=== PATIENT | female | born 1945 | race Caucasian/White ===

== ENCOUNTER 2017-06-02 13:48 | Inpatient (IN) ==
[2017-06-02] MEDS ORDERED: Ondansetron 4 MG/2 ML VIAL IVP PRN (17:23)
[2017-06-02] MEDS ORDERED: Acetaminophen 325 MG TABLET PO PRN (17:23)
[2017-06-02] MEDS ORDERED: Naloxone 0.4 MG/ML INJ IVP PRN (17:23)
[2017-06-02] MEDS ORDERED: *HR* Heparin 5,000 UNIT/ML VIAL IVP ONE (17:29)
[2017-06-02] MEDS ORDERED: *HR* Heparin 5,000 UNIT/ML VIAL IVP PRN (17:29)
--- NOTE | 2017-06-02 17:36 | Internal Med History&Physical ---
Date of Encounter: 06/02/17 Time of Encounter: 16:30 Assessment and Plan (1) Pulmonary embolism Current visit: Yes Status: Acute Patient presents with dyspnea, tachycardia and hypoxia. CT angiogram of chest done in the emergency room shows large right-sided PE involving all segmental branches on the right, left upper lobe arteries. Patient is noted to be on Xarelto for the last 1 month for atrial fibrillation. We will hold this for now and start IV heparin drip, monitor PTT. Oncology consulted, full consult in am. Check B/L Lower extremity Venous Doppler. Qualifiers: Pulmonary embolism type: other Chronicity: acute Acute cor pulmonale presence: without acute cor pulmonale Qualified Code(s): I26.99 - Other pulmonary embolism without acute cor pulmonale (2) Atrial fibrillation with rapid ventricular response Current visit: Yes Status: Acute Did not respond to a dose of IV Cardizem push in the ER; started on IV Cardizem drip, titrate to maintain HR<110. Anticoagulation as above. SHe can be switched over to PO Cardizem if tolerated. Second Troponin noted to be 0.07, likely due to tachycardia. Continue Telemetry monitoring and cycle Troponins. Check 2D EChocardiogram. High risk for complications. (3) Hypothyroidism Current visit: Yes Status: Chronic resume Levothyroxine. Qualifiers: Hypothyroidism type: unspecified Qualified Code(s): E03.9 - Hypothyroidism , unspecified (4) Vulvar cancer Current visit: Yes Status: Chronic Receiving chemoradiation; first session of RT supposed to be today but patient presented to ER; Oncology consulted for further recommendations. Internal Medicine - H&P: HPI Chief complaint: Chest pain Admitted From: Emergency Dept Plans for Post Hospital Care: Home History of present illness: Ms. Holt is a 72 year old female with history of HIV fibrillation, vulvar cancer currently on chemoradiation, presents with complaints of sudden onset of chest tightness. Patient reports being in her usual state of health until this morning and was on her way for her first session of radiation when she developed sudden onset of chest tightness associated with shortness of breath and difficulty in taking a deep breath and some dizziness. No similar previous episodes. She reports no palpitations, syncope, nausea or vomiting. No fever, chills, productive cough. She recently underwent surgery for pelvic lymph node dissection and subsequently developed leg swelling, that is currently not any worse. Past Med Surg Social Fam HX - Past Medical History Medical history: atrial fibrillation, cancer, hypertension, thyroid disease Psychiatric history: anxiety - Past Surgical History Surgical History: hysterectomy, knee replacement (Bilateral), orthopedic, other (Right heel surgery) - Social History Smoking Status: Never smoker Smokeless Tobacco Status: No Alcohol use: none Drug use: none Current living situation: Home - Independent Activity Level: Independent ambulation Recent Out of Country Travel Within the Last 8 Weeks: No - Family History Father Hx Family Cardiac Disorders: Yes ([place]) Hx Family Respiratory Disorders: No Hx Family Cancer: Yes (prostate) Hx Family GI Disorders: No Hx Family Genitourinary Disorders: No Hx Family Endocrine Disorder: Yes (DM) Hx Family Musculoskeletal Disorders: No Hx Family Neuromuscular Disorders: No Hx Family Neurologic Disorders: No Hx Family HEENT Disorders: No Hx Family Autoimmune Disorders: No Hx Family Reproductive Disorders: No Hx Family Psychosocial Disorders: No Hx Family Medical Disorders: No Internal Medicine - H&P: Meds Levothyroxine [Synthroid] 150 mcg PO QAM 04/25/17 [History] Topiramate [Topamax] 25 mg PO HS 04/25/17 [History] Ondansetron [Zofran] 4 mg PO Q8HR PRN #90 tablet 05/02/17 [Rx] Prochlorperazine Maleate [Compazine] 10 mg PO Q8HR PRN #90 tablet 05/02/17 [Rx] Oxycodone HCl [Oxaydo] 5 - 10 mg PO Q4-6H PRN #120 tablet.orl 05/14/17 [Rx] Rivaroxaban [Xarelto] 20 mg PO DAILY 05/14/17 [History] Dibucaine [Nupercainal] 56.7 gm RC Q3-4H PRN #1 oint...g. 05/21/17 [Rx] Allergies No Known Allergies Allergy (Verified 04/25/17 13:55) All Systems PM: A 10-system review of systems was performed and is negative for pertinent findings except as documented above in the HPI. - Constitutional Constitutional: no chills, no fever(s), no night sweats - EENT Eyes: no change in vision, no discharge, no pain, no photophobia Ears: no ear discharge, no ear pain, no tinnitus Nose, mouth and throat: no dysphagia, no nasal discharge, no neck pain, no sore throat - Cardiovascular Cardiovascular ROS IM: chest pain, dyspnea, dyspnea on exertion, edema - Respiratory Respiratory: dyspnea, dyspnea on exertion - Gastrointestinal Gastrointestinal: no abdominal pain, no diarrhea, no hematemesis, no hematochezia, no melena, no nausea, no vomiting - Genitourinary Genitourinary: no change in urinary stream, no dysuria, no flank pain, no hematuria - Musculoskeletal Musculoskeletal ROS IM: no numbness, no tingling - Integumentary Integumentary IM: no rash, no unusual bruising - Neurological Neurological ROS: no confusion, no convulsions, no focal weakness, no numbness, no tingling, no tremor(s) - Hematologic/Lymphatic Hematologic/Lymphatic: no easy bruising - Constitutional Vitals: Temp Pulse Resp BP Pulse Ox 98.0 F 132 18 121/89 96 06/02/17 15:57 06/02/17 15:57 06/02/17 15:57 06/02/17 15:57 06/02/17 16:04 General appearance: Present: A&O X 3, answers questions appropriately - Respiratory Respiratory exam: Present: CTAB. Absent: accessory muscle use, rales, rhonchi, wheezes - Cardiovascular Cardiovascular exam: Present: irregular rhythm, +S1, +S2, tachycardia. Absent: diastolic murmur, gallop, rubs, systolic murmur - GI/Abdominal GI/Abdominal exam: Present: normal bowel sounds, soft, no peritoneal signs. Absent: distended, tenderness - Extremities Exam Extremities exam: Present: full ROM, pedal edema (3+ pitting pedal edema bilaterally extending up to knees), warm, radial pulses palpable and symetrical. Absent: calf tenderness, cyanotic - Neurological Exam Neurological exam: Present: CN II-XII intact, oriented X3, no focal deficits. Absent: pronater drift, facial droop, speech deficit - Skin Skin exam: Present: dry, intact Internal Med - H&P Results - Labs CBC & Chem 7: 06/02/17 17:34 - EKG Data -: EKG Interpreted by Myself (Irregular narrow complex tachycardia at ventricular rate 1 68 bpm)
[2017-06-02 17:53] LABS: Mean Corpuscular Hemoglobin 27.6 pg (28.0-33.3); Mean Platelet Volume 10.2 fL (9.4-12.4)
[2017-06-02 17:55] LABS: Hematocrit 35.5 % (35.3-44.9); Immature Platelets 3.1 % (1.1-6.1); Mean Corpuscular Volume 89.2 fL (83.0-100.0); Red Blood Count 3.98 M/mcL (3.82-4.97); Red Cell Distribution Width 16.4 % (11.5-14.5)
[2017-06-02 18:10] LABS: INR 1.2
[2017-06-02 18:37] LABS: Activated Partial Thrombo Time > 360.0 Seconds (26.0-36.0)
[2017-06-02] MEDS: *HR* OxyCODONE Immed Rel 5 MG TABLET PO PRN (18:40)
[2017-06-02 18:45] LABS: Heparin anti-factor XA UFH 1.55 IU/mL (0.30-0.70)
[2017-06-02] MEDS: Heparin 25,000 UNIT/500 ML D5W 25,000 UNIT/500 ML MLS IVC SCH (18:59)
[2017-06-02] MEDS: Topiramate 25 MG TABLET PO SCH (20:41)
[2017-06-02] MEDS: *HR* Morphine 2 MG/ML SYRINGE IVP PRN (23:07)
[2017-06-03 01:31] LABS: Basophils % 0.3 %; Eosinophils % 0.5 %; Hematocrit 33.5 % (35.3-44.9); Hemoglobin 10.4 g/dL (11.5-15.4); Immature Granulocytes % 0.4 % (0-4); Lymphocytes # 0.9 K/mcL (0.6-4.6); Lymphocytes % 12.4 %; Mean Corpuscular Hemoglobin 27.5 pg (28.0-33.3); Mean Corpuscular Volume 88.6 fL (83.0-100.0); Mean Platelet Volume 10.1 fL (9.4-12.4); Monocytes # 0.8 K/mcL (0.0-1.3); Monocytes % 10.8 %; Neutrophils # 5.6 K/mcL (1.6-8.9); Red Blood Count 3.78 M/mcL (3.82-4.97); Red Cell Distribution Width 16.4 % (11.5-14.5); Segmented Neutrophils % 75.6 %
[2017-06-03 01:35] LABS: Platelet Count 81 K/mcL (140-400)
[2017-06-03 01:49] LABS: Calcium 8.3 mg/dL (8.6-10.8); Chol/HDL Ratio 3.5 (0-4.9); Magnesium 1.4 mg/dL (1.6-2.6); Phosphorous 2.8 mg/dL (2.3-4.7); Potassium 4.2 mEq/L (3.5-4.5)
[2017-06-03] MEDS: *HR* OxyCODONE Immed Rel 5 MG TABLET PO PRN ×2 (02:47→12:29)
[2017-06-03] MEDS: *HR* Morphine 2 MG/ML SYRINGE IVP PRN ×3 (04:55→19:29)
[2017-06-03] MEDS: *HR* Heparin 5,000 UNIT/ML VIAL IVP PRN ×2 (10:11→18:35)
[2017-06-03] MEDS: Heparin 25,000 UNIT/500 ML D5W 25,000 UNIT/500 ML MLS IVC SCH (15:10)
--- NOTE | 2017-06-03 16:43 | Oncology Inp Consult Note ---
Date of Encounter: 06/03/17 Time of Encounter: 03:25 - Data of Consult Requesting Physician: Jyotsna Boswell Primary Care Provider: Ashley Wright, - Consult Narrative History of present illness: Ms. Holt is a 72 year old female Past Med Surg Social Fam HX - Past Medical History Medical history: atrial fibrillation, cancer, hypertension, thyroid disease Psychiatric history: anxiety - Past Surgical History Surgical History: hysterectomy, knee replacement (Bilateral), orthopedic, other (Right heel surgery) - Social History Smoking Status: Never smoker Smokeless Tobacco Status: No Alcohol use: none Drug use: none - Family History Father Hx Family Cardiac Disorders: Yes ([place]) Hx Family Respiratory Disorders: No Hx Family Cancer: Yes (prostate) Hx Family GI Disorders: No Hx Family Genitourinary Disorders: No Hx Family Endocrine Disorder: Yes (DM) Hx Family Musculoskeletal Disorders: No Hx Family Neuromuscular Disorders: No Hx Family Neurologic Disorders: No Hx Family HEENT Disorders: No Hx Family Autoimmune Disorders: No Hx Family Reproductive Disorders: No Hx Family Psychosocial Disorders: No Hx Family Medical Disorders: No Medications and Allergies Levothyroxine [Synthroid] 150 mcg PO QAM 04/25/17 [History] Topiramate [Topamax] 25 mg PO HS 04/25/17 [History] Ondansetron [Zofran] 4 mg PO Q8HR PRN #90 tablet 05/02/17 [Rx] Prochlorperazine Maleate [Compazine] 10 mg PO Q8HR PRN #90 tablet 05/02/17 [Rx] Oxycodone HCl [Oxaydo] 5 - 10 mg PO Q4-6H PRN #120 tablet.orl 05/14/17 [Rx] Rivaroxaban [Xarelto] 20 mg PO DAILY 05/14/17 [History] Dibucaine [Nupercainal] 56.7 gm RC Q3-4H PRN #1 oint...g. 05/21/17 [Rx] Allergies No Known Allergies Allergy (Verified 04/25/17 13:55) Oncology - Exam - Constitutional Vitals: Temp Pulse Resp BP Pulse Ox 98.2 F 119 16 121/96 93 06/03/17 15:13 06/03/17 16:10 06/03/17 16:10 06/03/17 16:10 06/03/17 16:10 Oncology - Results - Labs Labs: Short CBC 06/02/17 06/03/17 Range/Units 17:34 01:22 WBC 7.0 7.4 (4.3-11.1) K/mcL Hgb 11.0 L 10.4 L (11.5-15.4) g/dL Hct 35.5 33.5 L (35.3-44.9) % Plt Count 84 L 81 L (140-400) K/mcL Neutrophils # 5.6 (1.6-8.9) K/mcL BMP 06/03/17 01:22 Sodium 138 Potassium 4.2 Chloride 111 H Carbon Dioxide 21 BUN 28 H Creatinine 1.19 H Glucose 124 H Calcium 8.3 L Cardiac Enzymes 06/02/17 06/03/17 06/03/17 Range/Units 17:34 01:22 04:59 Troponin I 0.07 H* 0.04 H* 0.03 (0-0.03) ng/mL Consult Discharge Plan - Plan Referrals: Ashley Wright CNP [Primary Care Provider] - 06/10/17 1:00 pm ()
--- NOTE | 2017-06-03 16:59 | Internal Med Progress Note ---
Date of Encounter: 06/03/17 Time of Encounter: 10:45 - Assessment and plan (1) Pulmonary embolism Current Visit: Yes Status: Acute Assessment and plan: Patient presented with dyspnea, tachycardia and hypoxia. CT and chest showed large right-sided pulmonary embolism involving all segmental branches on the right, left upper lobe arteries. She was on Xarelto for the last month for atrial fibrillation. She was started on heparin drip. Oncology consulted. Venous Doppler lower extremities pending. Echocardiogram revealed LVEF 50%, normal right ventricular size and function. Moderate tricuspid regurgitation. Qualifiers: Pulmonary embolism type: other Chronicity: acute Acute cor pulmonale presence: without acute cor pulmonale Qualified Code(s): I26.99 - Other pulmonary embolism without acute cor pulmonale (2) Acute respiratory failure with hypoxia Current Visit: Yes Status: Acute Assessment and plan: oxygen at home. secondary to pulmonary embolism and A. fib with RVR. As above. (3) Atrial fibrillation with rapid ventricular response Current Visit: Yes Status: Acute Assessment and plan: Continue Cardizem drip. Start beta gavi in the morning. (4) Hypothyroidism Current Visit: Yes Status: Chronic Assessment and plan: Check TSH, free T4. Hold levothyroxine. Qualifiers: Hypothyroidism type: unspecified Qualified Code(s): E03.9 - Hypothyroidism , unspecified (5) Vulvar cancer Current Visit: Yes Status: Chronic Assessment and plan: Continue pain medications from home. - Subjective Interval history: Patient complains of chronic pain in vulvar area. - Constitutional Vitals: Temp Pulse Resp BP Pulse Ox 98.2 F 119 16 121/96 93 06/03/17 15:13 06/03/17 16:10 06/03/17 16:10 06/03/17 16:10 06/03/17 16:10 General appearance: Present: cooperative, A&O X 3, pleasant, no acute distress, answers questions appropriately - Neck Neck exam general surgery: Present: supple, trachea midline. Absent: lymphadenopathy - Respiratory Respiratory exam: Present: CTAB - Cardiovascular Cardiovascular exam: Present: RRR - GI/Abdominal GI/Abdominal exam: Present: soft. Absent: distended, tenderness Additional comments: Left lower quadrant wound with clear liquid secretion. - Extremities Exam Extremities exam: Present: pedal edema (2+ lower extremity edema.) - Back Exam Back exam: Absent: CVA tenderness (L), CVA tenderness (R) - Neurological Exam Neurological exam: Present: alert, oriented X3, no focal deficits, strengths equal and symetr throughout. Absent: facial droop, speech deficit - Skin Skin exam: Absent: intact (There is an opening at the left lower quadrant with a urine-like fluid secretion coming through.) Internal Medicine: Result - Labs CBC & Chem 7: 06/03/17 01:22 06/03/17 01:22 Labs: Short CBC 06/02/17 06/03/17 Range/Units 17:34 01:22 WBC 7.0 7.4 (4.3-11.1) K/mcL Hgb 11.0 L 10.4 L (11.5-15.4) g/dL Hct 35.5 33.5 L (35.3-44.9) % Plt Count 84 L 81 L (140-400) K/mcL Neutrophils # 5.6 (1.6-8.9) K/mcL BMP 06/03/17 01:22 Sodium 138 Potassium 4.2 Chloride 111 H Carbon Dioxide 21 BUN 28 H Creatinine 1.19 H Glucose 124 H Calcium 8.3 L Cardiac Enzymes 06/02/17 06/03/17 06/03/17 Range/Units 17:34 01:22 04:59 Troponin I 0.07 H* 0.04 H* 0.03 (0-0.03) ng/mL - ABG Interpretation ABG results: PT/INR, D-dimer PT 13.0 Seconds (9.4-12.1) H 06/02/17 17:34 Consult Discharge Plan - Plan Referrals: Ashley Wright CNP [Primary Care Provider] - 06/10/17 1:00 pm ()
[2017-06-03] MEDS: Topiramate 25 MG TABLET PO SCH (19:29)
[2017-06-04] MEDS: *HR* Morphine 2 MG/ML SYRINGE IVP PRN ×3 (00:58→09:14)
[2017-06-04 05:08] LABS: Basophils % 0.5 %; Immature Granulocytes % 0.5 % (0-4); Mean Corpuscular Hemoglobin 27.6 pg (28.0-33.3)
[2017-06-04 05:11] LABS: Eosinophils # 0.1 K/mcL (0.0-0.6); Eosinophils % 0.8 %; Hematocrit 32.9 % (35.3-44.9); Hemoglobin 10.2 g/dL (11.5-15.4); Immature Platelets 3.7 % (1.1-6.1); Lymphocytes # 0.8 K/mcL (0.6-4.6); Lymphocytes % 13.7 %; Mean Corpuscular Volume 88.9 fL (83.0-100.0); Monocytes # 0.6 K/mcL (0.0-1.3); Monocytes % 10.6 %; Neutrophils # 4.4 K/mcL (1.6-8.9); Red Cell Distribution Width 16.4 % (11.5-14.5); Segmented Neutrophils % 73.9 %
[2017-06-04 05:19] LABS: Platelet Count 80 K/mcL (140-400)
[2017-06-04 05:27] LABS: BUN/Creatinine Ratio 22 (6-26); Blood Urea Nitrogen 22 mg/dL (7-20); Calcium 8.4 mg/dL (8.6-10.8); Carbon Dioxide 25 mEq/L (19-29); Chloride 110 mEq/L (98-109); Glucose 125 mg/dL (70-99); Magnesium 1.5 mg/dL (1.6-2.6); Osmolality,Calculated 293 (280-300); Potassium 4.1 mEq/L (3.5-4.5); Sodium 139 mEq/L (136-145); eGFR For African Americans > 60 (> 60); eGFR For Non-African Americans 54 (> 60)
[2017-06-04 05:52] LABS: Thyroid Stimulating Hormone 7.02 mcIU/mL (0.350-4.840)
[2017-06-04] MEDS: *HR* OxyCODONE Immed Rel 5 MG TABLET PO PRN ×3 (07:45→23:55)
[2017-06-04] MEDS ORDERED: Magnesium Sulfate 1 GM in D5% in Water 100 ML IVPB ONE (09:13)
[2017-06-04] MEDS: Heparin 25,000 UNIT/500 ML D5W 25,000 UNIT/500 ML MLS IVC SCH (10:40)
--- NOTE | 2017-06-04 11:44 | Oncology Inp Progress Note ---
Date of Encounter: 06/04/17 Time of Encounter: 11:42 (1) Atrial fibrillation with rapid ventricular response Current Visit: Yes Status: Acute Assessment and plan: Management as per primary team. She is being transitioned from IV cardizem to PO management. (2) Pulmonary embolism Current Visit: Yes Status: Acute Assessment and plan: remains hemodynamically stable. In view that renal function has normalized, there is not need to monitor with anti Xa levels; this could be a consideration as outpatient if she experiences acute kidney injury while on lovenox. - Consider starting lovenox 90 mg SQ BID, and continue for 4 weeks. - As outpatient, after a period of 3-4 weeks, she can be transition to po regimen ( either coumadin or apixaban) for long term care phlebotomist management. - Regardless whether this episode of VTE was provoked versus unprovoked, she will need long term care phlebotomist anticoaguation in view of concomitant Afib - Primary team made aware of recommendations of primary radiation oncologist. If her discharge gets delayed, may consider to resume radiation therapy as inpatient. - Follow up with medical oncologist as outpatient to consider resuming weekly [place] regimen. Qualifiers: Pulmonary embolism type: other Chronicity: acute Acute cor pulmonale presence: without acute cor pulmonale Qualified Code(s): I26.99 - Other pulmonary embolism without acute cor pulmonale (3) Vulvar cancer Current Visit: Yes Status: Chronic Assessment and plan: Please arrange follow up with medical oncology and radiation oncology to resume chemoradiation. Oncology: Subj Interval history: Patient reports feeling ok, still with pain at the vulvar area. tolerating meals. Denies nausea, vomiting, diarrhea, fever, CP, SOB, hematochezia. - Constitutional Vitals: Vital Signs Temp Pulse Resp BP Pulse Ox 06/04/17 10:30 62 06/04/17 09:30 60 102/76 96 06/04/17 09:10 62 120/87 95 06/04/17 08:57 55 06/04/17 08:53 69 106/81 94 06/04/17 08:10 80 121/84 06/04/17 07:40 97.9 F 104 18 108/80 96 06/04/17 07:15 98.4 F 92 18 131/82 97 06/04/17 05:30 86 123/88 06/04/17 04:30 88 118/96 06/04/17 03:30 85 118/83 06/04/17 02:50 98.5 F 101 16 120/68 97 06/04/17 02:39 90 120/68 06/04/17 01:30 95 112/83 06/03/17 23:30 100 118/84 06/03/17 23:00 98.5 F 97 16 123/85 97 06/03/17 22:30 104 117/82 06/03/17 21:30 91 116/88 06/03/17 20:30 98 113/78 06/03/17 19:59 98.5 F 103 16 115/88 92 06/03/17 19:30 103 115/88 06/03/17 17:29 120 16 123/78 93 06/03/17 16:10 119 16 121/96 93 06/03/17 15:13 98.2 F 105 16 121/73 93 06/03/17 14:01 118 126/96 91 06/03/17 12:37 109 117/94 92 Intake and Output 06/03/17 06/04/17 06/04/17 23:59 07:59 15:59 Intake Total 142 / 142 358 / 358 527 / 527 Output Total 0 / 0 Balance 142 / 142 358 / 358 527 / 527 Intake: IV Fluids 92 / 92 208 / 208 407 / 407 Cardizem 125 MG In 125 / 125 111 / 111 Dextrose 5% 100 ML @ 5 MG /HR 5 mls/hr IVC .Q24H K[facility] Rx#:[id number] Heparin 25,000 UNIT/500 92 / 92 83 / 83 296 / 296 ML D5W 25,000 unit In 500 ml @ 14 UNIT/KG/HR 26.32 mls/hr IVC .Q19H [facility] Rx# :[id number] Oral 50 / 50 150 / 150 120 / 120 Output: Urine 0 / 0 Other: Meal Breakfast Percent of Meal Consumed 50% # Voids 0 1 # Urine Diapers 2 1 Weight 94.4 kg Patient Weight 06/04/17 23:59 Weight 94.4 kg - Head Head exam: Present: normal inspection - ENT ENT exam: Present: normal oropharynx - Respiratory Respiratory exam: Present: CTAB - Cardiovascular Cardiovascular exam: Present: +S1 - GI/Abdominal GI/Abdominal exam: Present: normal bowel sounds - Neurological Exam Neurological exam: Present: oriented X3 Oncology: Obj Data - Labs CBC & Chem 7: 06/04/17 04:04 06/04/17 04:04 Labs: Laboratory Results - last 24 hr 06/03/17 06/03/17 06/04/17 16:00 17:34 04:04 WBC RBC Hgb Hct MCV MCH MCHC RDW Plt Count MPV Immature Gran % Seg Neutrophils % Lymphocytes % Monocytes % Eosinophils % Basophils % Neutrophils # Lymphocytes # Monocytes # Eosinophils # Basophils # Immature Plt Fraction APTT 54.6 H Sodium Potassium Chloride Carbon Dioxide BUN Creatinine Est GFR ( Amer) Est GFR (Non-Af Amer) BUN/Creatinine Ratio Glucose Calculated Osmolality Calcium Magnesium TSH 7.020 H Free T4 1.09 Urine Creatinine < 5 06/04/17 06/04/17 06/04/17 04:04 04:04 04:04 WBC 5.9 RBC 3.70 L Hgb 10.2 L Hct 32.9 L MCV 88.9 MCH 27.6 L MCHC 31.0 L RDW 16.4 H Plt Count 80 L MPV 10.0 Immature Gran % 0.5 Seg Neutrophils % 73.9 Lymphocytes % 13.7 Monocytes % 10.6 Eosinophils % 0.8 Basophils % 0.5 Neutrophils # 4.4 Lymphocytes # 0.8 Monocytes # 0.6 Eosinophils # 0.1 Basophils # 0.0 Immature Plt Fraction 3.7 APTT 36.6 H Sodium 139 Potassium 4.1 Chloride 110 H Carbon Dioxide 25 BUN 22 H Creatinine 1.01 Est GFR ( Amer) > 60 Est GFR (Non-Af Amer) 54 L BUN/Creatinine Ratio 22 Glucose 125 H Calculated Osmolality 293 Calcium 8.4 L Magnesium 1.5 L TSH Free T4 Urine Creatinine - ABG Interpretation ABG results: PT/INR, D-dimer PT 13.0 Seconds (9.4-12.1) H 06/02/17 17:34 Consult Discharge Plan - Plan Referrals: Ashley Wright CNP [Primary Care Provider] - 06/10/17 1:00 pm ()
[2017-06-04] MEDS: *HR* Enoxaparin 100 MG/ML SYRINGE SQ SCH ×2 (12:38→23:48)
[2017-06-04] MEDS ORDERED: Furosemide 40 MG/4 ML VIAL IVP ONE (14:37)
[2017-06-04] MEDS: *HR* HYDROmorphone (PF) 1 MG/ML SYRINGE IVP PRN ×3 (17:20→23:55)
--- NOTE | 2017-06-04 18:14 | Internal Med Progress Note ---
Date of Encounter: 06/04/17 Time of Encounter: 10:45 - Assessment and plan (1) Pulmonary embolism Current Visit: Yes Status: Acute Assessment and plan: Patient presented with dyspnea, tachycardia and hypoxia. CT and chest showed large right-sided pulmonary embolism involving all segmental branches on the right, left upper lobe arteries. She was on Xarelto for the last month for atrial fibrillation. She was started on heparin drip in ED. Echocardiogram revealed LVEF 50%, normal right ventricular size and function. Moderate tricuspid regurgitation. Appreciate oncology input. stop heparin drip. start lovenox. will need lovenox for at least 4 weeks. Qualifiers: Pulmonary embolism type: other Chronicity: acute Acute cor pulmonale presence: without acute cor pulmonale Qualified Code(s): I26.99 - Other pulmonary embolism without acute cor pulmonale (2) Acute respiratory failure with hypoxia Current Visit: Yes Status: Acute Assessment and plan: not on oxygen at home. secondary to pulmonary embolism and A. fib with RVR. continue oxygen supplementation. wean off oxygen to keep SaO2>92%. (3) Atrial fibrillation with rapid ventricular response Current Visit: Yes Status: Acute Assessment and plan: start oral metoprolol. stop Cardizem drip. Secondary to PE. close monitor. will add cardizem if HR>90 (4) Hypothyroidism Current Visit: Yes Status: Chronic Assessment and plan: high TSH with normal free T4. resume levothyroxine Qualifiers: Hypothyroidism type: unspecified Qualified Code(s): E03.9 - Hypothyroidism , unspecified (5) Vulvar cancer Current Visit: Yes Status: Chronic Assessment and plan: Continue pain medications from home. - Subjective Interval history: Patient reports no change in pain with pain meds. - Constitutional Vitals: Temp Pulse Resp BP Pulse Ox 98 F 125 18 140/103 95 06/04/17 15:39 06/04/17 17:34 06/04/17 15:39 06/04/17 17:34 06/04/17 17:34 General appearance: Present: cooperative, A&O X 3, pleasant, no acute distress, answers questions appropriately - Neck Neck exam general surgery: Present: supple, trachea midline. Absent: lymphadenopathy - Respiratory Respiratory exam: Present: CTAB - Cardiovascular Cardiovascular exam: Present: irregular rhythm - GI/Abdominal GI/Abdominal exam: Present: normal bowel sounds, soft. Absent: distended, tenderness Additional comments: left quadrant old wound with small opening and clear drainage. - Extremities Exam Extremities exam: Present: pedal edema (2+ Le edema) - Back Exam Back exam: Absent: CVA tenderness (L), CVA tenderness (R) - Neurological Exam Neurological exam: Present: alert, oriented X3, no focal deficits, strengths equal and symetr throughout. Absent: facial droop, speech deficit - Skin Skin exam: Absent: rash Internal Medicine: Result - Labs CBC & Chem 7: 06/04/17 04:04 06/04/17 04:04 Labs: Short CBC 06/04/17 Range/Units 04:04 WBC 5.9 (4.3-11.1) K/mcL Hgb 10.2 L (11.5-15.4) g/dL Hct 32.9 L (35.3-44.9) % Plt Count 80 L (140-400) K/mcL Neutrophils # 4.4 (1.6-8.9) K/mcL BMP 06/04/17 04:04 Sodium 139 Potassium 4.1 Chloride 110 H Carbon Dioxide 25 BUN 22 H Creatinine 1.01 Glucose 125 H Calcium 8.4 L - ABG Interpretation ABG results: PT/INR, D-dimer PT 13.0 Seconds (9.4-12.1) H 06/02/17 17:34 Consult Discharge Plan - Plan Referrals: Ashley Wright CNP [Primary Care Provider] - 06/10/17 1:00 pm ()
[2017-06-04] MEDS: Topiramate 25 MG TABLET PO SCH (19:58)
[2017-06-05 04:32] LABS: Basophils % 0.4 %; Eosinophils % 0.2 %; Immature Granulocytes % 0.6 % (0-4); Lymphocytes # 0.7 K/mcL (0.6-4.6); Lymphocytes % 14.9 %; Mean Corpuscular HGB Conc 30.6 g/dL (31.6-35.5); Mean Corpuscular Hemoglobin 27.3 pg (28.0-33.3); Mean Corpuscular Volume 89.3 fL (83.0-100.0); Mean Platelet Volume 10.7 fL (9.4-12.4); Monocytes # 0.6 K/mcL (0.0-1.3); Monocytes % 11.9 %; Neutrophils # 3.5 K/mcL (1.6-8.9); Platelet Count 104 K/mcL (140-400); Red Blood Count 4.03 M/mcL (3.82-4.97); Red Cell Distribution Width 16.4 % (11.5-14.5)
[2017-06-05 04:43] LABS: Calcium 8.9 mg/dL (8.6-10.8); Magnesium 2.1 mg/dL (1.6-2.6); Potassium 4.6 mEq/L (3.5-4.5)
[2017-06-05 09:29] LABS: Calcium 8.9 mg/dL (8.6-10.8); Potassium 4.3 mEq/L (3.5-4.5)
--- NOTE | 2017-06-05 09:47 | Oncology Inp Progress Note ---
Date of Encounter: 06/05/17 Time of Encounter: 09:45 (1) Atrial fibrillation with rapid ventricular response Current Visit: Yes Status: Acute Assessment and plan: Now transitioned to PO regimen (2) Pulmonary embolism Current Visit: Yes Status: Acute Assessment and plan: Patient started on lovenox yesterday, second dose today. Unfortunately she has developed JOSE, with serum creatinine of 1.5 mg/dl ( x 2), what may be secondary to recent IV contrast for her CTA, although another etiologies are possible. In view of her JOSE, lovenox is not the more appropriate option, therefore I would recommend to discontinue lovenox, and start heparin drip 12 hours after the administration of the last dose of Lovenox. - I would also recommend to start coumadin today evening ( suggested dose 5 mg daily). 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 - Consider to resume radiation as inpatient as part of the management of her early stage vulvar cancer. I wont administrate cisplatin in view of her ongoing JOSE. - Upon discharge arrange for follow up with medical oncologist and radiation oncologist. - May consider certified nurse operating room consult if JOSE fails to improve. Qualifiers: Pulmonary embolism type: other Chronicity: acute Acute cor pulmonale presence: without acute cor pulmonale Qualified Code(s): I26.99 - Other pulmonary embolism without acute cor pulmonale (3) Vulvar cancer Current Visit: Yes Status: Chronic Assessment and plan: Please arrange follow up with medical oncology and radiation oncology to resume chemoradiation. Oncology: Subj Interval history: Patient currently working with Physical therapy. - Constitutional Vitals: Vital Signs Temp Pulse Resp BP Pulse Ox 06/05/17 07:00 97.5 F L 90 12 111/79 98 06/05/17 03:16 97.7 F 84 13 126/97 96 06/04/17 23:37 97.5 F L 89 15 130/96 98 06/04/17 19:55 97.5 F L 112 17 135/106 96 06/04/17 17:34 125 140/103 95 06/04/17 15:39 98 F 102 18 110/92 96 06/04/17 11:55 97.8 F 66 18 104/76 97 06/04/17 10:30 62 Intake and Output 06/04/17 06/05/17 06/05/17 23:59 07:59 15:59 Intake Total 0 / 0 200 / 200 120 / 120 Balance 0 / 0 200 / 200 120 / 120 Intake: Oral 0 / 0 200 / 200 120 / 120 Other: Meal Breakfast Percent of Meal Consumed 25% # Urine Diapers 1 1 Weight 93.3 kg Patient Weight 06/05/17 23:59 Weight 93.3 kg - Head Head exam: Present: normal inspection - Respiratory Respiratory exam: Present: CTAB - Cardiovascular Cardiovascular exam: Present: +S1 - GI/Abdominal GI/Abdominal exam: Present: normal bowel sounds - Extremities Exam Extremities exam: Present: normal inspection Oncology: Obj Data - Labs CBC & Chem 7: 06/05/17 03:59 06/05/17 09:02 Labs: Laboratory Results - last 24 hr 06/05/17 06/05/17 06/05/17 03:59 03:59 09:02 WBC 4.9 RBC 4.03 Hgb 11.0 L Hct 36.0 MCV 89.3 MCH 27.3 L MCHC 30.6 L RDW 16.4 H Plt Count 104 L MPV 10.7 Immature Gran % 0.6 Seg Neutrophils % 72.0 Lymphocytes % 14.9 Monocytes % 11.9 Eosinophils % 0.2 Basophils % 0.4 Neutrophils # 3.5 Lymphocytes # 0.7 Monocytes # 0.6 Eosinophils # 0.0 Basophils # 0.0 Sodium 140 139 Potassium 4.6 H 4.3 Chloride 109 108 Carbon Dioxide 25 25 BUN 29 H 31 H Creatinine 1.51 H 1.52 H Est GFR ( Amer) 41 L 41 L Est GFR (Non-Af Amer) 34 L 33 L BUN/Creatinine Ratio 19 20 Glucose 128 H 152 H Calculated Osmolality 297 298 Calcium 8.9 8.9 Magnesium 2.1 - ABG Interpretation ABG results: PT/INR, D-dimer PT 13.0 Seconds (9.4-12.1) H 06/02/17 17:34 Consult Discharge Plan - Plan Referrals: Ashley Wright CNP [Primary Care Provider] - 06/10/17 1:00 pm () Prescriptions: Enoxaparin [Lovenox] 90 mg SQ Q12HR #54 syr
[2017-06-05] MEDS: *HR* OxyCODONE Immed Rel 5 MG TABLET PO PRN ×2 (10:53→19:39)
[2017-06-05 14:49] LABS: Calcium 9.1 mg/dL (8.6-10.8); Potassium 3.9 mEq/L (3.5-4.5)
[2017-06-05] MEDS: *HR* HYDROmorphone (PF) 1 MG/ML SYRINGE IVP PRN ×2 (14:50→19:40)
[2017-06-05] MEDS: *HR* Heparin 5,000 UNIT/ML VIAL IVP PRN (14:53)
[2017-06-05] MEDS: Heparin 25,000 UNIT/500 ML D5W 25,000 UNIT/500 ML MLS IVC SCH (14:55)
--- NOTE | 2017-06-05 15:00 | Electrocardiograph Report ---
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
--- NOTE | 2017-06-05 19:03 | Internal Med Progress Note ---
Date of Encounter: 06/05/17 Time of Encounter: 09:45 - Assessment and plan (1) JOSE (acute kidney injury) Current Visit: Yes Status: Acute Assessment and plan: start iv fluid gentle hydration. check LFT. close monitor. avoid nephrotoxic agents as possible. (2) Pulmonary embolism Current Visit: Yes Status: Acute Assessment and plan: Patient presented with dyspnea, tachycardia and hypoxia. CT and chest showed large right-sided pulmonary embolism involving all segmental branches on the right, left upper lobe arteries. She was on Xarelto for the last month for atrial fibrillation. She was started on heparin drip in ED. Echocardiogram revealed LVEF 50%, normal right ventricular size and function. Moderate tricuspid regurgitation. Appreciate oncology input. stop lovenox due to JOSE. resume heparin drip. Qualifiers: Pulmonary embolism type: other Chronicity: acute Acute cor pulmonale presence: without acute cor pulmonale Qualified Code(s): I26.99 - Other pulmonary embolism without acute cor pulmonale (3) Acute respiratory failure with hypoxia Current Visit: Yes Status: Acute Assessment and plan: not on oxygen at home. secondary to pulmonary embolism and A. fib with RVR. continue oxygen supplementation. wean off oxygen to keep SaO2>92%. (4) Atrial fibrillation with rapid ventricular response Current Visit: Yes Status: Acute Assessment and plan: hr is better. continue oral metoprolol and oral cardizem. Secondary to PE. close monitor. (5) Hypothyroidism Current Visit: Yes Status: Chronic Assessment and plan: high TSH with normal free T4. continue levothyroxine Qualifiers: Hypothyroidism type: unspecified Qualified Code(s): E03.9 - Hypothyroidism , unspecified (6) Vulvar cancer Current Visit: Yes Status: Chronic Assessment and plan: Continue pain medications from home. - Subjective Interval history: Patient reports her pain is better controlled. - Constitutional Vitals: Temp Pulse Resp BP Pulse Ox 97.6 F 98 14 110/78 98 06/05/17 15:38 06/05/17 17:39 06/05/17 15:38 06/05/17 15:38 06/05/17 15:38 General appearance: Present: cooperative, A&O X 3, pleasant, no acute distress, answers questions appropriately - Neck Neck exam general surgery: Present: supple, trachea midline. Absent: lymphadenopathy - Respiratory Respiratory exam: Present: CTAB - Cardiovascular Cardiovascular exam: Present: RRR - GI/Abdominal GI/Abdominal exam: Present: normal bowel sounds, soft. Absent: distended, tenderness - Extremities Exam Extremities exam: Present: pedal edema (1+ LE edema) - Back Exam Back exam: Absent: CVA tenderness (L), CVA tenderness (R) - Neurological Exam Neurological exam: Present: alert, oriented X3. Absent: facial droop, speech deficit Internal Medicine: Result - Labs CBC & Chem 7: 06/05/17 03:59 06/05/17 14:30 Labs: Short CBC 06/05/17 Range/Units 03:59 WBC 4.9 (4.3-11.1) K/mcL Hgb 11.0 L (11.5-15.4) g/dL Hct 36.0 (35.3-44.9) % Plt Count 104 L (140-400) K/mcL Neutrophils # 3.5 (1.6-8.9) K/mcL BMP 06/05/17 06/05/17 06/05/17 03:59 09:02 14:30 Sodium 140 139 141 Potassium 4.6 H 4.3 3.9 Chloride 109 108 108 Carbon Dioxide 25 25 23 BUN 29 H 31 H 32 H Creatinine 1.51 H 1.52 H 1.67 H Glucose 128 H 152 H 120 H Calcium 8.9 8.9 9.1 - ABG Interpretation ABG results: PT/INR, D-dimer PT 13.0 Seconds (9.4-12.1) H 06/02/17 17:34 Consult Discharge Plan - Plan Referrals: Ashley Wright CNP [Primary Care Provider] - 06/10/17 1:00 pm () Prescriptions: Enoxaparin [Lovenox] 90 mg SQ Q12HR #54 syr
[2017-06-05] MEDS: Topiramate 25 MG TABLET PO SCH (20:52)
[2017-06-06] MEDS: *HR* HYDROmorphone (PF) 1 MG/ML SYRINGE IVP PRN ×5 (02:47→17:32)
[2017-06-06 04:30] LABS: Basophils % 0.4 %
[2017-06-06 04:32] LABS: Eosinophils # 0.1 K/mcL (0.0-0.6); Eosinophils % 1.1 %; Hematocrit 34.1 % (35.3-44.9); Hemoglobin 10.5 g/dL (11.5-15.4); Immature Granulocytes % 0.6 % (0-4); Immature Platelets 3.9 % (1.1-6.1); Lymphocytes # 0.9 K/mcL (0.6-4.6); Lymphocytes % 18.5 %; Mean Corpuscular HGB Conc 30.8 g/dL (31.6-35.5); Mean Corpuscular Hemoglobin 27.8 pg (28.0-33.3); Mean Corpuscular Volume 90.2 fL (83.0-100.0); Mean Platelet Volume 10.6 fL (9.4-12.4); Monocytes # 0.6 K/mcL (0.0-1.3); Monocytes % 12.3 %; Nucleated Red Blood Cells 0.4 /100 WBC (0); Red Blood Count 3.78 M/mcL (3.82-4.97); Red Cell Distribution Width 16.4 % (11.5-14.5); Segmented Neutrophils % 67.1 %
[2017-06-06 04:38] LABS: Neutrophils # 3.2 K/mcL (1.6-8.9); Platelet Count 93 K/mcL (140-400)
[2017-06-06 04:44] LABS: Albumin 2.4 g/dL (3.5-5.0); Albumin/Globulin Ratio 0.7 (1.1-2.2); Bilirubin,Direct 0.3 mg/dL (0.0-0.5); Bilirubin,Indirect 0.4 mg/dL (0.0-1.2); Bilirubin,Total 0.7 mg/dL (0.2-1.2); Calcium 8.8 mg/dL (8.6-10.8); Globulin 3.6 g/dL (2.4-3.5); Magnesium 1.6 mg/dL (1.6-2.6)
[2017-06-06 05:34] LABS: Platelet Estimate Decreased (Normal)
[2017-06-06] MEDS: *HR* Heparin 5,000 UNIT/ML VIAL IVP PRN (06:17)
[2017-06-06] MEDS: *HR* OxyCODONE Immed Rel 5 MG TABLET PO PRN ×2 (06:22→15:07)
[2017-06-06] MEDS ORDERED: Albumin 25% 25gram/100mL 25 GM/100 ML IV.SOLN IVPB ONE (08:04)
--- NOTE | 2017-06-06 09:01 | Oncology Inp Progress Note ---
Date of Encounter: 06/06/17 Time of Encounter: 08:53 (1) Atrial fibrillation with rapid ventricular response Current Visit: Yes Status: Acute Assessment and plan: HR at goal. Management as per primary team (2) Pulmonary embolism Current Visit: Yes Status: Acute Assessment and plan: - JOSE with slight improvement. Continue heparin drip, start coumadin today, suggested dose 5 mg daily, adjust based on INR. INR goal 2-3. - Please get in touch with radiation oncologist Dr. Quintanilla to assess whether daily radiation ( while inpatient) is feasible. - In view of her ongoing JOSE, at this time I would not consider weekly cisplatin. - Upon discharge arrange for follow up with medical oncologist and radiation oncologist. Qualifiers: Pulmonary embolism type: other Chronicity: acute Acute cor pulmonale presence: without acute cor pulmonale Qualified Code(s): I26.99 - Other pulmonary embolism without acute cor pulmonale (3) Vulvar cancer Current Visit: Yes Status: Chronic Assessment and plan: Please arrange follow up with medical oncology and radiation oncology to resume chemoradiation. Oncology: Subj Interval history: Denies significant overnight events. No bleeding events. tolerating meals. - Constitutional Vitals: Vital Signs Temp Pulse Resp BP Pulse Ox 06/06/17 08:05 136 103/76 95 06/06/17 07:43 97.9 F 16 104/90 96 06/06/17 03:22 97.9 F 98 14 111/95 96 06/05/17 23:39 97.5 F L 103 17 114/81 96 06/05/17 19:12 98.0 F 92 15 99/58 97 06/05/17 17:39 98 06/05/17 15:38 97.6 F 92 14 110/78 98 06/05/17 11:05 93 06/05/17 10:59 97.5 F L 84 16 96/82 96 06/05/17 10:14 107 06/05/17 09:10 107 98 Intake and Output 06/05/17 06/06/17 06/06/17 23:59 07:59 15:59 Intake Total 100 / 100 415.7 / 415.7 529 / 529 Output Total 0 / 0 Balance 80 / 80 415.7 / 415.7 529 / 529 Intake: IV Fluids 415.7 / 415.7 479 / 479 0.45% Sodium Chloride 479 / 479 1000 Ml 1000 Ml 1,000 ML @ 60 mls/hr IVC .[id number] KAM Rx#:[id number] Heparin 25,000 UNIT/500 415.7 / 415.7 ML D5W 25,000 unit In 500 ml @ 14 UNIT/KG/HR 26. 124 mls/hr IVC .[id number] KAM Rx#:[id number] Oral 100 / 100 50 / 50 Output: Urine 0 / 0 Other: # Urine Diapers 1 Weight 94.3 kg Patient Weight 06/06/17 23:59 Weight 94.3 kg - Head Head exam: Present: normal inspection - Respiratory Respiratory exam: Present: CTAB - Cardiovascular Cardiovascular exam: Present: +S1, +S2 - GI/Abdominal GI/Abdominal exam: Present: normal bowel sounds - Extremities Exam Extremities exam: Present: normal inspection Oncology: Obj Data - Labs CBC & Chem 7: 06/06/17 03:51 06/06/17 03:51 Labs: Laboratory Results - last 24 hr 06/05/17 06/05/17 06/05/17 09:02 12:59 14:30 WBC RBC Hgb Hct MCV MCH MCHC RDW Plt Count MPV Immature Gran % Seg Neutrophils % Lymphocytes % Monocytes % Eosinophils % Basophils % Neutrophils # Lymphocytes # Monocytes # Eosinophils # Basophils # Nucleated RBCs/100 WBC Platelet Estimate Immature Plt Fraction APTT 30.3 Sodium 139 141 Potassium 4.3 3.9 Chloride 108 108 Carbon Dioxide 25 23 BUN 31 H 32 H Creatinine 1.52 H 1.67 H Est GFR ( Amer) 41 L 36 L Est GFR (Non-Af Amer) 33 L 30 L BUN/Creatinine Ratio 20 19 Glucose 152 H 120 H Calculated Osmolality 298 300 Calcium 8.9 9.1 Magnesium Total Bilirubin Direct Bilirubin Indirect Bilirubin AST ALT Alkaline Phosphatase Serum Total Protein Albumin Globulin Albumin/Globulin Ratio 06/05/17 06/06/17 06/06/17 21:29 03:51 03:51 WBC 4.7 RBC 3.78 L Hgb 10.5 L Hct 34.1 L MCV 90.2 MCH 27.8 L MCHC 30.8 L RDW 16.4 H Plt Count 93 L MPV 10.6 Immature Gran % 0.6 Seg Neutrophils % 67.1 Lymphocytes % 18.5 Monocytes % 12.3 Eosinophils % 1.1 Basophils % 0.4 Neutrophils # 3.2 Lymphocytes # 0.9 Monocytes # 0.6 Eosinophils # 0.1 Basophils # 0.0 Nucleated RBCs/100 WBC 0.4 H Platelet Estimate Decreased L Immature Plt Fraction 3.9 APTT 70.0 H D Sodium 139 Potassium 4.0 Chloride 107 Carbon Dioxide 27 BUN 30 H Creatinine 1.53 H Est GFR ( Amer) 40 L Est GFR (Non-Af Amer) 33 L BUN/Creatinine Ratio 20 Glucose 119 H Calculated Osmolality 295 Calcium 8.8 Magnesium 1.6 Total Bilirubin 0.7 Direct Bilirubin 0.3 Indirect Bilirubin 0.4 AST 9 ALT 11 Alkaline Phosphatase 103 Serum Total Protein 6.0 Albumin 2.4 L Globulin 3.6 H Albumin/Globulin Ratio 0.7 L 06/06/17 03:51 WBC RBC Hgb Hct MCV MCH MCHC RDW Plt Count MPV Immature Gran % Seg Neutrophils % Lymphocytes % Monocytes % Eosinophils % Basophils % Neutrophils # Lymphocytes # Monocytes # Eosinophils # Basophils # Nucleated RBCs/100 WBC Platelet Estimate Immature Plt Fraction APTT 57.1 H Sodium Potassium Chloride Carbon Dioxide BUN Creatinine Est GFR ( Amer) Est GFR (Non-Af Amer) BUN/Creatinine Ratio Glucose Calculated Osmolality Calcium Magnesium Total Bilirubin Direct Bilirubin Indirect Bilirubin AST ALT Alkaline Phosphatase Serum Total Protein Albumin Globulin Albumin/Globulin Ratio - Impressions Impressions Retroperitoneum Ultrasound 06/05/17 19:05 IMPRESSION: 1. Mild right hydronephrosis. Moderate left hydronephrosis. D/ / 06/06/2017 05:50:48 Leonidas Castañeda MD / [email or web address] Interpreting Provider: Leonidas Castañeda MD - ABG Interpretation ABG results: PT/INR, D-dimer PT 13.0 Seconds (9.4-12.1) H 06/02/17 17:34 Consult Discharge Plan - Plan Referrals: Ashley Wright CNP [Primary Care Provider] - 06/10/17 1:00 pm () Prescriptions: Enoxaparin [Lovenox] 90 mg SQ Q12HR #54 syr
[2017-06-06] MEDS: Heparin 25,000 UNIT/500 ML D5W 25,000 UNIT/500 ML MLS IVC SCH (09:19)
[2017-06-06 15:36] LABS: Calcium 8.9 mg/dL (8.6-10.8)
[2017-06-06] MEDS ORDERED: Lidocaine Jelly 6 ml Syringe MM ONE (16:45)
[2017-06-06] MEDS ORDERED: Amiodarone Premix 360 MG/200 ML BAG IVC ONE (16:48)
--- NOTE | 2017-06-06 17:22 | Urology - Consult Note ---
Date of Encounter: 06/06/17 Time of Encounter: 17:20 - Assessment and Plan (1) Urinary retention Current Visit: Yes Status: Acute Assessment and plan: I have asked the nursing staff to place a catheter for urinary retention. Patient states that she will allow an attempt of catheter placement even though she has significant irritation in the vaginal region secondary to prior radiation. 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 Urology CN:HPI Consult date: 06/06/17 Reason for consult Urology: Hydronephrosis Requesting physician: Jyotsna Boswell History of present illness: Mirtha is a 72-year-old female who is known to the urology service for chronic bilateral stable UPJ obstruction. Patient was admitted for A. fib with RVR. Patient was found to have a slowly rising creatinine and poor urine output. CT scan was done which revealed bilateral stable hydronephrosis with a markedly distended bladder. Patient does admit to some lower abdominal pressure/ discomfort. Past Med Surg Social Fam HX - Past Medical History Medical history: atrial fibrillation, cancer, hypertension, thyroid disease Psychiatric history: anxiety - Past Surgical History Surgical History: hysterectomy, knee replacement (Bilateral), orthopedic, other (Right heel surgery) - Social History Smoking Status: Never smoker Smokeless Tobacco Status: No Alcohol use: none Drug use: none - Family History Father Hx Family Cardiac Disorders: Yes (AL) Hx Family Respiratory Disorders: No Hx Family Cancer: Yes (prostate) Hx Family GI Disorders: No Hx Family Genitourinary Disorders: No Hx Family Endocrine Disorder: Yes (DM) Hx Family Musculoskeletal Disorders: No Hx Family Neuromuscular Disorders: No Hx Family Neurologic Disorders: No Hx Family HEENT Disorders: No Hx Family Autoimmune Disorders: No Hx Family Reproductive Disorders: No Hx Family Psychosocial Disorders: No Hx Family Medical Disorders: No Medications and Allergies Levothyroxine [Synthroid] 150 mcg PO QAM 04/25/17 [History] Topiramate [Topamax] 25 mg PO HS 04/25/17 [History] Ondansetron [Zofran] 4 mg PO Q8HR PRN #90 tablet 05/02/17 [Rx] Prochlorperazine Maleate [Compazine] 10 mg PO Q8HR PRN #90 tablet 05/02/17 [Rx] Oxycodone HCl [Oxaydo] 5 - 10 mg PO Q4-6H PRN #120 tablet.orl 05/14/17 [Rx] Rivaroxaban [Xarelto] 20 mg PO DAILY 05/14/17 [History] Dibucaine [Nupercainal] 56.7 gm RC Q3-4H PRN #1 oint...g. 05/21/17 [Rx] Enoxaparin [Lovenox] 90 mg SQ Q12HR #54 syr 06/04/17 [Rx] Allergies No Known Allergies Allergy (Verified 04/25/17 13:55) Review of Systems - Constitutional no chills (Patient does appear mildly confused) - EENT Nose, mouth and throat: no dizziness - Cardiovascular no chest pain - Gastrointestinal abdominal pain Exam Initial Vital Signs Temp Pulse Resp BP Pulse Ox 98.0 F 132 18 121/89 97 06/02/17 15:57 06/02/17 15:57 06/02/17 15:57 06/02/17 15:57 06/02/17 15:57 - General physical appearance Present: well developed - Respiratory Present: normal respiratory effort - Cardiovascular Cardiovascular exam IM: tachycardia - Abdomen Abdomen: Present: soft Urology Results - Labs 06/06/17 03:51 06/06/17 14:59 Abnormal lab results RBC 3.78 M/mcL (3.82-4.97) L 06/06/17 03:51 Hgb 10.5 g/dL (11.5-15.4) L 06/06/17 03:51 Hct 34.1 % (35.3-44.9) L 06/06/17 03:51 MCH 27.8 pg (28.0-33.3) L 06/06/17 03:51 MCHC 30.8 g/dL (31.6-35.5) L 06/06/17 03:51 RDW 16.4 % (11.5-14.5) H 06/06/17 03:51 Plt Count 93 K/mcL (140-400) L 06/06/17 03:51 Nucleated RBCs/100 WBC 0.4 /100 WBC (0) H 06/06/17 03:51 Platelet Estimate Decreased (Normal) L 06/06/17 03:51 PT 13.0 Seconds (9.4-12.1) H 06/02/17 17:34 APTT 83.6 Seconds (26.0-36.0) H 06/06/17 12:13 Heparin Anti-Xa, Unfract 1.55 IU/mL (0.30-0.70) H* 06/02/17 17:34 BUN 32 mg/dL (7-20) H 06/06/17 14:59 Creatinine 1.33 mg/dL (0.57-1.11) H 06/06/17 14:59 Est GFR ( Amer) 47 (> 60) L 06/06/17 14:59 Est GFR (Non-Af Amer) 39 (> 60) L 06/06/17 14:59 Glucose 131 mg/dL (70-99) H 06/06/17 14:59 Albumin 2.4 g/dL (3.5-5.0) L 06/06/17 03:51 Globulin 3.6 g/dL (2.4-3.5) H 06/06/17 03:51 Albumin/Globulin Ratio 0.7 (1.1-2.2) L 06/06/17 03:51 TSH 7.020 mcIU/mL (0.350-4.840) H 06/04/17 04:04 Diabetes panel 06/06/17 06/06/17 Range/Units 03:51 14:59 Sodium 139 138 (136-145) mEq/L Potassium 4.0 4.0 (3.5-4.5) mEq/L Chloride 107 106 (98-109) mEq/L Carbon Dioxide 27 26 (19-29) mEq/L BUN 30 H 32 H (7-20) mg/dL Creatinine 1.53 H 1.33 H (0.57-1.11) mg/dL Glucose 119 H 131 H (70-99) mg/dL Calcium 8.8 8.9 (8.6-10.8) mg/dL AST 9 (5-34) Units/L ALT 11 (0-55) Units/L Alkaline Phosphatase 103 (38-126) Units/L Albumin 2.4 L (3.5-5.0) g/dL Calcium panel 06/06/17 06/06/17 Range/Units 03:51 14:59 Calcium 8.8 8.9 (8.6-10.8) mg/dL Albumin 2.4 L (3.5-5.0) g/dL Pituitary panel 06/06/17 06/06/17 Range/Units 03:51 14:59 Sodium 139 138 (136-145) mEq/L Potassium 4.0 4.0 (3.5-4.5) mEq/L Chloride 107 106 (98-109) mEq/L Carbon Dioxide 27 26 (19-29) mEq/L BUN 30 H 32 H (7-20) mg/dL Creatinine 1.53 H 1.33 H (0.57-1.11) mg/dL Glucose 119 H 131 H (70-99) mg/dL Calcium 8.8 8.9 (8.6-10.8) mg/dL Adrenal panel 06/06/17 06/06/17 Range/Units 03:51 14:59 Sodium 139 138 (136-145) mEq/L Potassium 4.0 4.0 (3.5-4.5) mEq/L Chloride 107 106 (98-109) mEq/L Carbon Dioxide 27 26 (19-29) mEq/L BUN 30 H 32 H (7-20) mg/dL Creatinine 1.53 H 1.33 H (0.57-1.11) mg/dL Glucose 119 H 131 H (70-99) mg/dL Calcium 8.8 8.9 (8.6-10.8) mg/dL Total Bilirubin 0.7 (0.2-1.2) mg/dL AST 9 (5-34) Units/L ALT 11 (0-55) Units/L Alkaline Phosphatase 103 (38-126) Units/L Albumin 2.4 L (3.5-5.0) g/dL All other labs normal. - Imaging CT scan - abdomen: image reviewed CT scan - pelvis: image reviewed Consult Discharge Plan - Plan Referrals: Ashley Wright CNP [Primary Care Provider] - 06/10/17 1:00 pm () Prescriptions: Enoxaparin [Lovenox] 90 mg SQ Q12HR #54 syr
--- NOTE | 2017-06-06 19:06 | Internal Med Progress Note ---
Date of Encounter: 06/06/17 Time of Encounter: 09:45 - Assessment and plan (1) JOSE (acute kidney injury) Current Visit: Yes Status: Acute Assessment and plan: received iv fluid gentle hydration. albumin is 2.4. add iv albumin 25 gm. repeat bmp this afternoon. renal Us shows moderate left hydronephrosis and small right hydronephrosis. appreciate Urology input: singleton catheter. close monitor. avoid nephrotoxic agents as possible. (2) Pulmonary embolism Current Visit: Yes Status: Acute Assessment and plan: Patient presented with dyspnea, tachycardia and hypoxia. CT and chest showed large right-sided pulmonary embolism involving all segmental branches on the right, left upper lobe arteries. She was on Xarelto for the last month for atrial fibrillation. She was started on heparin drip in ED. Echocardiogram revealed LVEF 50%, normal right ventricular size and function. Moderate tricuspid regurgitation. Appreciate oncology input. continue heparin drip. start warfarin tonight. Qualifiers: Pulmonary embolism type: other Chronicity: acute Acute cor pulmonale presence: without acute cor pulmonale Qualified Code(s): I26.99 - Other pulmonary embolism without acute cor pulmonale (3) Atrial fibrillation with rapid ventricular response Current Visit: Yes Status: Acute Assessment and plan: hr is adequate in the 80s. continue oral metoprolol and oral cardizem. Secondary to PE. close monitor. (4) Acute respiratory failure with hypoxia Current Visit: Yes Status: Acute Assessment and plan: not on oxygen at home. secondary to pulmonary embolism and A. fib with RVR. continue oxygen supplementation. wean off oxygen to keep SaO2>92%. (5) Hypothyroidism Current Visit: Yes Status: Chronic Assessment and plan: high TSH with normal free T4. continue levothyroxine Qualifiers: Hypothyroidism type: unspecified Qualified Code(s): E03.9 - Hypothyroidism , unspecified (6) Vulvar cancer Current Visit: Yes Status: Chronic Assessment and plan: Continue pain medications from home. continue radiation therapy as scheduled: patient received radiation yesterday and is scheduled for today. - Subjective Interval history: her vulvar pain is well controlled with meds. - Constitutional Vitals: Temp Pulse Resp BP Pulse Ox 99.1 F 125 16 117/70 92 06/06/17 16:39 06/06/17 16:39 06/06/17 16:39 06/06/17 16:39 06/06/17 16:39 General appearance: Present: cooperative, A&O X 3, pleasant, no acute distress, answers questions appropriately - Neck Neck exam general surgery: Present: supple, trachea midline. Absent: lymphadenopathy - Respiratory Respiratory exam: Present: rhonchi - Cardiovascular Cardiovascular exam: Present: irregular rhythm - GI/Abdominal GI/Abdominal exam: Present: normal bowel sounds, soft. Absent: distended, tenderness - Extremities Exam Extremities exam: Present: pedal edema (1+ Le edema) - Back Exam Back exam: Absent: CVA tenderness (L), CVA tenderness (R) - Neurological Exam Neurological exam: Present: alert, oriented X3. Absent: facial droop, speech deficit Internal Medicine: Result - Labs CBC & Chem 7: 06/06/17 03:51 06/06/17 14:59 Labs: Short CBC 06/06/17 Range/Units 03:51 WBC 4.7 (4.3-11.1) K/mcL Hgb 10.5 L (11.5-15.4) g/dL Hct 34.1 L (35.3-44.9) % Plt Count 93 L (140-400) K/mcL Neutrophils # 3.2 (1.6-8.9) K/mcL BMP 06/06/17 06/06/17 03:51 14:59 Sodium 139 138 Potassium 4.0 4.0 Chloride 107 106 Carbon Dioxide 27 26 BUN 30 H 32 H Creatinine 1.53 H 1.33 H Glucose 119 H 131 H Calcium 8.8 8.9 Liver Function 06/06/17 Range/Units 03:51 Total Bilirubin 0.7 (0.2-1.2) mg/dL Direct Bilirubin 0.3 (0.0-0.5) mg/dL AST 9 (5-34) Units/L ALT 11 (0-55) Units/L Alkaline Phosphatase 103 (38-126) Units/L Albumin 2.4 L (3.5-5.0) g/dL - ABG Interpretation ABG results: PT/INR, D-dimer PT 13.0 Seconds (9.4-12.1) H 06/02/17 17:34 - Impressions Impressions Retroperitoneum Ultrasound 06/05/17 19:05 IMPRESSION: 1. Mild right hydronephrosis. Moderate left hydronephrosis. D/ / 06/06/2017 05:50:48 Leonidas Castañeda MD / [facility] Interpreting Provider: Leonidas Castañeda MD Abdomen/Pelvis CT 06/06/17 14:00 IMPRESSION: 1. No hydronephrosis bilaterally. There are bilateral renal parapelvic cysts which likely account for the appearance of hydronephrosis on recently performed ultrasound 2. Nonobstructing left nephrolithiasis 3. Cholelithiasis 4. Colonic diverticulosis 5. Bilateral groin fluid collections presumably postsurgical seromas or hematomas 6. Trace left pleural effusion D/ / Nelson Shannon MD / Nelson Shannon MD Interpreting Provider: Nelson Shannon MD Consult Discharge Plan - Plan Referrals: Ashley Wright CNP [Primary Care Provider] - 06/10/17 1:00 pm () Prescriptions: Enoxaparin [Lovenox] 90 mg SQ Q12HR #54 syr
[2017-06-06] MEDS ORDERED: Warfarin perPT PO PRN (19:08)
--- NOTE | 2017-06-06 19:14 | Event Note ---
Date of Encounter: 06/06/17 Time of Encounter: 16:30 critical care note- first hour. time spent 30 min. 72-year-old female with history of both the cancer on radiation therapy who presents with progressive shortness of breath. She is admitted for acute pulmonary embolism and is being treated with IV heparin drip. Could playbecause of heart rate in the 140s. Stat EKG showed atrial fibrillation with rapid ventricular response, heart rate 125. BP 170/57. SaO2 95% on 2 L. Patient is alert and oriented 3. She denies any chest pain or shortness of breath. She did receive her oral Cardizem and oral metoprolol this morning. She denies any pain. a/p 1) atrial fibrillation with rapid ventricular response. Stat IV Cardizem 10 mg iv. Start amiodarone drip, no bolus. Check chest x-ray. Close monitor.
[2017-06-06] MEDS: *HR* Warfarin 5 MG TABLET PO SCH (20:55)
[2017-06-06] MEDS: Topiramate 25 MG TABLET PO SCH (20:55)
[2017-06-06] MEDS: Amiodarone Premix 360 MG/200 ML BAG IVC SCH (23:24)
[2017-06-07] MEDS: Heparin 25,000 UNIT/500 ML D5W 25,000 UNIT/500 ML MLS IVC SCH ×2 (01:00→17:20)
[2017-06-07 02:34] LABS: Basophils % 0.3 %; Immature Granulocytes % 0.5 % (0-4)
[2017-06-07 02:36] LABS: Eosinophils % 0.5 %; Hematocrit 33.9 % (35.3-44.9); Hemoglobin 10.3 g/dL (11.5-15.4); Immature Platelets 3.5 % (1.1-6.1); Lymphocytes # 0.7 K/mcL (0.6-4.6); Lymphocytes % 19.8 %; Mean Corpuscular HGB Conc 30.4 g/dL (31.6-35.5); Mean Corpuscular Hemoglobin 27.5 pg (28.0-33.3); Mean Corpuscular Volume 90.4 fL (83.0-100.0); Mean Platelet Volume 10.3 fL (9.4-12.4); Monocytes # 0.5 K/mcL (0.0-1.3); Monocytes % 13.3 %; Neutrophils # 2.4 K/mcL (1.6-8.9); Nucleated Red Blood Cells 0.5 /100 WBC (0); Red Blood Count 3.75 M/mcL (3.82-4.97); Red Cell Distribution Width 16.7 % (11.5-14.5); Segmented Neutrophils % 65.6 %
[2017-06-07 02:38] LABS: INR 1.1; Prothrombin Time 12.3 Seconds (9.4-12.1)
[2017-06-07 02:51] LABS: Platelet Count 81 K/mcL (140-400)
[2017-06-07 02:52] LABS: Calcium 8.8 mg/dL (8.6-10.8); Potassium 3.9 mEq/L (3.5-4.5)
[2017-06-07] MEDS: *HR* Heparin 5,000 UNIT/ML VIAL IVP PRN ×2 (06:45→21:32)
[2017-06-07] MEDS: *HR* OxyCODONE Immed Rel 5 MG TABLET PO PRN ×3 (07:41→20:26)
--- NOTE | 2017-06-07 09:13 | Urology Progress Note ---
Date of Encounter: 06/07/17 Time of Encounter: 09:12 - Assessment and Plan (1) Urinary retention Current Visit: Yes Status: Acute Assessment and plan: continue with cath. serum creatinine stable at this time. will add vaginal lidocaine cream. 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 feeling a little better. 900ml returned with cath placement yesterday. sig burning in vaginal area. Objective Initial Vital Signs Temp Pulse Resp BP Pulse Ox 98.0 F 132 18 121/89 97 06/02/17 15:57 06/02/17 15:57 06/02/17 15:57 06/02/17 15:57 06/02/17 15:57 - General physical appearance Present: well developed - Abdomen Present: soft - Labs 06/07/17 02:21 06/07/17 02:21 Diabetes panel 06/06/17 06/07/17 Range/Units 14:59 02:21 Sodium 138 138 (136-145) mEq/L Potassium 4.0 3.9 (3.5-4.5) mEq/L Chloride 106 107 (98-109) mEq/L Carbon Dioxide 26 22 (19-29) mEq/L BUN 32 H 32 H (7-20) mg/dL Creatinine 1.33 H 1.34 H (0.57-1.11) mg/dL Glucose 131 H 134 H (70-99) mg/dL Calcium 8.9 8.8 (8.6-10.8) mg/dL Calcium panel 06/06/17 06/07/17 Range/Units 14:59 02:21 Calcium 8.9 8.8 (8.6-10.8) mg/dL Pituitary panel 06/06/17 06/07/17 Range/Units 14:59 02:21 Sodium 138 138 (136-145) mEq/L Potassium 4.0 3.9 (3.5-4.5) mEq/L Chloride 106 107 (98-109) mEq/L Carbon Dioxide 26 22 (19-29) mEq/L BUN 32 H 32 H (7-20) mg/dL Creatinine 1.33 H 1.34 H (0.57-1.11) mg/dL Glucose 131 H 134 H (70-99) mg/dL Calcium 8.9 8.8 (8.6-10.8) mg/dL Adrenal panel 06/06/17 06/07/17 Range/Units 14:59 02:21 Sodium 138 138 (136-145) mEq/L Potassium 4.0 3.9 (3.5-4.5) mEq/L Chloride 106 107 (98-109) mEq/L Carbon Dioxide 26 22 (19-29) mEq/L BUN 32 H 32 H (7-20) mg/dL Creatinine 1.33 H 1.34 H (0.57-1.11) mg/dL Glucose 131 H 134 H (70-99) mg/dL Calcium 8.9 8.8 (8.6-10.8) mg/dL Consult Discharge Plan - Plan Referrals: Ashley Wright CNP [Primary Care Provider] - 06/10/17 1:00 pm () Prescriptions: Enoxaparin [Lovenox] 90 mg SQ Q12HR #[id number]
[2017-06-07] MEDS: ALPRAZolam 0.25 MG TABLET PO SCH ×2 (09:37→21:02)
[2017-06-07] MEDS: Metoprolol 100 MG TABLET PO SCH ×2 (09:37→21:02)
[2017-06-07] MEDS: Lidocaine OINT 35.44 GM TUBE TP PRN (09:38)
--- NOTE | 2017-06-07 10:41 | Oncology Inp Progress Note ---
Date of Encounter: 06/07/17 Time of Encounter: 10:39 (1) Atrial fibrillation with rapid ventricular response Current Visit: Yes Status: Acute Assessment and plan: I appreciate management of primary team. Currently on amiodarone drip, asymptomatic with HR in the 70s (2) Pulmonary embolism Current Visit: Yes Status: Acute Assessment and plan: - Continue heparin. Discontinue heparin once she has been on heparin at least for 5 days AND INR has been therapeutic x 2. - No bleeding events. - Coumadin to adjust per INR. INR goal 2-3 - Upon discharge arrange for follow up with medical oncologist and radiation oncologist. Qualifiers: Pulmonary embolism type: other Chronicity: acute Acute cor pulmonale presence: without acute cor pulmonale Qualified Code(s): I26.99 - Other pulmonary embolism without acute cor pulmonale (3) Vulvar cancer Current Visit: Yes Status: Chronic Assessment and plan: Currently undergoing radiation as inpatient. will hold off on weekly cisplatin due to JOSE. Oncology: Subj Interval history: Reports not complaints at the time of the visit. Currently on amiodarone drip for episode of Afib with RVR. Currently HR in the 70s. denies nausea, vomiting, diarrhea, constipation. denies bleeding events. - Constitutional Vitals: Vital Signs Temp Pulse Resp BP Pulse Ox 06/07/17 09:00 104 114/84 06/07/17 07:29 98.2 F 114 16 120/73 100 06/07/17 07:00 114 06/07/17 06:00 97 105/85 100 06/07/17 05:38 99.0 F 95 14 119/58 100 06/07/17 05:00 97 119/85 100 06/07/17 04:00 89 120/88 100 06/07/17 03:00 97 128/93 100 06/07/17 02:00 106 111/89 99 06/07/17 01:00 87 115/83 06/07/17 00:15 98.9 F 86 18 105/75 100 06/07/17 00:00 95 105/75 06/06/17 23:00 93 135/87 06/06/17 22:00 98 109/86 06/06/17 21:00 98.5 F 109 16 104/91 100 06/06/17 20:00 106 130/114 06/06/17 19:00 92 100/77 95 06/06/17 16:39 99.1 F 125 16 117/70 92 06/06/17 15:10 133 16 107/86 93 06/06/17 12:20 106 105/83 95 06/06/17 11:29 98.9 F 108 16 90/74 92 Intake and Output 06/06/17 06/07/17 06/07/17 23:59 07:59 15:59 Intake Total 489 / 489 300 / 300 240 / 240 Output Total 900 / 900 300 / 300 Balance -411 / -411 0 / 0 240 / 240 Intake: IV Fluids 489 / 489 300 / 300 Amiodarone Drip Premix 200 / 200 360mg/200mL 360 mg In 200 ml @ 1 MG/MIN 33.333 mls /hr IVC ONCE ONE Rx#: [id number] Heparin 25,000 UNIT/500 289 / 289 300 / 300 ML D5W 25,000 unit In 500 ml @ 14 UNIT/KG/HR 26. 124 mls/hr IVC .Q19H9M [facility] Rx#:[id number] Oral 240 / 240 Output: Urine 900 / 900 Urethral (Bernal) 900 / 900 Catheter 300 / 300 Other: Meal Breakfast Percent of Meal Consumed 20% Weight 94.3 kg Patient Weight 06/07/17 23:59 Weight 94.3 kg - Head Head exam: Present: normal inspection - Respiratory Respiratory exam: Present: CTAB - Cardiovascular Cardiovascular exam: Present: irregular rhythm - GI/Abdominal GI/Abdominal exam: Present: normal bowel sounds - Extremities Exam Extremities exam: Present: pedal edema - Neurological Exam Neurological exam: Present: oriented X3 Oncology: Obj Data - Labs CBC & Chem 7: 06/07/17 02:21 06/07/17 02:21 Labs: Laboratory Results - last 24 hr 06/06/17 06/06/17 06/06/17 12:13 14:59 18:02 WBC RBC Hgb Hct MCV MCH MCHC RDW Plt Count MPV Immature Gran % Seg Neutrophils % Lymphocytes % Monocytes % Eosinophils % Basophils % Neutrophils # Lymphocytes # Monocytes # Eosinophils # Basophils # Nucleated RBCs/100 WBC Immature Plt Fraction PT INR APTT 83.6 H 64.1 H Sodium 138 Potassium 4.0 Chloride 106 Carbon Dioxide 26 BUN 32 H Creatinine 1.33 H Est GFR ( Amer) 47 L Est GFR (Non-Af Amer) 39 L BUN/Creatinine Ratio 24 Glucose 131 H Calculated Osmolality 295 Calcium 8.9 Magnesium Free T4 06/07/17 06/07/17 06/07/17 02:21 02:21 02:21 WBC 3.7 L RBC 3.75 L Hgb 10.3 L Hct 33.9 L MCV 90.4 MCH 27.5 L MCHC 30.4 L RDW 16.7 H Plt Count 81 L MPV 10.3 Immature Gran % 0.5 Seg Neutrophils % 65.6 Lymphocytes % 19.8 Monocytes % 13.3 Eosinophils % 0.5 Basophils % 0.3 Neutrophils # 2.4 Lymphocytes # 0.7 Monocytes # 0.5 Eosinophils # 0.0 Basophils # 0.0 Nucleated RBCs/100 WBC 0.5 H Immature Plt Fraction 3.5 PT INR APTT Sodium 138 Potassium 3.9 Chloride 107 Carbon Dioxide 22 BUN 32 H Creatinine 1.34 H Est GFR ( Amer) 47 L Est GFR (Non-Af Amer) 39 L BUN/Creatinine Ratio 24 Glucose 134 H Calculated Osmolality 295 Calcium 8.8 Magnesium 1.7 Free T4 06/07/17 06/07/17 06/07/17 02:21 02:21 02:21 WBC RBC Hgb Hct MCV MCH MCHC RDW Plt Count MPV Immature Gran % Seg Neutrophils % Lymphocytes % Monocytes % Eosinophils % Basophils % Neutrophils # Lymphocytes # Monocytes # Eosinophils # Basophils # Nucleated RBCs/100 WBC Immature Plt Fraction PT 12.3 H INR 1.1 APTT 41.1 H Sodium Potassium Chloride Carbon Dioxide BUN Creatinine Est GFR ( Amer) Est GFR (Non-Af Amer) BUN/Creatinine Ratio Glucose Calculated Osmolality Calcium Magnesium Free T4 1.23 - Impressions Impressions Abdomen/Pelvis CT 06/06/17 14:00 IMPRESSION: 1. No hydronephrosis bilaterally. There are bilateral renal parapelvic cysts which likely account for the appearance of hydronephrosis on recently performed ultrasound 2. Nonobstructing left nephrolithiasis 3. Cholelithiasis 4. Colonic diverticulosis 5. Bilateral groin fluid collections presumably postsurgical seromas or hematomas 6. Trace left pleural effusion D/ / Nelson Shannon MD / Nelson Shannon MD Interpreting Provider: Nelson Shannon MD Chest X-Ray 06/06/17 19:05 IMPRESSION: 1. No focal airspace disease. 2. Cardiomegaly. D/ / Leonidas Castañeda MD / Leonidas Castañeda MD Interpreting Provider: Leonidas Castañeda MD - ABG Interpretation ABG results: PT/INR, D-dimer PT 12.3 Seconds (9.4-12.1) H 06/07/17 02:21 Consult Discharge Plan - Plan Referrals: Ashley Wright CNP [Primary Care Provider] - 06/10/17 1:00 pm ()
[2017-06-07] MEDS: Amiodarone Premix 360 MG/200 ML BAG IVC SCH (11:27)
--- NOTE | 2017-06-07 13:23 | Internal Med Progress Note ---
Date of Encounter: 06/07/17 Time of Encounter: 09:30 - Assessment and plan (1) Atrial fibrillation with rapid ventricular response Current Visit: Yes Status: Acute Assessment and plan: patient had an episode of afib rvr yesterday evening and was started on amiodarone drip. Hr 116 this morning, started on oral metoprolol 100 mg bid and xanax. Now hr is 77. continue to monitor. (2) JOSE (acute kidney injury) Current Visit: Yes Status: Acute Assessment and plan: improved. pre-renal due to overdiuresis and post-obstructive due to chronic bilateral stable UPJ obstruction. renal Us shows moderate left hydronephrosis and small right hydronephrosis. appreciate Urology input. continue singleton catheter. kidney function is stable. close monitor. avoid nephrotoxic agents as possible. (3) Pulmonary embolism Current Visit: Yes Status: Acute Assessment and plan: Patient presented with dyspnea, tachycardia and hypoxia. CT and chest showed large right-sided pulmonary embolism involving all segmental branches on the right, left upper lobe arteries. She was on Xarelto for the last month for atrial fibrillation. She was started on heparin drip in ED. Echocardiogram revealed LVEF 50%, normal right ventricular size and function. Moderate tricuspid regurgitation. Appreciate oncology input. continue heparin drip and warfarin for 4 days total and until inr is therapeutic. inr is 1. Qualifiers: Pulmonary embolism type: other Chronicity: acute Acute cor pulmonale presence: without acute cor pulmonale Qualified Code(s): I26.99 - Other pulmonary embolism without acute cor pulmonale (4) Acute respiratory failure with hypoxia Current Visit: Yes Status: Acute Assessment and plan: not on oxygen at home. secondary to pulmonary embolism and A. fib with RVR. requiring only 2L NC. continue oxygen supplementation. wean off oxygen to keep SaO2>92%. (5) Hypothyroidism Current Visit: Yes Status: Chronic Assessment and plan: high TSH with normal free T4. continue levothyroxine Qualifiers: Hypothyroidism type: unspecified Qualified Code(s): E03.9 - Hypothyroidism , unspecified (6) Vulvar cancer Current Visit: Yes Status: Chronic Assessment and plan: Continue pain medications and xanax added. continue radiation therapy as scheduled: patient received radiation 06/05 and 06/06. - Subjective Interval history: patient feels better this morning. - Constitutional Vitals: Temp Pulse Resp BP Pulse Ox 97.6 F 79 16 112/98 100 06/07/17 11:57 06/07/17 11:57 06/07/17 11:57 06/07/17 11:57 06/07/17 11:57 General appearance: Present: cooperative, A&O X 3, pleasant, no acute distress, answers questions appropriately - Eye Eye exam: Present: PERRL, sclera anicteric - Neck Neck exam general surgery: Present: supple, trachea midline. Absent: lymphadenopathy - Respiratory Respiratory exam: Present: CTAB - Cardiovascular Cardiovascular exam: Present: irregular rhythm, tachycardia - GI/Abdominal GI/Abdominal exam: Present: normal bowel sounds, soft. Absent: distended, tenderness - Extremities Exam Extremities exam: Present: pedal edema (1+ LE edema) - Back Exam Back exam: Absent: CVA tenderness (L), CVA tenderness (R) - Neurological Exam Neurological exam: Present: alert, oriented X3, no focal deficits, strengths equal and symetr throughout. Absent: facial droop, speech deficit - Skin Skin exam: Absent: rash Internal Medicine: Result - Labs CBC & Chem 7: 06/07/17 02:21 06/07/17 02:21 Labs: Short CBC 06/07/17 Range/Units 02:21 WBC 3.7 L (4.3-11.1) K/mcL Hgb 10.3 L (11.5-15.4) g/dL Hct 33.9 L (35.3-44.9) % Plt Count 81 L (140-400) K/mcL Neutrophils # 2.4 (1.6-8.9) K/mcL BMP 06/06/17 06/07/17 14:59 02:21 Sodium 138 138 Potassium 4.0 3.9 Chloride 106 107 Carbon Dioxide 26 22 BUN 32 H 32 H Creatinine 1.33 H 1.34 H Glucose 131 H 134 H Calcium 8.9 8.8 - ABG Interpretation ABG results: PT/INR, D-dimer PT 12.3 Seconds (9.4-12.1) H 06/07/17 02:21 - Impressions Impressions Abdomen/Pelvis CT 06/06/17 14:00 IMPRESSION: 1. No hydronephrosis bilaterally. There are bilateral renal parapelvic cysts which likely account for the appearance of hydronephrosis on recently performed ultrasound 2. Nonobstructing left nephrolithiasis 3. Cholelithiasis 4. Colonic diverticulosis 5. Bilateral groin fluid collections presumably postsurgical seromas or hematomas 6. Trace left pleural effusion D/ / Nelson Shannon MD / Nelson Shannon MD Interpreting Provider: Nelson Shannon MD Chest X-Ray 06/06/17 19:05 IMPRESSION: 1. No focal airspace disease. 2. Cardiomegaly. D/ / Leonidas Castañeda MD / Leonidas Castañeda MD Interpreting Provider: Leonidas Castañeda MD Consult Discharge Plan - Plan Referrals: Ashley Wright [employer] [Primary Care Provider] - 06/10/17 1:00 pm ()
[2017-06-07 13:30] LABS: Activated Partial Thrombo Time 156.1 Seconds (26.0-36.0)
[2017-06-07 13:36] LABS: Heparin anti-factor XA UFH 0.84 IU/mL (0.30-0.70)
[2017-06-07] MEDS: *HR* Warfarin 5 MG TABLET PO SCH (17:03)
[2017-06-07] MEDS: Topiramate 25 MG TABLET PO SCH (21:02)
[2017-06-08 03:43] LABS: INR 1.4; Prothrombin Time 14.8 Seconds (9.4-12.1)
[2017-06-08 03:44] LABS: Red Cell Distribution Width 16.8 % (11.5-14.5)
[2017-06-08 03:46] LABS: Basophils % 0.3 %; Eosinophils % 0.8 %; Hematocrit 30.8 % (35.3-44.9); Hemoglobin 9.6 g/dL (11.5-15.4); Immature Granulocytes % 0.8 % (0-4); Immature Platelets 3.3 % (1.1-6.1); Lymphocytes # 0.6 K/mcL (0.6-4.6); Lymphocytes % 16.1 %; Mean Corpuscular HGB Conc 31.2 g/dL (31.6-35.5); Mean Corpuscular Hemoglobin 27.7 pg (28.0-33.3); Mean Corpuscular Volume 88.8 fL (83.0-100.0); Mean Platelet Volume 10.3 fL (9.4-12.4); Monocytes # 0.4 K/mcL (0.0-1.3); Monocytes % 10.8 %; Red Blood Count 3.47 M/mcL (3.82-4.97); Segmented Neutrophils % 71.2 %
[2017-06-08 03:53] LABS: Calcium 8.2 mg/dL (8.6-10.8); Magnesium 1.4 mg/dL (1.6-2.6); Potassium 3.3 mEq/L (3.5-4.5)
[2017-06-08] MEDS: *HR* HYDROmorphone (PF) 1 MG/ML SYRINGE IVP PRN ×2 (03:53→23:45)
[2017-06-08 04:03] LABS: Neutrophils # 2.9 K/mcL (1.6-8.9); Platelet Count 66 K/mcL (140-400)
[2017-06-08 04:04] LABS: Activated Partial Thrombo Time 192.8 Seconds (26.0-36.0)
[2017-06-08 04:05] LABS: Heparin anti-factor XA UFH 0.87 IU/mL (0.30-0.70)
[2017-06-08] MEDS ORDERED: Magnesium Sulfate 1 GM in D5% in Water 100 ML IVPB ONE (07:35)
[2017-06-08] MEDS: ALPRAZolam 0.25 MG TABLET PO SCH ×2 (07:44→20:38)
[2017-06-08] MEDS: Metoprolol 100 MG TABLET PO SCH ×2 (07:44→20:38)
--- NOTE | 2017-06-08 08:45 | Urology Progress Note ---
Date of Encounter: 06/08/17 Time of Encounter: 08:43 - Assessment and Plan (1) Urinary retention Current Visit: Yes Status: Acute Assessment and plan: keep singleton. will discuss with Dr. Quintanilla regarding xrt and inflammation. may need to keep cath in place until completion of xrt. 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 doing ok. states that lidocaine cream only helped a small amount. good uop from singleton. serum creatinine improved. Objective Initial Vital Signs Temp Pulse Resp BP Pulse Ox 98.0 F 132 18 121/89 97 06/02/17 15:57 06/02/17 15:57 06/02/17 15:57 06/02/17 15:57 06/02/17 15:57 - General physical appearance Present: well developed - Abdomen Present: soft - Genitourinary Present: other (clear urine in tubing. ) - Labs 06/08/17 03:25 06/08/17 03:25 Diabetes panel 06/08/17 Range/Units 03:25 Sodium 138 (136-145) mEq/L Potassium 3.3 L (3.5-4.5) mEq/L Chloride 106 (98-109) mEq/L Carbon Dioxide 27 (19-29) mEq/L BUN 22 H D (7-20) mg/dL Creatinine 1.13 H (0.57-1.11) mg/dL Glucose 117 H (70-99) mg/dL Calcium 8.2 L (8.6-10.8) mg/dL Calcium panel 06/08/17 Range/Units 03:25 Calcium 8.2 L (8.6-10.8) mg/dL Pituitary panel 06/08/17 Range/Units 03:25 Sodium 138 (136-145) mEq/L Potassium 3.3 L (3.5-4.5) mEq/L Chloride 106 (98-109) mEq/L Carbon Dioxide 27 (19-29) mEq/L BUN 22 H D (7-20) mg/dL Creatinine 1.13 H (0.57-1.11) mg/dL Glucose 117 H (70-99) mg/dL Calcium 8.2 L (8.6-10.8) mg/dL Adrenal panel 06/08/17 Range/Units 03:25 Sodium 138 (136-145) mEq/L Potassium 3.3 L (3.5-4.5) mEq/L Chloride 106 (98-109) mEq/L Carbon Dioxide 27 (19-29) mEq/L BUN 22 H D (7-20) mg/dL Creatinine 1.13 H (0.57-1.11) mg/dL Glucose 117 H (70-99) mg/dL Calcium 8.2 L (8.6-10.8) mg/dL Consult Discharge Plan - Plan Referrals: Ashley Wright CNP [Primary Care Provider] - 06/10/17 1:00 pm ()
[2017-06-08] MEDS: Heparin 25,000 UNIT/500 ML D5W 25,000 UNIT/500 ML MLS IVC SCH (09:51)
--- NOTE | 2017-06-08 10:27 | Oncology Inp Progress Note ---
Date of Encounter: 06/08/17 Time of Encounter: 10:25 (1) Vulvar cancer Current Visit: Yes Status: Chronic Assessment and plan: Reports vaginal burning sensation, that could be due to irritation secondary to radiation. Consider local moisturizer. - If not improvement in 24 h, consider discussing with radiation about using local estrogens to prevent vaginal dryness. - If worsening vulvar pain, please request [employer] consult to perform vaginal/ pelvic exam ( radiation could cause vaginal stenosis). - Continue holding off on weekly cisplatin due to JOSE. (2) Pulmonary embolism Current Visit: Yes Status: Acute Assessment and plan: - INR still subtherapeutic. Continue heparin drip. Discontinue heparin once she has been on heparin at least for 5 days AND INR has been therapeutic x 2. - Denies bleeding events. - Coumadin to adjust per INR. INR goal 2-3 Qualifiers: Pulmonary embolism type: other Chronicity: acute Acute cor pulmonale presence: without acute cor pulmonale Qualified Code(s): I26.99 - Other pulmonary embolism without acute cor pulmonale (3) Atrial fibrillation with rapid ventricular response Current Visit: Yes Status: Acute Assessment and plan: Hert rate remains at goal. Management as per primary team. Oncology: Subj Interval history: Denies significant overnight events. Complaints of vaginal burning sensation. Bernal in place as recommended by Urology. Tolerating meals. Denies bleeding events, nausea, vomiting. - Constitutional Vitals: Vital Signs Temp Pulse Resp BP Pulse Ox 06/08/17 07:37 98.0 F 93 18 115/76 99 06/08/17 07:00 83 06/08/17 03:32 99.1 F 80 18 113/77 98 06/07/17 23:24 98.0 F 96 16 138/79 98 06/07/17 20:27 99 F 105 18 138/81 100 06/07/17 16:36 98.6 F 87 16 123/90 100 06/07/17 15:00 93 06/07/17 13:00 90 104/91 06/07/17 11:57 97.6 F 79 16 112/98 100 06/07/17 11:00 77 112/98 Intake and Output 06/07/17 06/08/17 06/08/17 23:59 07:59 15:59 Intake Total 814 / 814 314.8 / 314.8 282.2 / 282.2 Output Total 600 / 600 250 / 250 Balance 214 / 214 64.8 / 64.8 282.2 / 282.2 Intake: IV Fluids 494 / 494 264.8 / 264.8 222.2 / 222.2 Amiodarone Drip Premix 85 / 85 360mg/200mL 360 mg In 200 ml @ 0.5 MG/MIN 16.667 mls/hr IVC CONT [facility] Rx#: [id number] Heparin 25,000 UNIT/500 409 / 409 264.8 / 264.8 127.2 / 127.2 ML D5W 25,000 unit In 500 ml @ 14 UNIT/KG/HR 24. 864 mls/hr IVC .Q20H7M [facility] Rx#:[id number] Magnesium Sulfate 1 GM In 95 / 95 Dextrose 5% 100 ML @ 100 mls/hr IVPB ONCE ONE Rx# :[id number] Oral 320 / 320 50 / 50 60 / 60 Output: Catheter 600 / 600 250 / 250 Other: Meal Dinner Breakfast Percent of Meal Consumed 50% 10% Weight 88.8 kg Patient Weight 06/08/17 23:59 Weight 88.8 kg - Head Head exam: Present: normal inspection - Respiratory Respiratory exam: Present: CTAB - Cardiovascular Cardiovascular exam: Present: irregular rhythm, RRR - GI/Abdominal GI/Abdominal exam: Present: normal bowel sounds - Extremities Exam Extremities exam: Present: pedal edema - Psychiatric Psychiatric exam: Present: normal mood Oncology: Obj Data - Labs CBC & Chem 7: 06/08/17 03:25 06/08/17 03:25 Labs: Laboratory Results - last 24 hr 06/07/17 06/07/17 06/08/17 13:00 21:06 03:25 WBC 4.0 L RBC 3.47 L Hgb 9.6 L Hct 30.8 L MCV 88.8 MCH 27.7 L MCHC 31.2 L RDW 16.8 H Plt Count 66 L MPV 10.3 Immature Gran % 0.8 Seg Neutrophils % 71.2 Lymphocytes % 16.1 Monocytes % 10.8 Eosinophils % 0.8 Basophils % 0.3 Neutrophils # 2.9 Lymphocytes # 0.6 Monocytes # 0.4 Eosinophils # 0.0 Basophils # 0.0 Immature Plt Fraction 3.3 PT INR APTT 156.1 H* D 39.1 H D Heparin Anti-Xa, Unfract 0.84 H Sodium Potassium Chloride Carbon Dioxide BUN Creatinine Est GFR ( Amer) Est GFR (Non-Af Amer) BUN/Creatinine Ratio Glucose Calculated Osmolality Calcium Magnesium 06/08/17 06/08/17 03:25 03:25 WBC RBC Hgb Hct MCV MCH MCHC RDW Plt Count MPV Immature Gran % Seg Neutrophils % Lymphocytes % Monocytes % Eosinophils % Basophils % Neutrophils # Lymphocytes # Monocytes # Eosinophils # Basophils # Immature Plt Fraction PT 14.8 H INR 1.4 APTT 192.8 H* D Heparin Anti-Xa, Unfract 0.87 H Sodium 138 Potassium 3.3 L Chloride 106 Carbon Dioxide 27 BUN 22 H D Creatinine 1.13 H Est GFR ( Amer) 57 L Est GFR (Non-Af Amer) 47 L BUN/Creatinine Ratio 19 Glucose 117 H Calculated Osmolality 290 Calcium 8.2 L Magnesium 1.4 L - ABG Interpretation ABG results: PT/INR, D-dimer PT 14.8 Seconds (9.4-12.1) H 06/08/17 03:25 Consult Discharge Plan - Plan Referrals: Ashley Wright CNP [Primary Care Provider] - 06/10/17 1:00 pm ()
[2017-06-08] MEDS: *HR* Heparin 5,000 UNIT/ML VIAL IVP PRN ×2 (12:08→20:36)
--- NOTE | 2017-06-08 17:16 | Internal Med Progress Note ---
Date of Encounter: 06/08/17 Time of Encounter: 10:00 - Assessment and plan (1) Pulmonary embolism Current Visit: Yes Status: Acute Assessment and plan: Patient presented with dyspnea, tachycardia and hypoxia. CT and chest showed large right-sided pulmonary embolism involving all segmental branches on the right, left upper lobe arteries. She was on Xarelto for the last month for atrial fibrillation. She was started on heparin drip in ED. Echocardiogram revealed LVEF 50%, normal right ventricular size and function. Moderate tricuspid regurgitation. Appreciate oncology input. continue heparin drip and warfarin for 4 days total and until inr is therapeutic. inr is 1.4 Qualifiers: Pulmonary embolism type: other Chronicity: acute Acute cor pulmonale presence: without acute cor pulmonale Qualified Code(s): I26.99 - Other pulmonary embolism without acute cor pulmonale (2) Atrial fibrillation with rapid ventricular response Current Visit: Yes Status: Acute Assessment and plan: 06/06: patient had an episode of afib rvr and required amiodarone drip. Echocardiogram revealed LVEF 50%, normal right ventricular size and function. Moderate tricuspid regurgitation. 06/08: HR is adequate on oral metoprolol 100 mg bid and xanax. telemetry (3) JOSE (acute kidney injury) Current Visit: Yes Status: Acute Assessment and plan: improved. pre-renal due to overdiuresis and post-obstructive due to urinary retention (chronic bilateral stable UPJ obstruction). renal Us shows moderate left hydronephrosis and small right hydronephrosis. appreciate Urology input. Good UOP with singleton. continue singleton catheter. kidney function is improving. close monitor. avoid nephrotoxic agents as possible. (4) Acute respiratory failure with hypoxia Current Visit: Yes Status: Acute Assessment and plan: not on oxygen at home. secondary to pulmonary embolism and A. fib with RVR. requiring only 2L NC. continue oxygen supplementation. wean off oxygen to keep SaO2>92%. (5) Hypothyroidism Current Visit: Yes Status: Chronic Assessment and plan: high TSH with normal free T4. continue levothyroxine Qualifiers: Hypothyroidism type: unspecified Qualified Code(s): E03.9 - Hypothyroidism , unspecified (6) Vulvar cancer Current Visit: Yes Status: Chronic Assessment and plan: Continue pain medications and xanax. continue radiation therapy as scheduled: patient received radiation 06/05 and 06/06. - Subjective Interval history: patient still has moderate pain in vulvar area, pain is relieved by pain meds. - Constitutional Vitals: Temp Pulse Resp BP Pulse Ox 98.6 F 86 16 120/88 98 06/08/17 15:18 06/08/17 15:18 06/08/17 15:18 06/08/17 15:18 06/08/17 15:18 General appearance: Present: cooperative, A&O X 3, pleasant, no acute distress, answers questions appropriately - Neck Neck exam general surgery: Present: supple, trachea midline. Absent: lymphadenopathy - Respiratory Respiratory exam: Present: CTAB - Cardiovascular Cardiovascular exam: Present: irregular rhythm, systolic murmur - GI/Abdominal GI/Abdominal exam: Present: normal bowel sounds, soft. Absent: distended, tenderness - Extremities Exam Extremities exam: Present: pedal edema (1+ Le edema) - Back Exam Back exam: Absent: CVA tenderness (L), CVA tenderness (R) - Neurological Exam Neurological exam: Present: alert, oriented X3. Absent: facial droop, speech deficit Internal Medicine: Result - Labs CBC & Chem 7: 06/08/17 03:25 06/08/17 03:25 Labs: Short CBC 06/08/17 Range/Units 03:25 WBC 4.0 L (4.3-11.1) K/mcL Hgb 9.6 L (11.5-15.4) g/dL Hct 30.8 L (35.3-44.9) % Plt Count 66 L (140-400) K/mcL Neutrophils # 2.9 (1.6-8.9) K/mcL BMP 06/08/17 03:25 Sodium 138 Potassium 3.3 L Chloride 106 Carbon Dioxide 27 BUN 22 H D Creatinine 1.13 H Glucose 117 H Calcium 8.2 L - ABG Interpretation ABG results: PT/INR, D-dimer PT 14.8 Seconds (9.4-12.1) H 06/08/17 03:25 Consult Discharge Plan - Plan Referrals: Ashley Wright CNP [Primary Care Provider] - 06/10/17 1:00 pm ()
[2017-06-08] MEDS: *HR* Warfarin 5 MG TABLET PO SCH (17:37)
[2017-06-08] MEDS: *HR* OxyCODONE Immed Rel 5 MG TABLET PO PRN (19:46)
[2017-06-08] MEDS: Topiramate 25 MG TABLET PO SCH (20:38)
[2017-06-09 03:25] LABS: Basophils % 0.3 %; Eosinophils # 0.1 K/mcL (0.0-0.6); Eosinophils % 1.3 %; Hematocrit 33.5 % (35.3-44.9); Hemoglobin 10.4 g/dL (11.5-15.4); Immature Granulocytes % 0.8 % (0-4); Immature Platelets 3.8 % (1.1-6.1); Lymphocytes # 0.6 K/mcL (0.6-4.6); Lymphocytes % 15.8 %; Mean Corpuscular Hemoglobin 27.4 pg (28.0-33.3); Mean Corpuscular Volume 88.4 fL (83.0-100.0); Mean Platelet Volume 10.2 fL (9.4-12.4); Monocytes # 0.4 K/mcL (0.0-1.3); Monocytes % 9.9 %; Neutrophils # 2.8 K/mcL (1.6-8.9); Red Blood Count 3.79 M/mcL (3.82-4.97); Red Cell Distribution Width 17.1 % (11.5-14.5); Segmented Neutrophils % 71.9 %
[2017-06-09 03:26] LABS: Platelet Count 74 K/mcL (140-400)
[2017-06-09 03:47] LABS: BUN/Creatinine Ratio 20 (6-26); Blood Urea Nitrogen 20 mg/dL (7-20); Calcium 8.5 mg/dL (8.6-10.8); Carbon Dioxide 23 mEq/L (19-29); Chloride 106 mEq/L (98-109); Glucose 120 mg/dL (70-99); Magnesium 1.7 mg/dL (1.6-2.6); Osmolality,Calculated 288 (280-300); Potassium 3.6 mEq/L (3.5-4.5); Sodium 137 mEq/L (136-145); eGFR For African Americans > 60 (> 60); eGFR For Non-African Americans 54 (> 60)
[2017-06-09 03:49] LABS: INR 1.4; Prothrombin Time 15.4 Seconds (9.4-12.1)
[2017-06-09 03:53] LABS: Platelet Estimate Marked Decrease (Normal)
[2017-06-09] MEDS: Heparin 25,000 UNIT/500 ML D5W 25,000 UNIT/500 ML MLS IVC SCH ×3 (04:00→20:05)
[2017-06-09] MEDS: *HR* OxyCODONE Immed Rel 5 MG TABLET PO PRN ×2 (05:57→20:04)
[2017-06-09] MEDS: *HR* HYDROmorphone (PF) 1 MG/ML SYRINGE IVP PRN (07:50)
[2017-06-09] MEDS: Metoprolol 100 MG TABLET PO SCH ×2 (08:41→20:03)
[2017-06-09] MEDS: ALPRAZolam 0.25 MG TABLET PO SCH ×2 (08:41→20:04)
--- NOTE | 2017-06-09 12:54 | Electrocardiograph Report ---
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
--- NOTE | 2017-06-09 13:59 | Internal Med Progress Note ---
Date of Encounter: 06/09/17 Time of Encounter: 09:30 - Assessment and plan (1) Pulmonary embolism Current Visit: Yes Status: Acute Assessment and plan: Patient presented with dyspnea, tachycardia and hypoxia. CT and chest showed large right-sided pulmonary embolism involving all segmental branches on the right, left upper lobe arteries. She was on Xarelto for the last month for atrial fibrillation. She was started on heparin drip in ED. Echocardiogram revealed LVEF 50%, normal right ventricular size and function. Moderate tricuspid regurgitation. Appreciate oncology input. continue heparin drip and warfarin until inr is therapeutic. inr is 1.4 Qualifiers: Pulmonary embolism type: other Chronicity: acute Acute cor pulmonale presence: without acute cor pulmonale Qualified Code(s): I26.99 - Other pulmonary embolism without acute cor pulmonale (2) Atrial fibrillation with rapid ventricular response Current Visit: Yes Status: Acute Assessment and plan: 06/06: patient had an episode of afib rvr and required amiodarone drip. Echocardiogram revealed LVEF 50%, normal right ventricular size and function. Moderate tricuspid regurgitation. 06/09: HR is adequate on oral metoprolol 100 mg bid and xanax. telemetry (3) JOSE (acute kidney injury) Current Visit: Yes Status: Acute Assessment and plan: resolved. pre-renal due to overdiuresis and post-obstructive due to urinary retention (chronic bilateral stable UPJ obstruction). renal Us shows moderate left hydronephrosis and small right hydronephrosis. appreciate Urology input. Good UOP with singleton. continue singleton catheter. close monitor. avoid nephrotoxic agents as possible. (4) Acute respiratory failure with hypoxia Current Visit: Yes Status: Acute Assessment and plan: not on oxygen at home. secondary to pulmonary embolism and A. fib with RVR. tolerating RA well. continue oxygen supplementation. wean off oxygen to keep SaO2>92%. (5) Hypothyroidism Current Visit: Yes Status: Chronic Assessment and plan: high TSH with normal free T4. continue levothyroxine Qualifiers: Hypothyroidism type: unspecified Qualified Code(s): E03.9 - Hypothyroidism , unspecified (6) Vulvar cancer Current Visit: Yes Status: Chronic Assessment and plan: Continue pain medications and xanax. patient received radiation 06/05 and 06/06. - Subjective Interval history: patient wishes not to continue radiation therapy any longer due to severe burning sensation in vulvar area. - Constitutional Vitals: Temp Pulse Resp BP Pulse Ox 98.4 F 80 16 116/84 99 06/09/17 11:40 06/09/17 11:40 06/09/17 11:40 06/09/17 11:40 06/09/17 11:40 General appearance: Present: cooperative, A&O X 3, pleasant, no acute distress, answers questions appropriately - Neck Neck exam general surgery: Present: supple, trachea midline. Absent: lymphadenopathy - Respiratory Respiratory exam: Present: CTAB - Cardiovascular Cardiovascular exam: Present: RRR - GI/Abdominal GI/Abdominal exam: Present: normal bowel sounds, soft. Absent: distended, tenderness - Extremities Exam Extremities exam: Present: pedal edema (+ Le edema) - Neurological Exam Neurological exam: Present: alert, oriented X3. Absent: facial droop, speech deficit - Skin Skin exam: Absent: rash Internal Medicine: Result - Labs CBC & Chem 7: 06/09/17 02:55 06/09/17 02:55 Labs: Short CBC 06/09/17 Range/Units 02:55 WBC 3.9 L (4.3-11.1) K/mcL Hgb 10.4 L (11.5-15.4) g/dL Hct 33.5 L (35.3-44.9) % Plt Count 74 L (140-400) K/mcL Neutrophils # 2.8 (1.6-8.9) K/mcL BMP 06/09/17 02:55 Sodium 137 Potassium 3.6 Chloride 106 Carbon Dioxide 23 BUN 20 Creatinine 1.01 Glucose 120 H Calcium 8.5 L - ABG Interpretation ABG results: PT/INR, D-dimer PT 15.4 Seconds (9.4-12.1) H 06/09/17 02:55 Consult Discharge Plan - Plan Referrals: Ashley Wright CNP [Primary Care Provider] - 06/17/17 1:00 pm ()
[2017-06-09] MEDS: Estrogens, Conjugated CREAM 30 GM TUBE VG SCH (17:59)
[2017-06-09] MEDS ORDERED: *HR* Warfarin 7.5 MG TABLET PO ONE (18:00)
[2017-06-09] MEDS: Topiramate 25 MG TABLET PO SCH (20:04)
[2017-06-10] MEDS: *HR* HYDROmorphone (PF) 1 MG/ML SYRINGE IVP PRN (00:20)
[2017-06-10] MEDS: *HR* OxyCODONE Immed Rel 5 MG TABLET PO PRN ×2 (06:00→18:56)
[2017-06-10 06:09] LABS: Red Blood Count 3.65 M/mcL (3.82-4.97)
[2017-06-10 06:11] LABS: Eosinophils # 0.1 K/mcL (0.0-0.6); Hematocrit 32.5 % (35.3-44.9); Hemoglobin 9.9 g/dL (11.5-15.4); Immature Platelets 4.3 % (1.1-6.1); Lymphocytes # 0.6 K/mcL (0.6-4.6); Mean Corpuscular HGB Conc 30.5 g/dL (31.6-35.5); Mean Corpuscular Hemoglobin 27.1 pg (28.0-33.3); Mean Platelet Volume 10.7 fL (9.4-12.4); Red Cell Distribution Width 16.9 % (11.5-14.5)
[2017-06-10 06:13] LABS: INR 1.7; Prothrombin Time 18.1 Seconds (9.4-12.1)
[2017-06-10 06:15] LABS: Platelet Count 72 K/mcL (140-400)
[2017-06-10 06:16] LABS: Activated Partial Thrombo Time 87.4 Seconds (26.0-36.0)
[2017-06-10 06:23] LABS: BUN/Creatinine Ratio 17 (6-26); Blood Urea Nitrogen 17 mg/dL (7-20); Calcium 8.4 mg/dL (8.6-10.8); Carbon Dioxide 28 mEq/L (19-29); Chloride 104 mEq/L (98-109); Glucose 118 mg/dL (70-99); Magnesium 1.6 mg/dL (1.6-2.6); Osmolality,Calculated 287 (280-300); Potassium 3.5 mEq/L (3.5-4.5); Sodium 137 mEq/L (136-145); eGFR For African Americans > 60 (> 60); eGFR For Non-African Americans 55 (> 60)
[2017-06-10 06:32] LABS: Monocytes # 0.4 K/mcL (0.0-1.3); Neutrophils # 2.1 K/mcL (1.6-8.9); Platelet Estimate Decreased (Normal)
[2017-06-10] MEDS: Estrogens, Conjugated CREAM 30 GM TUBE VG SCH (08:53)
[2017-06-10] MEDS: Metoprolol 100 MG TABLET PO SCH ×2 (08:53→21:28)
[2017-06-10] MEDS: Lidocaine OINT 35.44 GM TUBE TP PRN (08:53)
[2017-06-10] MEDS: ALPRAZolam 0.25 MG TABLET PO SCH ×2 (08:53→21:27)
--- NOTE | 2017-06-10 09:55 | Event Note ---
Date of Encounter: 06/10/17 Time of Encounter: 09:50 In review of pt record, it appears that she has a potentially curable cancer, and she is refusing further treatment based on the discomfort of her symptoms. In reviewing radiation oncology notes, they have made other recommendations, should the severity of her symptoms continue. Do not feel at this time that palliative consult is appropriate, - d/w Dr. Wheeler who agrees and will discuss with pt. Chemotherapy on hold at this time r/t JOSE, but I think that radiation oncology may need to have another discussion with her re: what they have to offer for the discomfort of radiation. Will hold off on consult at this time, - please call if needed.
[2017-06-10] MEDS: MetroNIDAZOLE Vaginal Gel VG SCH ×2 (10:56→21:27)
[2017-06-10] MEDS: Heparin 25,000 UNIT/500 ML D5W 25,000 UNIT/500 ML MLS IVC SCH (11:25)
[2017-06-10] MEDS: 0.9 % Sodium Chloride 1,000 ML IVC SCH (13:00)
--- NOTE | 2017-06-10 15:19 | Internal Med Progress Note ---
<Justina Valdez - Last Filed: 06/10/17 15:05> Date of Encounter: 06/10/17 Time of Encounter: 11:00 - Assessment and plan (1) Pulmonary embolism Current Visit: Yes Status: Acute Assessment and plan: -Patient presented with dyspnea, tachycardia and hypoxia. -CT and chest showed large right-sided pulmonary embolism involving all segmental branches on the right, left upper lobe arteries. -Echocardiogram revealed LVEF 50%, normal right ventricular size and function. Moderate tricuspid regurgitation. -Patient was on Xarelto for the last month for atrial fibrillation. -Appreciate oncology input. -Patient is stable, on room air. Denies dyspnea Plan: -continue heparin drip and warfarin until INR is therapeutic (2-3). INR is 1.7 Qualifiers: Pulmonary embolism type: other Chronicity: acute Acute cor pulmonale presence: without acute cor pulmonale Qualified Code(s): I26.99 - Other pulmonary embolism without acute cor pulmonale (2) Atrial fibrillation with rapid ventricular response Current Visit: Yes Status: Acute Assessment and plan: Controlled with metoprolol and xanax stable 88 Plan: continue to monitor with telemetry continue with metoprolol (3) JOSE (acute kidney injury) Current Visit: Yes Status: Acute Assessment and plan: Resolved Cr 0.98 Pre-renal due to over diuresis and post-obstructive due to urinary retention ( chronic bilateral stable UPJ obstruction). Renal U/S- shows moderate left hydronephrosis and mild right hydronephrosis. Urology input appreciated Plan -continue to monitor -avoid nephrotoxic agents -continue singleton catheter (4) Vulvar cancer Current Visit: Yes Status: Chronic Assessment and plan: Diagnosed in February 2017 Patient complains of dysuria that may be secondary to anaerobic overgrowth from radiation patient received radiation 06/05 and 06/06. receiving chemo and radiation for 5 weeks now. Plan will apply lidocaine gel and Flagyl to vulvar area- to see if this will help the dysuria Continue pain medications and xanax Radiation every day chemo is (5) Hypothyroidism Current Visit: Yes Status: Chronic Assessment and plan: Chronic hypothyroidism high TSH with normal free T4 Plan continue levothyroxine Qualifiers: Hypothyroidism type: unspecified Qualified Code(s): E03.9 - Hypothyroidism , unspecified - Subjective Interval history: Patient is laying in bed comfortably eating breakfast Her only complaint is that she has dysuria. According to her nurse she told her that she would no longer continue with radiation and chemo. She told Dr. Wheeler she would continue chemo and radiation that she wants treatment for her dysuria. She said she is going to discuss her wishes with her family today. - Constitutional Vitals: Temp Pulse Resp BP Pulse Ox 98 F 96 16 136/84 98 06/10/17 12:30 06/10/17 12:30 06/10/17 12:30 06/10/17 12:30 06/10/17 12:30 General appearance: Present: cooperative, A&O X 3, pleasant, no acute distress, answers questions appropriately Exam: Gen.: Vitals noted. No acute distress. AAOx3 HEENT: PERRL oropharynx clear, Normocephalic, atraumatic Neck: Supple. No adenopathy. Cardiac: RRR, no murmur, +S1/S2 Pulmonary: CTA bilaterally, no wheezes, rales or rhonchi, equal chest expansion Abdomen: soft, nontender, Bowel sounds noted, no guarding MSK: ROM intact, no joint swelling noted Extremities: no BLE edema, no cyanosis or clubbing Neuro: A&Ox3, moves all extremities, no focal deficits Psych: Appropriate mood and behavior Internal Medicine: Result - Labs CBC & Chem 7: 06/10/17 05:27 06/10/17 05:27 Labs: Short CBC 06/10/17 Range/Units 05:27 WBC 3.1 L (4.3-11.1) K/mcL Hgb 9.9 L (11.5-15.4) g/dL Hct 32.5 L (35.3-44.9) % Plt Count 72 L (140-400) K/mcL Neutrophils # 2.1 (1.6-8.9) K/mcL BMP 06/10/17 05:27 Sodium 137 Potassium 3.5 Chloride 104 Carbon Dioxide 28 BUN 17 Creatinine 0.98 Glucose 118 H Calcium 8.4 L - ABG Interpretation ABG results: PT/INR, D-dimer PT 18.1 Seconds (9.4-12.1) H 06/10/17 05:27 - Impressions Impressions Retroperitoneum Ultrasound 06/05/17 19:05 IMPRESSION: 1. Mild right hydronephrosis. Moderate left hydronephrosis. D/ / 06/06/2017 05:50:48 Leonidas Castañeda MD / chuy Interpreting Provider: Leonidas Castañeda MD Consult Discharge Plan - Plan Referrals: Ashley Wright, HUMAN PERFORMANCE TECHNOLOGIST [Primary Care Provider] - 06/17/17 1:00 pm () <Hudson Wheeler - Last Filed: 06/10/17 18:11> Date of Encounter: 06/10/17 - Constitutional Vitals: Temp Pulse Resp BP Pulse Ox 97.7 F 112 16 123/76 94 06/10/17 16:00 06/10/17 16:00 06/10/17 16:00 06/10/17 16:00 06/10/17 16:00 Internal Medicine: Result - Labs CBC & Chem 7: 06/10/17 05:27 06/10/17 05:27 Labs: Short CBC 06/10/17 Range/Units 05:27 WBC 3.1 L (4.3-11.1) K/mcL Hgb 9.9 L (11.5-15.4) g/dL Hct 32.5 L (35.3-44.9) % Plt Count 72 L (140-400) K/mcL Neutrophils # 2.1 (1.6-8.9) K/mcL BMP 06/10/17 05:27 Sodium 137 Potassium 3.5 Chloride 104 Carbon Dioxide 28 BUN 17 Creatinine 0.98 Glucose 118 H Calcium 8.4 L - ABG Interpretation ABG results: PT/INR, D-dimer PT 18.1 Seconds (9.4-12.1) H 06/10/17 05:27 - Impressions Impressions Retroperitoneum Ultrasound 06/05/17 19:05 IMPRESSION: 1. Mild right hydronephrosis. Moderate left hydronephrosis. D/ / 06/06/2017 05:50:48 Leonidas Castañeda MD / chuy Interpreting Provider: Leonidas Castañeda MD - Attending Attestation I examined this patient and my medical decision-making was reviewed with the Resident Physician. I agree with the documented findings, disposition and treatment plan as described except to the extent set forth below.
--- NOTE | 2017-06-10 16:03 | Event Note ---
Date of Encounter: 06/10/17 Time of Encounter: 16:02 Discussed patient with rad onc. Believe it would be best to leave catheter in at this time until completion of XRT. Call with questions.
[2017-06-10] MEDS ORDERED: Lidocaine Jelly 11 ml Syringe MM ONE (17:37)
[2017-06-10] MEDS ORDERED: *HR* Warfarin 5 MG TABLET PO ONE (18:00)
[2017-06-10] MEDS ORDERED: MetroNIDAZOLE Vaginal Gel VG SCH (21:00)
[2017-06-10] MEDS: Topiramate 25 MG TABLET PO SCH (21:27)
[2017-06-11] MEDS: Heparin 25,000 UNIT/500 ML D5W 25,000 UNIT/500 ML MLS IVC SCH (03:58)
[2017-06-11] MEDS: 0.9 % Sodium Chloride 1,000 ML IVC SCH (04:10)
[2017-06-11 06:15] LABS: Basophils % 0.3 %; Eosinophils % 0.9 %; Hemoglobin 9.9 g/dL (11.5-15.4); Immature Granulocytes % 1.2 % (0-4); Lymphocytes # 0.5 K/mcL (0.6-4.6); Lymphocytes % 16.5 %; Mean Corpuscular HGB Conc 30.9 g/dL (31.6-35.5); Mean Corpuscular Hemoglobin 27.6 pg (28.0-33.3); Mean Corpuscular Volume 89.1 fL (83.0-100.0); Mean Platelet Volume 10.1 fL (9.4-12.4); Monocytes # 0.5 K/mcL (0.0-1.3); Monocytes % 14.7 %; Neutrophils # 2.2 K/mcL (1.6-8.9); Platelet Count 74 K/mcL (140-400); Red Blood Count 3.59 M/mcL (3.82-4.97); Red Cell Distribution Width 16.9 % (11.5-14.5); Segmented Neutrophils % 66.4 %
[2017-06-11 06:21] LABS: INR 2.1; Prothrombin Time 23.4 Seconds (9.4-12.1)
[2017-06-11 06:28] LABS: BUN/Creatinine Ratio 17 (6-26); Blood Urea Nitrogen 16 mg/dL (7-20); Calcium 8.2 mg/dL (8.6-10.8); Carbon Dioxide 28 mEq/L (19-29); Chloride 107 mEq/L (98-109); Glucose 140 mg/dL (70-99); Osmolality,Calculated 291 (280-300); Potassium 3.3 mEq/L (3.5-4.5); Sodium 139 mEq/L (136-145); eGFR For African Americans > 60 (> 60); eGFR For Non-African Americans 59 (> 60)
[2017-06-11 06:31] LABS: Platelet Estimate Decreased (Normal)
[2017-06-11 06:32] LABS: Large Platelets Present (Not Present)
[2017-06-11 06:47] LABS: Activated Partial Thrombo Time 95.6 Seconds (26.0-36.0)
[2017-06-11] MEDS: Metoprolol 100 MG TABLET PO SCH ×2 (08:45→20:59)
[2017-06-11] MEDS: ALPRAZolam 0.25 MG TABLET PO SCH ×2 (08:45→21:00)
[2017-06-11] MEDS: MetroNIDAZOLE Vaginal Gel VG SCH ×2 (08:47→21:03)
[2017-06-11] MEDS: Estrogens, Conjugated CREAM 30 GM TUBE VG SCH (08:48)
--- NOTE | 2017-06-11 10:11 | Internal Med Progress Note ---
<Justina Valdez - Last Filed: 06/11/17 13:31> Date of Encounter: 06/11/17 Time of Encounter: 10:09 - Assessment and plan (1) Pulmonary embolism Current Visit: Yes Status: Acute Assessment and plan: 06/11/2017 -Patient is now at a therapeutic INR level 2.1 -D/C heparin -Patient is stable on room air, vitals stable -patient denies dyspnea and chest pain -continue coumadin -continue to closely monitor patient 06/10/2017 -Patient presented with dyspnea, tachycardia and hypoxia. -CT and chest showed large right-sided pulmonary embolism involving all segmental branches on the right, left upper lobe arteries. -Echocardiogram revealed LVEF 50%, normal right ventricular size and function. Moderate tricuspid regurgitation. -Patient was on Xarelto for the last month for atrial fibrillation. -Appreciate oncology input. -Patient is stable, on room air. Denies dyspnea Plan: -continue heparin drip and warfarin until INR is therapeutic (2-3). INR is 1.7 Qualifiers: Pulmonary embolism type: other Chronicity: acute Acute cor pulmonale presence: without acute cor pulmonale Qualified Code(s): I26.99 - Other pulmonary embolism without acute cor pulmonale (2) Atrial fibrillation with rapid ventricular response Current Visit: Yes Status: Acute Assessment and plan: Controlled with metoprolol and xanax stable 89 Plan: continue to monitor with telemetry continue with metoprolol (3) Vulvar cancer Current Visit: Yes Status: Chronic Assessment and plan: 06/11/2017 -Patient stated that the combination of metronidazole cream and lidocaine helped to relieve her dysuria -we will continue the combination creams -Patient stated "I don't want to continue radiation and chemo anymore" when asked her reasoning she said "I just don't". 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 receiving chemo and radiation for 5 weeks now. Plan will apply lidocaine gel and Flagyl to vulvar area- to see if this will help the dysuria Continue pain medications and xanax Radiation every day chemo is (4) JOSE (acute kidney injury) Current Visit: Yes Status: Acute Assessment and plan: Resolved Cr 0.93 Pre-renal due to over diuresis and post-obstructive due to urinary retention ( chronic bilateral stable UPJ obstruction). Renal U/S- shows moderate left hydronephrosis and mild right hydronephrosis. Urology input appreciated Plan -continue to monitor Creatinine -avoid nephrotoxic agents -continue singleton catheter (5) Hypothyroidism Current Visit: Yes Status: Chronic Assessment and plan: Chronic hypothyroidism high TSH with normal free T4 Plan continue levothyroxine Qualifiers: Hypothyroidism type: unspecified Qualified Code(s): E03.9 - Hypothyroidism , unspecified (6) DVT prophylaxis Current Visit: Yes Status: Acute Assessment and plan: patient is therapeutic on coumadin - Subjective Interval history: Patient is laying in bed comfortably sleeping -I woke her up she stated that she no longer has dysuria and that the metronidazole lidocaine helped she stated that she used less pain medication yesterday due to not having the vaginal pain. she is still refusing to continue with radiation and chemo- she states that her resisting is that she "just does not want to do anymore" When questioned about the reasoning to discontinue radiation chemo she would not give a specific reason. She has still not discussed her plan with her family due to them not visiting yet. - Constitutional Vitals: Temp Pulse Resp BP Pulse Ox 98.5 F 89 18 110/87 100 06/11/17 07:35 06/11/17 07:35 06/11/17 07:35 06/11/17 07:35 06/11/17 07:35 General appearance: Present: cooperative, A&O X 3, pleasant, no acute distress, answers questions appropriately Exam: Gen.: Vitals noted. No acute distress. AAOx3 HEENT: PERRL oropharynx clear, Normocephalic, atraumatic Neck: Supple. Trachea midline Cardiac: RRR, no murmur, +S1/S2 Pulmonary: CTA bilaterally, no wheezes, rales or rhonchi, equal chest expansion Abdomen: soft, nontender, Bowel sounds noted, no guarding MSK:, no joint swelling noted Extremities: 1+BLE edema, nontender calf, no cyanosis or clubbing Neuro: A&Ox3, moves all extremities, no focal deficits Psych: Appropriate mood and behavior Internal Medicine: Result - Labs CBC & Chem 7: 06/11/17 05:45 06/11/17 05:45 Labs: Short CBC 06/11/17 Range/Units 05:45 WBC 3.3 L (4.3-11.1) K/mcL Hgb 9.9 L (11.5-15.4) g/dL Hct 32.0 L (35.3-44.9) % Plt Count 74 L (140-400) K/mcL Neutrophils # 2.2 (1.6-8.9) K/mcL BMP 06/11/17 05:45 Sodium 139 Potassium 3.3 L Chloride 107 Carbon Dioxide 28 BUN 16 Creatinine 0.93 Glucose 140 H Calcium 8.2 L - ABG Interpretation ABG results: PT/INR, D-dimer PT 23.4 Seconds (9.4-12.1) H 06/11/17 05:45 Consult Discharge Plan - Plan Referrals: Ashley Wright CNP [Primary Care Provider] - 06/17/17 1:00 pm () <Hudson Wheeler - Last Filed: 06/11/17 18:43> Date of Encounter: 06/11/17 - Constitutional Vitals: Temp Pulse Resp BP Pulse Ox 98.4 F 96 18 90/68 99 06/11/17 16:27 06/11/17 16:27 06/11/17 16:27 06/11/17 16:27 06/11/17 16:27 Internal Medicine: Result - Labs CBC & Chem 7: 06/11/17 05:45 06/11/17 05:45 Labs: Short CBC 06/11/17 Range/Units 05:45 WBC 3.3 L (4.3-11.1) K/mcL Hgb 9.9 L (11.5-15.4) g/dL Hct 32.0 L (35.3-44.9) % Plt Count 74 L (140-400) K/mcL Neutrophils # 2.2 (1.6-8.9) K/mcL BMP 06/11/17 05:45 Sodium 139 Potassium 3.3 L Chloride 107 Carbon Dioxide 28 BUN 16 Creatinine 0.93 Glucose 140 H Calcium 8.2 L - ABG Interpretation ABG results: PT/INR, D-dimer PT 23.4 Seconds (9.4-12.1) H 06/11/17 05:45 - Attending Attestation I examined this patient and my medical decision-making was reviewed with the Resident Physician. I agree with the documented findings, disposition and treatment plan as described except to the extent set forth below. it seems Flagyl ointment worked for dysuria/Burning. will continue same.
--- NOTE | 2017-06-11 15:28 | On Treatment Visit ---
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 Has has 2 fxs of XRT since being admitted last week. Has refused to come to cancer center for treatment multiple times. Stable vulvar pain. Vital Signs: Last Vital Signs Temp 98.2 F 06/11/17 11:45 Pulse 86 06/11/17 11:45 Resp 18 06/11/17 11:45 BP 130/70 06/11/17 11:45 Pulse Ox 98 06/11/17 11:45 - Imaging Imaging completed: CBCT Image notes: The above images have been reviewed daily. The set up was reviewed. The dosimetry, dose delivery, and treatment parameters have been reviewed. - Assessment Assessment: Assessment: 72-year-old female with squamous cell carcinoma of the vulva, [id number] status post bilateral inguinal lymphadenectomy with wound dehiscence of the left groin and mild to moderate vulvar pain undergoing chemoradiotherapy, currently admitted for PE Plan: I had a long discussion today with Mirtha regarding further management of her vulvar cancer. She has voiced other caretakers that she wants to quit treatment. We discussed that her cancer remains quite curable. Options for management include continuation of radiotherapy (+/-chemo) with definitive/ curative intent , radical surgery when she has recovered from PE, or observation. 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 This is unchanged since starting radiotherapy. Local progression of her primary lesion will likely be much worse than her current symptoms should she discontinue treatment. I appreciate Dr. Mccartney's input regarding Bernal catheter. Following this discussion, she continued to be reluctant regarding continuation of radiotherapy. We discussed discontinuing concurrent chemotherapy and proceeding with radiation alone. This was most agreeable to her at this time point. She would like to speak with her family as well regarding her decision. I 've encouraged her to resume radiation treatments until she has had a chance to talk to her family as local control and cure is known to be significantly decreased with long treatment breaks. She was agreeable to come over to treatment today. This was discussed with Dr. Ly as well. Dwain Quintanilla MD Radiation Oncologist
[2017-06-11] MEDS ORDERED: *HR* Warfarin 5 MG TABLET PO ONE (18:00)
[2017-06-11] MEDS: *HR* OxyCODONE Immed Rel 5 MG TABLET PO PRN (19:24)
[2017-06-11] MEDS: Topiramate 25 MG TABLET PO SCH (21:00)
[2017-06-11] MEDS: *HR* HYDROmorphone (PF) 1 MG/ML SYRINGE IVP PRN (21:00)
[2017-06-11] MEDS: Lidocaine OINT 35.44 GM TUBE TP PRN (21:03)
[2017-06-12 04:31] LABS: Prothrombin Time 22.4 Seconds (9.4-12.1)
[2017-06-12 04:33] LABS: Basophils % 0.6 %; Eosinophils % 1.3 %; Hematocrit 32.1 % (35.3-44.9); Immature Granulocytes % 1.6 % (0-4); Lymphocytes # 0.5 K/mcL (0.6-4.6); Lymphocytes % 15.5 %; Mean Corpuscular HGB Conc 31.2 g/dL (31.6-35.5); Mean Corpuscular Hemoglobin 27.5 pg (28.0-33.3); Mean Corpuscular Volume 88.4 fL (83.0-100.0); Mean Platelet Volume 10.3 fL (9.4-12.4); Monocytes # 0.5 K/mcL (0.0-1.3); Monocytes % 14.8 %; Neutrophils # 2.1 K/mcL (1.6-8.9); Red Blood Count 3.63 M/mcL (3.82-4.97); Segmented Neutrophils % 66.2 %
[2017-06-12 04:34] LABS: Platelet Count 85 K/mcL (140-400)
[2017-06-12 04:52] LABS: BUN/Creatinine Ratio 22 (6-26); Blood Urea Nitrogen 18 mg/dL (7-20); Calcium 8.4 mg/dL (8.6-10.8); Carbon Dioxide 27 mEq/L (19-29); Chloride 110 mEq/L (98-109); Glucose 133 mg/dL (70-99); Osmolality,Calculated 296 (280-300); Potassium 3.3 mEq/L (3.5-4.5); Sodium 141 mEq/L (136-145); eGFR For African Americans > 60 (> 60); eGFR For Non-African Americans > 60 (> 60)
[2017-06-12 05:27] LABS: Anisocytosis 1+ (Not Present); Platelet Estimate Decreased (Normal)
[2017-06-12] MEDS: ALPRAZolam 0.25 MG TABLET PO SCH ×2 (08:06→21:59)
[2017-06-12] MEDS: Metoprolol 100 MG TABLET PO SCH ×2 (08:06→21:59)
--- NOTE | 2017-06-12 09:33 | Internal Med Progress Note ---
<Justina Valdez - Last Filed: 06/12/17 17:09> Date of Encounter: 06/12/17 Time of Encounter: 09:31 - Assessment and plan (1) Pulmonary embolism Current Visit: Yes Status: Acute Assessment and plan: -patient denies dyspnea and chest pain -Patient is now at a therapeutic INR level 2.1 -Patient is stable on room air, vitals stable -CT and chest showed large right-sided pulmonary embolism involving all segmental branches on the right, left upper lobe arteries. -Echocardiogram revealed LVEF 50%, normal right ventricular size and function. Moderate tricuspid regurgitation. -Patient was on Xarelto for the last month for atrial fibrillation. -Appreciate oncology input. plan -continue coumadin -continue to closely monitor patient Qualifiers: Pulmonary embolism type: other Chronicity: acute Acute cor pulmonale presence: without acute cor pulmonale Qualified Code(s): I26.99 - Other pulmonary embolism without acute cor pulmonale (2) Atrial fibrillation with rapid ventricular response Current Visit: Yes Status: Acute Assessment and plan: Controlled with metoprolol and xanax stable 88 Plan: continue to monitor with telemetry continue with metoprolol (3) Vulvar cancer Current Visit: Yes Status: Chronic Assessment and plan: 06/12/2017 -patient talked with oncology yesterday and she agreed to continue radiation treatment and discontinue chemo. It was explained to her that the vulvar cancer is curable with strict adherence to the treatment. -She is to begin radiation treatment -will continue to apply the metronidazole cream and lidocaine for her dysuria -oncology following-appreciated 06/11/2017 -Patient stated that the combination of metronidazole cream and lidocaine helped to relieve her dysuria -we will continue the combination creams -Patient stated "I don't want to continue radiation and chemo anymore" when asked her reasoning she said "I just don't". 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 receiving chemo and radiation for 5 weeks now. Plan will apply lidocaine gel and Flagyl to vulvar area- to see if this will help the dysuria Continue pain medications and xanax Radiation every day chemo is (4) JOSE (acute kidney injury) Current Visit: Yes Status: Acute Assessment and plan: Resolved Cr 0.83 Pre-renal due to over diuresis and post-obstructive due to urinary retention ( chronic bilateral stable UPJ obstruction). Renal U/S- shows moderate left hydronephrosis and mild right hydronephrosis. Urology input appreciated Plan -continue to monitor Creatinine -avoid nephrotoxic agents -continue singleton catheter (5) Hypothyroidism Current Visit: Yes Status: Chronic Assessment and plan: Chronic hypothyroidism high TSH with normal free T4 Plan continue levothyroxine Qualifiers: Hypothyroidism type: unspecified Qualified Code(s): E03.9 - Hypothyroidism , unspecified (6) DVT prophylaxis Current Visit: Yes Status: Acute Assessment and plan: patient is therapeutic on coumadin - Subjective Interval history: Patient is sitting up in her chair watching television and washing herself with a wash rag. she stated that she no longer has dysuria and that the metronidazole and lidocaine helped I spoke with her nurse and she will keep applying the combo creams. Oncology spoke with her yesterday and she agreed to continue with radiation therapy and to discontinue chemotherapy according to her nurse the incision in her groin has been draining more clear fluid since yesterday- it is non-erythematous or exudative - Constitutional Vitals: Temp Pulse Resp BP Pulse Ox 98.0 F 80 16 120/79 97 06/12/17 08:15 06/12/17 08:15 06/12/17 08:15 06/12/17 08:15 06/12/17 08:15 General appearance: Present: cooperative, A&O X 3, pleasant, no acute distress, answers questions appropriately Exam: Gen.: Vitals noted. No acute distress. AAOx3 HEENT: PERRL, oropharynx clear, Normocephalic, atraumatic Neck: Supple. No adenopathy. Cardiac: irregular, no murmur, +S1/S2 no rubs Pulmonary: CTA bilaterally, no wheezes, rales or rhonchi, equal chest expansion Abdomen: soft, nontender, Bowel sounds noted, no guarding Extremities: BLE edema, nontender calf, no cyanosis or clubbing Neuro: A&Ox3, moves all extremities, no focal deficits Psych: Appropriate mood and behavior Internal Medicine: Result - Labs CBC & Chem 7: 06/12/17 03:49 06/12/17 03:49 Labs: Short CBC 06/12/17 Range/Units 03:49 WBC 3.2 L (4.3-11.1) K/mcL Hgb 10.0 L (11.5-15.4) g/dL Hct 32.1 L (35.3-44.9) % Plt Count 85 L (140-400) K/mcL Neutrophils # 2.1 (1.6-8.9) K/mcL BMP 06/12/17 03:49 Sodium 141 Potassium 3.3 L Chloride 110 H Carbon Dioxide 27 BUN 18 Creatinine 0.83 Glucose 133 H Calcium 8.4 L - ABG Interpretation ABG results: PT/INR, D-dimer PT 22.4 Seconds (9.4-12.1) H 06/12/17 03:49 Consult Discharge Plan - Plan Referrals: Ashley Wright REWEAVER [Primary Care Provider] - 06/17/17 1:00 pm () <Hudson Wheeler P - Last Filed: 06/12/17 18:28> Date of Encounter: 06/12/17 - Constitutional Vitals: Temp Pulse Resp BP Pulse Ox 99.0 F 88 22 119/79 96 06/12/17 16:21 06/12/17 16:21 06/12/17 16:21 06/12/17 16:21 06/12/17 16:21 Internal Medicine: Result - Labs CBC & Chem 7: 06/12/17 03:49 06/12/17 03:49 Labs: Short CBC 06/12/17 Range/Units 03:49 WBC 3.2 L (4.3-11.1) K/mcL Hgb 10.0 L (11.5-15.4) g/dL Hct 32.1 L (35.3-44.9) % Plt Count 85 L (140-400) K/mcL Neutrophils # 2.1 (1.6-8.9) K/mcL BMP 06/12/17 03:49 Sodium 141 Potassium 3.3 L Chloride 110 H Carbon Dioxide 27 BUN 18 Creatinine 0.83 Glucose 133 H Calcium 8.4 L - ABG Interpretation ABG results: PT/INR, D-dimer PT 22.4 Seconds (9.4-12.1) H 06/12/17 03:49 - Attending Attestation I examined this patient and my medical decision-making was reviewed with the Resident Physician. I agree with the documented findings, disposition and treatment plan as described except to the extent set forth below. patient decided to continue with RT/Chemo will update Rad Onc tomorrow
[2017-06-12] MEDS: Estrogens, Conjugated CREAM 30 GM TUBE VG SCH (11:11)
[2017-06-12] MEDS: MetroNIDAZOLE Vaginal Gel VG SCH ×2 (11:11→21:59)
[2017-06-12] MEDS: *HR* HYDROmorphone (PF) 1 MG/ML SYRINGE IVP PRN ×2 (17:30→21:49)
[2017-06-12] MEDS ORDERED: *HR* Warfarin 7.5 MG TABLET PO ONE (18:00)
[2017-06-12] MEDS: Topiramate 25 MG TABLET PO SCH (21:59)
[2017-06-13 04:16] LABS: Basophils % 0.6 %; Hemoglobin 9.3 g/dL (11.5-15.4)
[2017-06-13 04:18] LABS: Eosinophils # 0.1 K/mcL (0.0-0.6); Eosinophils % 1.6 %; Hematocrit 30.6 % (35.3-44.9); Immature Granulocytes % 2.5 % (0-4); Immature Platelets 3.8 % (1.1-6.1); Lymphocytes # 0.6 K/mcL (0.6-4.6); Lymphocytes % 20.1 %; Mean Corpuscular HGB Conc 30.4 g/dL (31.6-35.5); Mean Corpuscular Hemoglobin 27.3 pg (28.0-33.3); Mean Corpuscular Volume 89.7 fL (83.0-100.0); Mean Platelet Volume 10.7 fL (9.4-12.4); Monocytes # 0.5 K/mcL (0.0-1.3); Monocytes % 15.7 %; Neutrophils # 1.9 K/mcL (1.6-8.9); Red Blood Count 3.41 M/mcL (3.82-4.97); Red Cell Distribution Width 17.3 % (11.5-14.5); Segmented Neutrophils % 59.5 %
[2017-06-13 04:26] LABS: INR 2.6; Prothrombin Time 28.8 Seconds (9.4-12.1)
[2017-06-13 04:40] LABS: BUN/Creatinine Ratio 18 (6-26); Blood Urea Nitrogen 16 mg/dL (7-20); Calcium 8.3 mg/dL (8.6-10.8); Carbon Dioxide 26 mEq/L (19-29); Chloride 110 mEq/L (98-109); Glucose 131 mg/dL (70-99); Osmolality,Calculated 295 (280-300); Potassium 3.5 mEq/L (3.5-4.5); Sodium 141 mEq/L (136-145); eGFR For African Americans > 60 (> 60); eGFR For Non-African Americans > 60 (> 60)
[2017-06-13 05:09] LABS: Platelet Count 90 K/mcL (140-400)
[2017-06-13 05:11] LABS: Anisocytosis 1+ (Not Present); Microcytosis Present (Not Present); Platelet Estimate Decreased (Normal); Poikilocytosis 1+ (Not Present)
[2017-06-13] MEDS: *HR* HYDROmorphone (PF) 1 MG/ML SYRINGE IVP PRN ×3 (05:37→21:20)
[2017-06-13] MEDS: ALPRAZolam 0.25 MG TABLET PO SCH ×2 (09:08→21:17)
[2017-06-13] MEDS: Metoprolol 100 MG TABLET PO SCH ×2 (09:08→21:17)
--- NOTE | 2017-06-13 09:50 | Internal Med Progress Note ---
Addendum entered and electronically signed by Justina Valdez DO 06/13/17 11:19: I spoke with oncology and the patient is to follow up with Dr. Martinez or Dr. Quintanilla 3-4 days after discharge. The community health education coordinator is to call incident that appointments for the patient upon discharge. They are agreeable to have patient received radiation treatment today and discharge tomorrow as long as she is medically stable. Original Note: <Justina Valdez - Last Filed: 06/13/17 09:48> Date of Encounter: 06/13/17 Time of Encounter: 09:48 - Assessment and plan (1) Pulmonary embolism Current Visit: Yes Status: Acute Assessment and plan: -patient denies dyspnea and chest pain -Patient is now at a therapeutic INR level 2.6 -Patient is stable on room air, vitals stable -CT and chest showed large right-sided pulmonary embolism involving all segmental branches on the right, left upper lobe arteries. -Echocardiogram revealed LVEF 50%, normal right ventricular size and function. Moderate tricuspid regurgitation. -Patient was on Xarelto for the last month for atrial fibrillation. -Appreciate oncology input. plan -continue coumadin -continue to closely monitor patient Qualifiers: Pulmonary embolism type: other Chronicity: acute Acute cor pulmonale presence: without acute cor pulmonale Qualified Code(s): I26.99 - Other pulmonary embolism without acute cor pulmonale (2) Vulvar cancer Current Visit: Yes Status: Chronic Assessment and plan: 06/13/2017 -patient is agreeable to go to radiation treatment today at the cancer center -will continue to apply the metronidazole cream and lidocaine for her dysuria 06/12/2017 -patient talked with oncology yesterday and she agreed to continue radiation treatment and discontinue chemo. It was explained to her that the vulvar cancer is curable with strict adherence to the treatment. -She is to begin radiation treatment -will continue to apply the metronidazole cream and lidocaine for her dysuria -oncology following-appreciated 06/11/2017 -Patient stated that the combination of metronidazole cream and lidocaine helped to relieve her dysuria -we will continue the combination creams -Patient stated "I don't want to continue radiation and chemo anymore" when asked her reasoning she said "I just don't". 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 receiving chemo and radiation for 5 weeks now. Plan will apply lidocaine gel and Flagyl to vulvar area- to see if this will help the dysuria Continue pain medications and xanax Radiation every day chemo is (3) Atrial fibrillation with rapid ventricular response Current Visit: Yes Status: Acute Assessment and plan: Controlled with metoprolol and xanax stable 88 Plan: continue to monitor with telemetry continue with metoprolol (4) JOSE (acute kidney injury) Current Visit: Yes Status: Acute Assessment and plan: Resolved Cr 0.9 I/O: 140/350 Pre-renal due to over diuresis and post-obstructive due to urinary retention ( chronic bilateral stable UPJ obstruction). Renal U/S- shows moderate left hydronephrosis and mild right hydronephrosis. Urology input appreciated Plan -continue to monitor Creatinine -continue to monitor I/O -avoid nephrotoxic agents -continue singleton catheter (5) Hypothyroidism Current Visit: Yes Status: Chronic Assessment and plan: Chronic hypothyroidism high TSH with normal free T4 Plan continue levothyroxine Qualifiers: Hypothyroidism type: unspecified Qualified Code(s): E03.9 - Hypothyroidism , unspecified (6) DVT prophylaxis Current Visit: Yes Status: Acute Assessment and plan: patient is therapeutic on coumadin - Subjective Interval history: Patient is laying in bed watching television. she stated that she no longer has dysuria and that the metronidazole and lidocaine helped She is agreeable to go for radiation therapy today. She has no complaints today. - Constitutional Vitals: Temp Pulse Resp BP Pulse Ox 97.8 F 88 17 116/81 97 06/13/17 07:32 06/13/17 07:32 06/13/17 07:32 06/13/17 07:32 06/13/17 07:32 General appearance: Present: cooperative, A&O X 3, pleasant, no acute distress, answers questions appropriately Exam: Gen.: Vitals noted. No acute distress. AAOx3 HEENT: PERRL oropharynx clear, Normocephalic, atraumatic Neck: Supple. Trachea midline Cardiac: irregular, no murmur, +S1/S2, no rubs Pulmonary: CTA bilaterally, no wheezes, rales or rhonchi, equal chest expansion Abdomen: soft, nontender, Bowel sounds noted, no guarding Back: Nontender throughout. MSK: no joint swelling noted Extremities: +1BLE edema, nontender calf, no cyanosis or clubbing Neuro: A&Ox3, moves all extremities, no focal deficits Psych: Appropriate mood and behavior Internal Medicine: Result - Labs CBC & Chem 7: 06/13/17 03:30 06/13/17 03:30 Labs: Short CBC 06/13/17 Range/Units 03:30 WBC 3.2 L (4.3-11.1) K/mcL Hgb 9.3 L (11.5-15.4) g/dL Hct 30.6 L (35.3-44.9) % Plt Count 90 L (140-400) K/mcL Neutrophils # 1.9 (1.6-8.9) K/mcL BMP 06/13/17 03:30 Sodium 141 Potassium 3.5 Chloride 110 H Carbon Dioxide 26 BUN 16 Creatinine 0.90 Glucose 131 H Calcium 8.3 L - ABG Interpretation ABG results: PT/INR, D-dimer PT 28.8 Seconds (9.4-12.1) H 06/13/17 03:30 Consult Discharge Plan - Plan Referrals: Ashley Wright, [facility] [Primary Care Provider] - 06/17/17 1:00 pm () <Hudson Wheeler - Last Filed: 06/13/17 17:26> Date of Encounter: 06/13/17 - Constitutional Vitals: Temp Pulse Resp BP Pulse Ox 98.6 F 98 18 98/66 95 06/13/17 16:52 06/13/17 16:52 06/13/17 16:52 06/13/17 16:52 06/13/17 11:48 Internal Medicine: Result - Labs CBC & Chem 7: 06/13/17 03:30 06/13/17 03:30 Labs: Short CBC 06/13/17 Range/Units 03:30 WBC 3.2 L (4.3-11.1) K/mcL Hgb 9.3 L (11.5-15.4) g/dL Hct 30.6 L (35.3-44.9) % Plt Count 90 L (140-400) K/mcL Neutrophils # 1.9 (1.6-8.9) K/mcL BMP 06/13/17 03:30 Sodium 141 Potassium 3.5 Chloride 110 H Carbon Dioxide 26 BUN 16 Creatinine 0.90 Glucose 131 H Calcium 8.3 L - ABG Interpretation ABG results: PT/INR, D-dimer PT 28.8 Seconds (9.4-12.1) H 06/13/17 03:30 - Attending Attestation I examined this patient and my medical decision-making was reviewed with the Resident Physician. I agree with the documented findings, disposition and treatment plan as described except to the extent set forth below.
[2017-06-13] MEDS: *HR* OxyCODONE Immed Rel 5 MG TABLET PO PRN (10:28)
[2017-06-13] MEDS: Estrogens, Conjugated CREAM 30 GM TUBE VG SCH (15:33)
[2017-06-13] MEDS: MetroNIDAZOLE Vaginal Gel VG SCH ×2 (15:33→21:18)
[2017-06-13] MEDS ORDERED: *HR* Warfarin 2.5 MG TABLET PO ONE (18:00)
[2017-06-13] MEDS: Topiramate 25 MG TABLET PO SCH (21:18)
[2017-06-14] MEDS: *HR* HYDROmorphone (PF) 1 MG/ML SYRINGE IVP PRN ×2 (04:14→12:55)
[2017-06-14 07:16] LABS: INR 2.8; Prothrombin Time 30.6 Seconds (9.4-12.1)
[2017-06-14 07:17] LABS: Hematocrit 32.4 % (35.3-44.9); Hemoglobin 9.7 g/dL (11.5-15.4); Lymphocytes # 0.7 K/mcL (0.6-4.6); Mean Corpuscular HGB Conc 29.9 g/dL (31.6-35.5); Mean Corpuscular Hemoglobin 27.2 pg (28.0-33.3); Platelet Count 105 K/mcL (140-400); Red Blood Count 3.56 M/mcL (3.82-4.97); Red Cell Distribution Width 17.3 % (11.5-14.5)
[2017-06-14 07:39] LABS: BUN/Creatinine Ratio 18 (6-26); Blood Urea Nitrogen 16 mg/dL (7-20); Calcium 8.4 mg/dL (8.6-10.8); Carbon Dioxide 27 mEq/L (19-29); Chloride 110 mEq/L (98-109); Glucose 105 mg/dL (70-99); Osmolality,Calculated 296 (280-300); Potassium 3.6 mEq/L (3.5-4.5); Sodium 142 mEq/L (136-145); eGFR For African Americans > 60 (> 60); eGFR For Non-African Americans > 60 (> 60)
[2017-06-14 08:01] LABS: Monocytes # 0.1 K/mcL (0.0-1.3); Neutrophils # 2.9 K/mcL (1.6-8.9)
[2017-06-14 08:02] LABS: Anisocytosis 1+ (Not Present); Microcytosis Present (Not Present); Platelet Estimate Decreased (Normal)
[2017-06-14] MEDS: Metoprolol 100 MG TABLET PO SCH (09:32)
[2017-06-14] MEDS: Estrogens, Conjugated CREAM 30 GM TUBE VG SCH (09:48)
[2017-06-14] MEDS: ALPRAZolam 0.25 MG TABLET PO SCH (09:48)
[2017-06-14] MEDS: MetroNIDAZOLE Vaginal Gel VG SCH (09:48)
--- NOTE | 2017-06-14 10:17 | Discharge Summary ---
Date of Encounter: 06/14/17 Time of Encounter: 10:15 - Discharge Diagnosis (1) Pulmonary embolism Priority: Primary Status: Acute Qualifiers: Pulmonary embolism type: other Chronicity: acute Acute cor pulmonale presence: without acute cor pulmonale Qualified Code(s): I26.99 - Other pulmonary embolism without acute cor pulmonale (2) Atrial fibrillation with rapid ventricular response Priority: Primary Status: Acute (3) JOSE (acute kidney injury) Priority: Primary Status: Acute (4) Vulvar cancer Priority: Secondary Status: Chronic (5) Hypothyroidism Priority: Secondary Status: Chronic Qualifiers: Hypothyroidism type: unspecified Qualified Code(s): E03.9 - Hypothyroidism , unspecified (6) DVT prophylaxis Priority: Secondary Status: Acute - Discharge Medications Prescriptions: OxyCODONE Immed Rel [Roxicodone 5 MG] 10 mg PO Q6HR PRN #7 tab PRN Reason: Moderate Pain (4-6) ALPRAZolam [Xanax 0.25 MG Tablet] 0.25 mg PO BID #7 tab Metoprolol [Lopressor] 100 mg PO BID #60 tab metroNIDAZOLE [VANDAZOLE 0.75% Vag Gel] 1 appl VG BID #7 Omeprazole [PriLOSEC] 20 mg PO DAILY@0630 #30 Warfarin [Coumadin] 2.5 mg PO 1800 #30 tablet Home Medications: Levothyroxine [Synthroid] 150 mcg PO QAM 04/25/17 [History] Topiramate [Topamax] 25 mg PO HS 04/25/17 [History] Ondansetron [Zofran] 4 mg PO Q8HR PRN #90 tablet 05/02/17 [Rx] Prochlorperazine Maleate [Compazine] 10 mg PO Q8HR PRN #90 tablet 05/02/17 [Rx] Dibucaine [Nupercainal] 56.7 gm RC Q3-4H PRN #1 oint...g. 05/21/17 [Rx] ALPRAZolam [Xanax 0.25 MG Tablet] 0.25 mg PO BID #7 tab 06/14/17 [Rx] Metoprolol [Lopressor] 100 mg PO BID #60 tab 06/14/17 [Rx] Omeprazole [PriLOSEC] 20 mg PO DAILY@0630 #30 06/14/17 [Rx] OxyCODONE Immed Rel [Roxicodone 5 MG] 10 mg PO Q6HR PRN #7 tab 06/14/17 [Rx] Warfarin [Coumadin] 2.5 mg PO 1800 #30 tablet 06/14/17 [Rx] metroNIDAZOLE [VANDAZOLE 0.75% Vag Gel] 1 appl VG BID #7 06/14/17 [Rx] Allergies/Adverse Reactions: Allergies No Known Allergies Allergy (Verified 04/25/17 13:55) Date of admission: 06/02/17 15:20 Primary care physician: Ashley Wright, Consults: 06/02/17 17:31 Consult to Oncology [CONS] Routine Consulting Provider: [facility] Reason for Consult: Vulval cancer on chemoradiation, PE on Xarelto Call Completed: Yes 06/04/17 11:04 Consult to Commercial Teller [CONS] Routine Reason for SW Consult: d/c planning 06/04/17 14:36 Consult to Occupational Therapy [CONS] Routine Comment: Evaluate, develop and implement POC Reason for Consult: EVAL AND TREAT Consult to Physical Therapy [CONS] Routine Comment: Evaluate, develop and implement POC Reason for Consult: EVAL AND TREAT 06/04/17 14:38 Consult to Wound Care [CONS] Routine Reason for Consult: WOUND TO LEFT GROIN FROM PREVIOUS LYMPTH NODE REMOVAL. Time Notified: 14:39 Call Completed: Yes 06/06/17 13:39 Consult to Urology [CONS] Routine Consulting Provider: Urology [facility] Reason for Consult: moderate left hydronephrosis Call Completed: Yes 06/10/17 08:04 Consult to Palliative Care [CONS] Routine Comment: Consulting Provider: Palliative Care Kathrine Reason for Consult: Current cancer patient refusing chemo and radiation Call Completed: Yes Discharging clinician: Hudson Wheeler - Patient Status Disposition: Transfer Inpatient Rehab Fac Condition: Good Functional capacity at discharge: independent ambulation Overall status at discharge: patient is progressing back to baseline - Discharge Instructions Follow Up With: Ashley Wright CNP [Primary Care Provider] - 06/17/17 1:00 pm () - Diet and Activity Activity: increase activity as tolerated Diet: low fat, low cholesterol, low salt diet Interval History: Ms. Holt is a 72 year old female with history of HIV fibrillation, vulvar cancer currently on chemoradiation, presents with complaints of sudden onset of chest tightness. Patient reports being in her usual state of health until this morning and was on her way for her first session of radiation when she developed sudden onset of chest tightness associated with shortness of breath and difficulty in taking a deep breath and some dizziness. No similar previous episodes. She reports no palpitations, syncope, nausea or vomiting. No fever, chills, productive cough. She recently underwent surgery for pelvic lymph node dissection and subsequently developed leg swelling, that is currently not any worse. Hospital course: Patient was hospitalized. CT angiogram was done. That showed large pulmonary embolism. Patient was started on heparin drip. Patient was switched to warfarin. Noted that patient has a atrial fibrillation with rapid ventricular rate. Patient needed intravenous heparin to begin with followed by bridging with Coumadin. Patient is scheduled for radiation therapy. Patient is following up with hematology oncology. Patient has vulvar cancer and she is following with oncology for [facility] radiation. plan accepted to [facility] for therapy. She can go to [facility] today. We will give her pain medication/warfarin/anxiolytics in a prescription. Followed PCP in 1-2 weeks. Follow-up with oncology in next 1-2 weeks - Time Spent with Patient Total time spent providing and/or coordinating discharge services: - Constitutional Vitals: Temp Pulse Resp BP Pulse Ox 97.8 F 87 15 96/62 99 06/14/17 07:35 06/14/17 07:35 06/14/17 07:35 06/14/17 07:35 06/14/17 09:57 General appearance: Present: cooperative, A&O X 3, pleasant, no acute distress, answers questions appropriately - Head Head exam: Present: atraumatic, normocephalic - Eye Eye exam: Present: PERRL, conjuntiva pink, sclera anicteric Pupils: Present: PERRL - Neck Neck exam general surgery: Present: supple, trachea midline. Absent: lymphadenopathy - Respiratory Respiratory exam: Present: CTAB. Absent: accessory muscle use, rales, rhonchi, wheezes - Cardiovascular Cardiovascular exam: Present: RRR, +S1, +S2. Absent: diastolic murmur, gallop, rubs, systolic murmur - GI/Abdominal GI/Abdominal exam: Present: normal bowel sounds, soft, no peritoneal signs. Absent: distended, tenderness - Extremities Exam Extremities exam: Present: warm, radial pulses palpable and symetrical. Absent : calf tenderness, cyanotic, pedal edema - Neurological Exam Neurological exam: Present: CN II-XII intact, oriented X3, no focal deficits. Absent: pronater drift, facial droop, speech deficit - Skin Skin exam: Present: dry, intact
--- NOTE | 2017-06-14 10:30 | Physician Discharge Referral ---
ExtendedCare Referral Info Transfer To: F/SNF - Diagnosis (1) Pulmonary embolism Priority: Primary Status: Acute (2) Atrial fibrillation with rapid ventricular response Priority: Primary Status: Acute (3) JOSE (acute kidney injury) Priority: Primary Status: Acute (4) Vulvar cancer Priority: Secondary Status: Chronic (5) Hypothyroidism Priority: Secondary Status: Chronic (6) DVT prophylaxis Priority: Secondary Status: Acute - Transfer Medications Prescriptions: OxyCODONE Immed Rel [Roxicodone 5 MG] 10 mg PO Q6HR PRN #7 tab PRN Reason: Moderate Pain (4-6) ALPRAZolam [Xanax 0.25 MG Tablet] 0.25 mg PO BID #7 tab Metoprolol [Lopressor] 100 mg PO BID #60 tab metroNIDAZOLE [VANDAZOLE 0.75% Vag Gel] 1 appl VG BID #7 Omeprazole [PriLOSEC] 20 mg PO DAILY@0630 #30 Warfarin [Coumadin] 2.5 mg PO 1800 #30 tablet Home Medications: Levothyroxine [Synthroid] 150 mcg PO QAM 04/25/17 [History] Topiramate [Topamax] 25 mg PO HS 04/25/17 [History] Ondansetron [Zofran] 4 mg PO Q8HR PRN #90 tablet 05/02/17 [Rx] Prochlorperazine Maleate [Compazine] 10 mg PO Q8HR PRN #90 tablet 05/02/17 [Rx] Dibucaine [Nupercainal] 56.7 gm RC Q3-4H PRN #1 oint...g. 05/21/17 [Rx] ALPRAZolam [Xanax 0.25 MG Tablet] 0.25 mg PO BID #7 tab 06/14/17 [Rx] Metoprolol [Lopressor] 100 mg PO BID #60 tab 06/14/17 [Rx] Omeprazole [PriLOSEC] 20 mg PO DAILY@0630 #30 06/14/17 [Rx] OxyCODONE Immed Rel [Roxicodone 5 MG] 10 mg PO Q6HR PRN #7 tab 06/14/17 [Rx] Warfarin [Coumadin] 2.5 mg PO 1800 #30 tablet 06/14/17 [Rx] metroNIDAZOLE [VANDAZOLE 0.75% Vag Gel] 1 appl VG BID #7 06/14/17 [Rx] Allergies/Adverse Reactions: Allergies No Known Allergies Allergy (Verified 04/25/17 13:55) - Respiratory Orders Smoking Cessation: Smoking cessation has been advised. For more information, call the [place] Tobacco Quit Line at 3-522-FCZM-NOW. - Mobility Orders Ambulate - Rehabiliation Orders Rehab Orders: ROM Exercises, Evaluation for Physical Therapy, Evaluation for Occupational Therapy CERTIFICATION: I certify that the transfer of the above named patient to an Extended Care Facility is necessary for the continuing treatment of the diagnosis listed. The above information is true and accurate reflection of patient's current condition. Confidential - Redisclosure prohibited without a patient's written consent.
[2017-06-14 11:14] VITALS: BP 102/72
== END 2017-06-14 13:40 | DRG 754 ==
LOC: 2NNU 15:20 → SUATTDRO 15:20 → 2ANU 06-12 13:30
PROVIDERS: ADMIT Internal Medicine; ATTEND Internal Medicine

== ENCOUNTER 2017-06-16 16:07 | Observation (INO) ==
[2017-06-16 18:42] LABS: Basophils % 0.6 %; Eosinophils # 0.1 K/mcL (0.0-0.6); Eosinophils % 1.2 %; Hematocrit 37.4 % (35.3-44.9); Immature Granulocytes % 3.9 % (0-4); Lymphocytes # 1.2 K/mcL (0.6-4.6); Lymphocytes % 23.2 %; Mean Corpuscular HGB Conc 30.2 g/dL (31.6-35.5); Mean Corpuscular Hemoglobin 27.3 pg (28.0-33.3); Mean Corpuscular Volume 90.3 fL (83.0-100.0); Mean Platelet Volume 9.5 fL (9.4-12.4); Monocytes # 0.6 K/mcL (0.0-1.3); Monocytes % 11.4 %; Platelet Count 182 K/mcL (140-400); Red Blood Count 4.14 M/mcL (3.82-4.97); Red Cell Distribution Width 17.9 % (11.5-14.5); Segmented Neutrophils % 59.7 %
[2017-06-16 18:51] LABS: Hemoglobin 11.3 g/dL (11.5-15.4)
[2017-06-16 18:53] LABS: Bilirubin,Urine Small (Negative); Blood,Urine Negative (Negative); Clarity,Urine Turbid (Clear); Color,Urine Red (Yellow); Glucose,Urine (UA) 100 mg/dL (Normal); Ketones,Urine Trace mg/dL (Negative); Leukocyte Esterase,Urine Moderate (Negative); Nitrite,Urine Positive (Negative); PH,Urine 8.5 pH Units (5.0-8.0); Protein,Urine >=1000 mg/dL (Neg-Trace); Specific Gravity,Urine 1.025 (1.010-1.025); Urobilinogen,Urine Normal (Normal)
[2017-06-16 18:55] LABS: Calcium 8.9 mg/dL (8.6-10.8); Potassium 4.2 mEq/L (3.5-4.5)
[2017-06-16 18:56] LABS: Bacteria,Urine Many per hpf (None-Few); Squamous Epithelial Cell,Urine Many per lpf (None-Few); WBC,Urine 50-100 per hpf (0-3)
[2017-06-16 19:17] LABS: Amorphous Sediment,Urine Few (Few); Calcium Oxalate Crystals,Urine Present; RBC,Urine 0-3 per hpf (0-3); Triple Phosphate Crystal,Urine Present
[2017-06-16 19:22] LABS: Anisocytosis 1+ (Not Present); Platelet Estimate Normal (Normal); Polychromasia 1+ (Not Present)
--- NOTE | 2017-06-16 20:10 | Emergency Department Note ---
Disposition Clinical Impression: Urinary catheter complication Qualifiers: Encounter type: initial encounter Qualified Code(s): T83.9XXA - Unspecified complication of genitourinary prosthetic device, implant and graft, initial encounter Urinary tract infection Qualifiers: Urinary tract infection type: site unspecified Hematuria presence: without hematuria Qualified Code(s): N39.0 - Urinary tract infection, site not specified Disposition: Admitted As Inpatient Condition: Good Referrals: Ashley Wright CNP [Primary Care Provider] - Forms: ED Satisfaction Letter General Adult HPI - General Chief complaint: ED Urogenital-Female Stated complaint: catheter pain, needs it to changed Time Seen by Provider: 06/16/17 16:51 Source: patient Limitations: no limitations Nursing Notes Reviewed: Yes Vital Signs Reviewed: Yes - History of Present Illness HPI Narrative: Patient with history of cancer and is undergoing radiation therapy. Patient sent over from radiation therapy for further evaluation after the catheter was leaking urine and had significant smell. Purple urine in bag. A call was placed to radiation oncology where the case was discussed and it was initially told to set the patient was contaminated with radiation and needed to be handled appropriately. This was of concern because the hospital waiting list for the patient stayed with EMS in a cart in the hallway for some time. Staff was significantly exposed due to the nondisplaced closure of this by the radiation oncologist. This was brought up with the charge nurse and multiple calls were made to the radiation team. It was later clarified that this type of radiation there was no radiation contamination or exposure. Urinalysis and blood work was checked. Patient has significant UTI. Patient will need to be admitted for antibiotics as well as catheter placement. The initial catheter was placed surgically by the urology team. Pain Scale: 10 - Related Data Home Medications Medication Instructions Recorded Confirmed Levothyroxine [Synthroid] 150 mcg PO QAM 04/25/17 06/02/17 Topiramate [Topamax] 25 mg PO HS 04/25/17 06/02/17 Previous Rx's Medication Instructions Recorded Ondansetron [Zofran] 4 mg PO Q8HR PRN #90 tablet 05/02/17 Prochlorperazine Maleate 10 mg PO Q8HR PRN #90 tablet 05/02/17 [Compazine] Dibucaine [Nupercainal] 56.7 gm RC Q3-4H PRN #1 oint...g. 05/21/17 ALPRAZolam [Xanax 0.25 MG Tablet] 0.25 mg PO BID #7 tab 06/14/17 Metoprolol [Lopressor] 100 mg PO BID #60 tab 06/14/17 Omeprazole [PriLOSEC] 20 mg PO DAILY@0630 #30 06/14/17 Warfarin [Coumadin] 2.5 mg PO 1800 #30 tablet 06/14/17 metroNIDAZOLE [VANDAZOLE 0.75% Vag 1 appl VG BID #7 06/14/17 Gel] OxyCODONE Immed Rel [Roxicodone 5 10 mg PO Q6HR PRN #8 tab 06/16/17 MG] Allergies Allergy/AdvReac Type Severity Reaction Status Date / Time No Known Allergies Allergy Verified 04/25/17 13:55 All systems ED: reviewed and negative except as stated. Constitutional: Denies: fever, chills Cardiovascular: Denies: chest pain, palpitations Respiratory: Denies: cough Gastrointestinal: Reports: abdominal pain Genitourinary: Reports: other (Catheter leaking) Musculoskeletal: Denies: back pain Integumentary: Denies: rash Endocrine: Denies: fatigue Past Medical History - Past Medical History Medical history: Reports: atrial fibrillation, cancer, hypertension, thyroid disease Surgical history: Reports: hysterectomy, knee replacement (Bilateral), orthopedic, other (Right heel surgery) Psychiatric history: Reports: anxiety - Social History Smoking Status: Never smoker Smokeless Tobacco Status: No Alcohol use: Reports: none Drug use: Reports: none Physical Exam General appearance: NAD, conversant Eyes: anicteric sclerae, moist conjunctivae; no lid-lag; PERRL HENT: Atraumatic; oropharynx clear with moist mucous membranes Neck: Normal appearance; Trachea midline Chest: Symmetrical chest rise; No respiratory distress Extremities: No peripheral edema or extremity tenderness : With significant swelling of the vulvar region with what appears to be catheter in place. Urine leaking around the catheter and contaminating her inguinal region. No skin breakdown identified. Skin: Normal temperature, turgor and texture; no rash, ulcers or subcutaneous nodules Psych: Appropriate mood and affect Neuro: Awake and alert - General Limitations: no limitations General appearance: alert Course - Consultations Consultation #1: Discussed with hospitalist Chester. Accepts admission but request discussion with Urology. Consultation #2: Discussed with Dr. Marcial, urology. Patient's urine likely related to purple urine syndrome consistent with UTI. They will follow-up with the patient in the hospital. Vital Signs Temperature 97.7 F 06/16/17 16:08 Pulse Rate 57 06/16/17 16:08 Respiratory Rate 18 06/16/17 16:08 Blood Pressure 113/80 06/16/17 16:08 O2 Sat by Pulse Oximetry 98 06/16/17 16:08 Temperature 97.7 F 06/16/17 16:08 Pulse Rate 62 06/16/17 20:13 Respiratory Rate 18 06/16/17 20:13 Blood Pressure 149/60 06/16/17 20:13 O2 Sat by Pulse Oximetry 97 06/16/17 20:13 Oxygen Delivery Oxygen Delivery Room Air Medical Decision Making - Lab Data Lab results reviewed: Yes I reviewed the patient's lab results. Result diagrams: 06/16/17 18:21 06/16/17 18:21 Lab Results 06/16/17 06/16/17 06/16/17 Range/Units 18:17 18:21 18:21 WBC 5.1 (4.3-11.1) K/mcL RBC 4.14 (3.82-4.97) M/mcL Hgb 11.3 L D (11.5-15.4) g/dL Hct 37.4 (35.3-44.9) % MCV 90.3 (83.0-100.0) fL MCH 27.3 L (28.0-33.3) pg MCHC 30.2 L (31.6-35.5) g/dL RDW 17.9 H (11.5-14.5) % Plt Count 182 D (140-400) K/mcL MPV 9.5 (9.4-12.4) fL Immature Gran % 3.9 (0-4) % Seg Neutrophils % 59.7 % Lymphocytes % 23.2 % Monocytes % 11.4 % Eosinophils % 1.2 % Basophils % 0.6 % Neutrophils # 3.0 (1.6-8.9) K/mcL Lymphocytes # 1.2 (0.6-4.6) K/mcL Monocytes # 0.6 (0.0-1.3) K/mcL Eosinophils # 0.1 (0.0-0.6) K/mcL Basophils # 0.0 (0.0-0.2) K/mcL Platelet Estimate Normal (Normal) Polychromasia 1+ A (Not Present) Anisocytosis 1+ A (Not Present) Sodium 142 (136-145) mEq/L Potassium 4.2 (3.5-4.5) mEq/L Chloride 110 H (98-109) mEq/L Carbon Dioxide 24 (19-29) mEq/L BUN 22 H (7-20) mg/dL Creatinine 1.14 H (0.57-1.11) mg/dL Est GFR ( Amer) 56 L (> 60) Est GFR (Non-Af Amer) 47 L (> 60) BUN/Creatinine Ratio 19 (6-26) Glucose 111 H (70-99) mg/dL Calculated Osmolality 298 (280-300) Calcium 8.9 (8.6-10.8) mg/dL Urine Color Red A (Yellow) Urine Clarity Turbid A (Clear) Urine pH 8.5 H (5.0-8.0) pH Units Ur Specific [place] 1.025 (1.010-1.025) Urine Protein >=1000 H (Neg-Trace) mg/dL Urine Glucose (UA) 100 H (Normal) mg/dL Urine Ketones Trace H (Negative) mg/dL Urine Blood Negative (Negative) Urine Nitrite Positive A (Negative) Urine Bilirubin Small H (Negative) Urine Urobilinogen Normal (Normal) mg/dL Ur Leukocyte Esterase Moderate H (Negative) Urine Microscopic RBC 0-3 (0-3) per hpf Urine Microscopic WBC 50-100 H (0-3) per hpf Ur Squamous Epith Cells Many H (None-Few) per lpf Calcium Oxalate Crystal Present Triple Phos Crystals Present Amorphous Sediment Few (Few) Urine Bacteria Many H (None-Few) per hpf Ur Culture Indicated? YES A (NO) Attestation Statement - Attestation Attestation: I personally interviewed and examined this patient and my medical decision- making was reviewed with the Resident Physician, Dr. Viera. I agree with the documented findings, disposition and treatment plan as described except to the extent set forth below. Patient is a 72-year-old white female with a history of vulvar cancer who is currently undergoing radiation therapy at the cancer center here at [place]. Patient was sent here from the cancer center due to reportedly urine leaking around her catheter site, foul-smelling urine, and concern for possible urinary tract infection. 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 Patient states that her catheter was surgically placed and was told that if this was changed to have to be done by the urologist. Patient denies any fevers or chills, no flank pain, no abdominal pain, no nausea vomiting, no other associated symptoms. Patient states that the foul-smelling urine just began this afternoon. Patient arrives hemodynamically stable. I agree with patient's physical exam findings as documented. Patient's length of stay in the emergency department with significantly delayed due to concerns with radiation exposure from her urine. My initial phone call with the radiation oncologist stated that her urine would be a direct exposure to radiation by staff. No initial phone call was made to notify staff prior to her arrival in the ED. I notified the charge nurse immediately following my conversation with her radiation oncologist. They notified the medical interpreter of the [facility] as well as radiation safety. We were notified that she received highbeam radiation with no implantation of seeds. Due to this patient is not causing any radiation exposure to staff with urine exposure. Patient had labs drawn and sent as well as urinalysis which does confirm by her urinary tract infection. Urology was contacted and consulate from the ED due to the need for catheter change. IV antibiotics were initiated and cultures were obtained. Patient remains comfortable and hemodynamically stable here in the ED. She will be admitted for continued antibiotics and urology consult. Case was discussed with the hospitalist and patient was accepted for admission.
[2017-06-16] MEDS ORDERED: Ondansetron 4 MG/2 ML VIAL IVP ONE (20:27)
[2017-06-16] MEDS ORDERED: *HR* Morphine 2 MG/ML SYRINGE IVP ONE (20:27)
[2017-06-16] MEDS ORDERED: 0.9 % Sodium Chloride 1,000 ML IVC ONE (20:35)
[2017-06-16] MEDS ORDERED: *HR* HYDROcodone/Acet 5/325 mg TABLET PO PRN (21:29)
[2017-06-16] MEDS ORDERED: Ondansetron 4 MG/2 ML VIAL IVP PRN (21:29)
[2017-06-16] MEDS ORDERED: Acetaminophen 325 MG TABLET PO PRN (21:29)
[2017-06-16] MEDS ORDERED: Naloxone 0.4 MG/ML INJ IVP PRN (21:29)
[2017-06-16] MEDS ORDERED: 0.9 % Sodium Chloride 1,000 ML IVC SCH (21:30)
[2017-06-16] MEDS ORDERED: *HR* OxyCODONE Immed Rel 5 MG TABLET PO PRN (21:32)
[2017-06-16] MEDS ORDERED: *HR* Warfarin 2.5 MG TABLET PO SCH (21:33)
--- NOTE | 2017-06-16 22:13 | Internal Med History&Physical ---
<Lizzie Briggs M - Last Filed: 06/16/17 23:31> Date of Encounter: 06/16/17 Time of Encounter: 22:05 Assessment and Plan (1) Urinary tract infection Current visit: Yes Status: Acute Patient's urine is discolored and foul smelling. UA consistent with UTI. Rocephin given in ED. Given patient's recent hospitalization and compromised immunity as cancer patient, will switch to zosyn. IV fluids 0.9NS at 75. Qualifiers: Urinary tract infection type: site unspecified Hematuria presence: without hematuria Qualified Code(s): N39.0 - Urinary tract infection, site not specified (2) Urinary catheter complication Current visit: Yes Status: Acute Patient had indwelling singleton catheter for urinary retention. She is getting radiation treatements for vulva cancer. Today singleton catheter started leaking. Previous catheter was reportedly inserted under anesthesia. Urology consulted by ED and will see patient in the morning for evaluation and singleton exchange. Qualifiers: Encounter type: initial encounter Qualified Code(s): T83.9XXA - Unspecified complication of genitourinary prosthetic device, implant and graft, initial encounter (3) Vulvar cancer Current visit: Yes Status: Chronic Patient with vulvar cancer s/p surgery and undergoing radiation. Patient elected to stop chemotherapy. Patient reports constant pain and burning related to her cancer. Continue home dose of oxycodone. Mophine IVP PRN. Oncology consult ordered Palliative care consult ordered. (4) Surgical wound, non healing Current visit: Yes Status: Acute Patient's left groin surgical wound is open approximately 1cm and draining serous fluid. Wound care consulted for dressing. Qualifiers: Encounter type: initial encounter Qualified Code(s): T81.89XA - Other complications of procedures, not elsewhere classified, initial encounter (5) Atrial fibrillation Current visit: Yes Status: Acute Patient with chronic afib, rate controlled with metoprolol, on coumadin for anti -coagulation. Heart has controlled rate, irregular rhythm on exam. Continue home dose of metoprolol and coumadin. Check PT/INR with AM labs and adjust coumadin dose accordingly (pharmacy to dose future doses). Qualifiers: Atrial fibrillation type: chronic Qualified Code(s): I48.2 - Chronic atrial fibrillation (6) Anticoagulated on Coumadin Current visit: Yes Status: Acute Patient on coumadin for atrial fibrillation and recent history of PE. Give home dose of coumadin tonight, check PT/INR with am labs. Pharmacy to dose future doses. (7) History of pulmonary embolism Current visit: Yes Status: Acute Patient was diagnosed with PE during previous hospitalization. She denies any current chest pain or shortness of breath. Continue home dose of coumadin. (8) DVT prophylaxis Current visit: Yes Status: Acute anti-embolic stockings Patient on coumadin for afib and recent PE, additional pharmacologic prophylaxis not warranted. Internal Medicine - H&P: HPI Chief complaint: leaking catheter, pain Admitted From: Emergency Dept Plans for Post Hospital Care: Home History of present illness: Ms. Holt is a 72 year old female with history of A. fib, recent PE diagnosis, hypothyroid, and vulvar cancer s/p surgery and undergoing radiation therapy presented to the emergency department today with leaking Singleton catheter. She reports the Singleton started leaking today. Constant pain, due to her cancer, she denies its worse than her baseline, however reports that she has not had her home doses of pain medicine since she has been in the ED, pain was somewhat relieved by morphine given. Patient also reports that she has an open surgical wound in her left groin from her lymphadenectomy which continuously drains fluid and needs to be dressed. She denies any chest pain, palpitations, shortness of breath, headache, lightheadedness, nausea vomiting, diarrhea. Patient does report bilateral lower extremity edema since her surgery Evaluation in the emergency department revealed a UA consistent with UTI. As patient has significant pelvic and vulvar pain, and previous catheter was placed well she was under anesthesia or surgery, spelled she should be admitted for treatment of her UTI, as well as urology consult for catheter replacement. On exam, patient is alert and oriented, in no acute distress. Heart has irregular rhythm with controlled rate. Lungs are clear bilaterally to auscultation. Vulva appears erythematous, edematous, consistent with radiation burn. Patient reports it is very tender and painful. In her left groin she has not 1 cm open surgical wound draining serous fluid. Right superior thigh groin area. Large lymphadenopathy that is erythematous. Patient reports that this is not new. Bilateral lower extremity with lymphedema. Past Med Surg Social Fam HX - Past Medical History Medical history: atrial fibrillation, cancer (vulva cancer), hypertension, pulmonary embolus, thyroid disease Psychiatric history: anxiety - Past Surgical History Surgical History: cancer surgery, hysterectomy, knee replacement (Bilateral), orthopedic, other (Right heel surgery) - Social History Smoking Status: Never smoker Smokeless Tobacco Status: No Alcohol use: none Drug use: none - Family History Father Hx Family Cardiac Disorders: Yes (ME) Hx Family Respiratory Disorders: No Hx Family Cancer: Yes (prostate) Hx Family GI Disorders: No Hx Family Endocrine Disorder: Yes (DM) Hx Family Neuromuscular Disorders: No Hx Family Neurologic Disorders: No Hx Family HEENT Disorders: No Hx Family Autoimmune Disorders: No Internal Medicine - H&P: Meds Levothyroxine [Synthroid] 150 mcg PO QAM 04/25/17 [History] Topiramate [Topamax] 25 mg PO HS 04/25/17 [History] Ondansetron [Zofran] 4 mg PO Q8HR PRN #90 tablet 05/02/17 [Rx] Prochlorperazine Maleate [Compazine] 10 mg PO Q8HR PRN #90 tablet 05/02/17 [Rx] Dibucaine [Nupercainal] 56.7 gm RC Q3-4H PRN #1 oint...g. 05/21/17 [Rx] ALPRAZolam [Xanax 0.25 MG Tablet] 0.25 mg PO BID #7 tab 06/14/17 [Rx] Metoprolol [Lopressor] 100 mg PO BID #60 tab 06/14/17 [Rx] Omeprazole [PriLOSEC] 20 mg PO DAILY@0630 #30 06/14/17 [Rx] Warfarin [Coumadin] 2.5 mg PO 1800 #30 tablet 06/14/17 [Rx] metroNIDAZOLE [VANDAZOLE 0.75% Vag Gel] 1 appl VG BID #7 06/14/17 [Rx] OxyCODONE Immed Rel [Roxicodone 5 MG] 10 mg PO Q6HR PRN #8 tab 06/16/17 [Rx] Allergies No Known Allergies Allergy (Verified 04/25/17 13:55) All Systems PM: A 10-system review of systems was performed and is negative for pertinent findings except as documented above in the HPI. - Constitutional Constitutional: no chills, no fever(s), no night sweats - EENT Eyes: no change in vision, no discharge, no pain, no photophobia Ears: no ear discharge, no ear pain, no tinnitus Nose, mouth and throat: no dysphagia, no nasal discharge, no neck pain, no sore throat - Cardiovascular Cardiovascular ROS IM: no chest pain, no diaphoresis, no dyspnea, no lightheadedness, no palpitations, no syncope - Respiratory Respiratory: no cough, no dyspnea, no wheezing, no excessive phlegm production - Gastrointestinal Gastrointestinal: no abdominal pain, no diarrhea, no hematemesis, no hematochezia, no melena, no nausea, no vomiting - Genitourinary Genitourinary: dysuria, pelvic pain, other, no change in urinary stream, no flank pain, no hematuria Additional comments: singleton leaking - Musculoskeletal Musculoskeletal ROS IM: no numbness, no tingling - Integumentary Integumentary IM: no rash, no unusual bruising - Neurological Neurological ROS: no confusion, no convulsions, no focal weakness, no numbness, no tingling, no tremor(s) - Hematologic/Lymphatic Hematologic/Lymphatic: no easy bruising - Constitutional Vitals: Temp Pulse Resp BP Pulse Ox 97.7 F 62 18 149/60 97 06/16/17 16:08 06/16/17 20:13 06/16/17 20:13 06/16/17 20:13 06/16/17 20:13 General appearance: Present: A&O X 3, pleasant, no acute distress - Head Head exam: Present: atraumatic, normocephalic - Eye Eye exam: Present: PERRL, conjuntiva pink, sclera anicteric Pupils: Present: PERRL - Neck Neck exam general surgery: Present: supple, trachea midline. Absent: lymphadenopathy - Respiratory Respiratory exam: Present: CTAB. Absent: accessory muscle use, rales, rhonchi, wheezes - Cardiovascular Cardiovascular exam: Present: irregular rhythm, +S1, +S2. Absent: diastolic murmur, gallop, rubs, systolic murmur - GI/Abdominal GI/Abdominal exam: Present: normal bowel sounds, soft, no peritoneal signs. Absent: distended, tenderness - External exam: Present: erythema, swelling - Expanded Exam Female exam: Present: vulvar tenderness - Extremities Exam Extremities exam: Present: pedal edema, warm, radial pulses palpable and symetrical. Absent: calf tenderness, cyanotic Additional comments: BLE lymphedema - Neurological Exam Neurological exam: Present: CN II-XII intact, oriented X3, no focal deficits. Absent: pronater drift, facial droop, speech deficit - Skin Additional comments: open surgical wound in left groin with serous drainage. Right groin with large erythematous lymphademopathy Internal Med - H&P Results - Labs CBC & Chem 7: 06/16/17 18:21 06/16/17 18:21 Labs: All Lab Results (24 Hours) 06/16/17 06/16/17 06/16/17 Range/Units 18:17 18:21 18:21 WBC 5.1 (4.3-11.1) K/mcL RBC 4.14 (3.82-4.97) M/mcL Hgb 11.3 L D (11.5-15.4) g/dL Hct 37.4 (35.3-44.9) % MCV 90.3 (83.0-100.0) fL MCH 27.3 L (28.0-33.3) pg MCHC 30.2 L (31.6-35.5) g/dL RDW 17.9 H (11.5-14.5) % Plt Count 182 D (140-400) K/mcL MPV 9.5 (9.4-12.4) fL Immature Gran % 3.9 (0-4) % Seg Neutrophils % 59.7 % Lymphocytes % 23.2 % Monocytes % 11.4 % Eosinophils % 1.2 % Basophils % 0.6 % Neutrophils # 3.0 (1.6-8.9) K/mcL Lymphocytes # 1.2 (0.6-4.6) K/mcL Monocytes # 0.6 (0.0-1.3) K/mcL Eosinophils # 0.1 (0.0-0.6) K/mcL Basophils # 0.0 (0.0-0.2) K/mcL Platelet Estimate Normal (Normal) Polychromasia 1+ A (Not Present) Anisocytosis 1+ A (Not Present) Sodium 142 (136-145) mEq/L Potassium 4.2 (3.5-4.5) mEq/L Chloride 110 H (98-109) mEq/L Carbon Dioxide 24 (19-29) mEq/L BUN 22 H (7-20) mg/dL Creatinine 1.14 H (0.57-1.11) mg/dL Est GFR ( Amer) 56 L (> 60) Est GFR (Non-Af Amer) 47 L (> 60) BUN/Creatinine Ratio 19 (6-26) Glucose 111 H (70-99) mg/dL Calculated Osmolality 298 (280-300) Calcium 8.9 (8.6-10.8) mg/dL Urine Color Red A (Yellow) Urine Clarity Turbid A (Clear) Urine pH 8.5 H (5.0-8.0) pH Units Ur Specific [place] 1.025 (1.010-1.025) Urine Protein >=1000 H (Neg-Trace) mg/dL Urine Glucose (UA) 100 H (Normal) mg/dL Urine Ketones Trace H (Negative) mg/dL Urine Blood Negative (Negative) Urine Nitrite Positive A (Negative) Urine Bilirubin Small H (Negative) Urine Urobilinogen Normal (Normal) mg/dL Ur Leukocyte Esterase Moderate H (Negative) Urine Microscopic RBC 0-3 (0-3) per hpf Urine Microscopic WBC 50-100 H (0-3) per hpf Ur Squamous Epith Cells Many H (None-Few) per lpf Calcium Oxalate Crystal Present Triple Phos Crystals Present Amorphous Sediment Few (Few) Urine Bacteria Many H (None-Few) per hpf Ur Culture Indicated? YES A (NO) <John Irvin - Last Filed: 06/16/17 23:59> Date of Encounter: 06/16/17 Internal Medicine - H&P: HPI History of present illness: Ms. Holt is a 72 year old female All Systems PM: A 10-system review of systems was performed and is negative for pertinent findings except as documented above in the HPI. - Constitutional Vitals: Temp Pulse Resp BP Pulse Ox 97.9 F 99 16 124/92 97 06/16/17 23:17 06/16/17 23:17 06/16/17 23:17 06/16/17 23:17 06/16/17 23:17 Internal Med - H&P Results - Labs CBC & Chem 7: 06/16/17 18:21 06/16/17 18:21 - Attending Attestation I independently obtained history and examined this patient and my medical decision-making was reviewed with the nurse practitioner, Lizzie Briggs. I agree with the documented findings, disposition and treatment plan as described. My findings are summarized below: Patient with vulvar cancer undergoing radiation therapy admitted today for UTI. Plan: Broad-spectrum IV antibiotics. Urology consult. Oncology consult. I recommend palliative care consult.
[2017-06-16] MEDS: *HR* Morphine 2 MG/ML SYRINGE IVP PRN (23:46)
[2017-06-16] MEDS: Metoprolol 100 MG TABLET PO SCH (23:46)
[2017-06-16] MEDS: Piperacillin/Tazobactam 3.375 GM in D5% in Water (Mini-Bag+) 100 ML IVPB SCH (23:47)
[2017-06-16] MEDS: ALPRAZolam 0.25 MG TABLET PO SCH (23:47)
[2017-06-17] MEDS: *HR* Morphine 2 MG/ML SYRINGE IVP PRN (03:54)
[2017-06-17 04:25] LABS: Basophils % 0.4 %; Eosinophils # 0.1 K/mcL (0.0-0.6); Eosinophils % 1.2 %; Hematocrit 35.1 % (35.3-44.9); Hemoglobin 10.7 g/dL (11.5-15.4); Immature Granulocytes % 2.8 % (0-4); Lymphocytes % 19.6 %; Mean Corpuscular HGB Conc 30.5 g/dL (31.6-35.5); Mean Corpuscular Hemoglobin 27.6 pg (28.0-33.3); Mean Corpuscular Volume 90.5 fL (83.0-100.0); Mean Platelet Volume 9.8 fL (9.4-12.4); Monocytes # 0.5 K/mcL (0.0-1.3); Monocytes % 10.4 %; Neutrophils # 3.3 K/mcL (1.6-8.9); Platelet Count 168 K/mcL (140-400); Red Blood Count 3.88 M/mcL (3.82-4.97); Red Cell Distribution Width 18.1 % (11.5-14.5); Segmented Neutrophils % 65.6 %
[2017-06-17 04:43] LABS: BUN/Creatinine Ratio 23 (6-26); Blood Urea Nitrogen 24 mg/dL (7-20); Carbon Dioxide 23 mEq/L (19-29); Chloride 112 mEq/L (98-109); INR 1.4; Potassium 3.9 mEq/L (3.5-4.5); Prothrombin Time 15.7 Seconds (9.4-12.1); Sodium 142 mEq/L (136-145); eGFR For African Americans > 60 (> 60)
[2017-06-17 04:44] LABS: Calcium 8.1 mg/dL (8.6-10.8); Glucose 110 mg/dL (70-99); Osmolality,Calculated 299 (280-300); eGFR For Non-African Americans 51 (> 60)
[2017-06-17 04:48] LABS: Activated Partial Thrombo Time 27.3 Seconds (26.0-36.0)
[2017-06-17 05:02] LABS: Platelet Estimate Normal (Normal); Reactive Lymphocytes Present (Not Present)
[2017-06-17] MEDS ORDERED: *HR* Morphine 2 MG/ML SYRINGE IVP PRN (06:31)
--- NOTE | 2017-06-17 08:13 | Urology - Consult Note ---
Date of Encounter: 06/17/17 Time of Encounter: 08:10 - Assessment and Plan (1) Urethral stricture Current Visit: Yes Status: Acute Assessment and plan: 72-year-old woman with a history of a narrow urethra and an indwelling catheter. She informs that this catheter was placed while she was in the operating room. There is not much in the way of records regarding the procedure. I will need to contact my partner to get further clarification on the difficulty of the catheter placement. This catheter change may need to be [facility] with the accessibility of a scope, wires, and dilators. This may be difficult to perform in a hospital bed. I will continue the catheter for now. Await results of the urine culture. Continue antibiotics. will follow along and determine catheter change later today. Qualifiers: Urethral stricture type: other stricture Qualified Code(s): N35.8 - Other urethral stricture Urology CN:[facility] Consult date: 06/17/17 Reason for consult Urology: Difficult Bernal History of present illness: 72-year-old woman returns to the hospital for a urinary tract infection. She has a history of vulvar cancer. While in the operating room a catheter was placed by Dr. Mccartney. There was difficulty getting this catheter in and a 12 Nepali silicone catheter was placed. She was seen at the cancer center and noted to have incontinence around the catheter. She was then brought to the emergency room and admitted for urinary tract infection. She says that the incontinence has improved since being admitted. She denies any fevers or chills. Past Med Surg Social Fam HX - Past Medical History Medical history: atrial fibrillation, cancer (vulva cancer), hypertension, pulmonary embolus, thyroid disease Psychiatric history: anxiety - Past Surgical History Surgical History: cancer surgery, hysterectomy, knee replacement (Bilateral), orthopedic, other (Right heel surgery) - Social History Smoking Status: Never smoker Smokeless Tobacco Status: No Alcohol use: none Drug use: none - Family History Father Hx Family Cardiac Disorders: Yes ([place]) Hx Family Respiratory Disorders: No Hx Family Cancer: Yes (prostate) Hx Family GI Disorders: No Hx Family Endocrine Disorder: Yes (DM) Hx Family Neuromuscular Disorders: No Hx Family Neurologic Disorders: No Hx Family HEENT Disorders: No Hx Family Autoimmune Disorders: No Medications and Allergies Levothyroxine [Synthroid] 150 mcg PO QAM 04/25/17 [History] Topiramate [Topamax] 25 mg PO HS 04/25/17 [History] Ondansetron [Zofran] 4 mg PO Q8HR PRN #90 tablet 05/02/17 [Rx] Prochlorperazine Maleate [Compazine] 10 mg PO Q8HR PRN #90 tablet 05/02/17 [Rx] Dibucaine [Nupercainal] 56.7 gm RC Q3-4H PRN #1 oint...g. 05/21/17 [Rx] ALPRAZolam [Xanax 0.25 MG Tablet] 0.25 mg PO BID #7 tab 06/14/17 [Rx] Metoprolol [Lopressor] 100 mg PO BID #60 tab 06/14/17 [Rx] Omeprazole [PriLOSEC] 20 mg PO DAILY@0630 #30 06/14/17 [Rx] Warfarin [Coumadin] 2.5 mg PO 1800 #30 tablet 06/14/17 [Rx] metroNIDAZOLE [VANDAZOLE 0.75% Vag Gel] 1 appl VG BID #7 06/14/17 [Rx] OxyCODONE Immed Rel [Roxicodone 5 MG] 10 mg PO Q6HR PRN #8 tab 06/16/17 [Rx] Allergies No Known Allergies Allergy (Verified 04/25/17 13:55) Review of Systems - Constitutional no chills, no fever(s) - EENT Nose, mouth and throat: no dizziness - Cardiovascular no chest pain - Respiratory no dyspnea - Gastrointestinal no nausea, no vomiting - Genitourinary Genitourinary: no flank pain, no hematuria - Musculoskeletal no back pain - Integumentary no erythema, no rash - Neurological no weakness - Psychiatric no suicidal ideation - Hematologic/Lymphatic no easy bleeding - Allergic/Immunologic no wheezing Exam Initial Vital Signs Temp Pulse Resp BP Pulse Ox 97.7 F 57 18 113/80 98 06/16/17 16:08 06/16/17 16:08 06/16/17 16:08 06/16/17 16:08 06/16/17 16:08 - General physical appearance Present: well developed, well nourished, no distress - Eyes Absent: icteric - ENT Present: normal nares - Neck Present: trachea midline - Respiratory Present: normal respiratory effort - Cardiovascular Cardiovascular exam IM: RRR - Abdomen Abdomen: Present: soft - Genitourinary Present: other ([address] with murky colored urine.) Urology Results - Labs 06/17/17 03:26 06/17/17 03:26 Abnormal lab results Hgb 10.7 g/dL (11.5-15.4) L 06/17/17 03:26 Hct 35.1 % (35.3-44.9) L 06/17/17 03:26 MCH 27.6 pg (28.0-33.3) L 06/17/17 03:26 MCHC 30.5 g/dL (31.6-35.5) L 06/17/17 03:26 RDW 18.1 % (11.5-14.5) H 06/17/17 03:26 Reactive Lymphocytes Present (Not Present) A 06/17/17 03:26 Polychromasia 1+ (Not Present) A 06/16/17 18:21 Anisocytosis 1+ (Not Present) A 06/16/17 18:21 PT 15.7 Seconds (9.4-12.1) H 06/17/17 03:26 Chloride 112 mEq/L (98-109) H 06/17/17 03:26 BUN 24 mg/dL (7-20) H 06/17/17 03:26 Est GFR (Non-Af Amer) 51 (> 60) L 06/17/17 03:26 Glucose 110 mg/dL (70-99) H 06/17/17 03:26 Calcium 8.1 mg/dL (8.6-10.8) L 06/17/17 03:26 Urine Color Red (Yellow) A 06/16/17 18:17 Urine Clarity Turbid (Clear) A 06/16/17 18: Urine pH 8.5 pH Units (5.0-8.0) H 06/16/17 18: Urine Protein >=1000 mg/dL (Neg-Trace) H 06/16/17 18:17 Urine Glucose (UA) 100 mg/dL (Normal) H 06/16/17 18:17 Urine Ketones Trace mg/dL (Negative) H 06/16/17 18:17 Urine Nitrite Positive (Negative) A 06/16/17 18: Urine Bilirubin Small (Negative) H 06/16/17 18:17 Ur Leukocyte Esterase Moderate (Negative) H 06/16/17 18:17 Urine Microscopic WBC 50-100 per hpf (0-3) H 06/16/17 18:17 Ur Squamous Epith Cells Many per lpf (None-Few) H 06/16/17 18:17 Urine Bacteria Many per hpf (None-Few) H 06/16/17 18:17 Ur Culture Indicated? YES (NO) A 06/16/17 18:17 Diabetes panel 06/17/17 Range/Units 03:26 Sodium 142 (136-145) mEq/L Potassium 3.9 (3.5-4.5) mEq/L Chloride 112 H (98-109) mEq/L Carbon Dioxide 23 (19-29) mEq/L BUN 24 H (7-20) mg/dL Creatinine 1.06 (0.57-1.11) mg/dL Glucose 110 H (70-99) mg/dL Calcium 8.1 L (8.6-10.8) mg/dL Calcium panel 06/17/17 Range/Units 03:26 Calcium 8.1 L (8.6-10.8) mg/dL Pituitary panel 06/17/17 Range/Units 03:26 Sodium 142 (136-145) mEq/L Potassium 3.9 (3.5-4.5) mEq/L Chloride 112 H (98-109) mEq/L Carbon Dioxide 23 (19-29) mEq/L BUN 24 H (7-20) mg/dL Creatinine 1.06 (0.57-1.11) mg/dL Glucose 110 H (70-99) mg/dL Calcium 8.1 L (8.6-10.8) mg/dL Adrenal panel 06/17/17 Range/Units 03:26 Sodium 142 (136-145) mEq/L Potassium 3.9 (3.5-4.5) mEq/L Chloride 112 H (98-109) mEq/L Carbon Dioxide 23 (19-29) mEq/L BUN 24 H (7-20) mg/dL Creatinine 1.06 (0.57-1.11) mg/dL Glucose 110 H (70-99) mg/dL Calcium 8.1 L (8.6-10.8) mg/dL All other labs normal. Consult Discharge Plan - Plan Referrals: Ashley Wright CNP [Primary Care Provider] -
[2017-06-17] MEDS: ALPRAZolam 0.25 MG TABLET PO SCH ×2 (08:22→20:14)
[2017-06-17] MEDS: Metoprolol 100 MG TABLET PO SCH ×2 (08:23→20:13)
[2017-06-17] MEDS: Piperacillin/Tazobactam 3.375 GM in D5% in Water (Mini-Bag+) 100 ML IVPB SCH ×2 (08:23→17:17)
[2017-06-17] MEDS: *HR* HYDROmorphone (PF) 1 MG/ML SYRINGE IVP PRN ×4 (08:55→21:09)
--- NOTE | 2017-06-17 09:04 | Internal Med Progress Note ---
Date of Encounter: 06/17/17 Time of Encounter: 08:15 - Assessment and plan (1) Urinary tract infection Current Visit: Yes Status: Acute Assessment and plan: Urine is foul-smelling again today. Urine culture is pending. UA yesterday showed moderate leukocyte esterase, 50-100 WBC, many bacteria, positive nitrites , red in color, and turbid. Continue IV Zosyn and IVF at 75ml/hour\ Urology on board, as well. Culture is pending. Qualifiers: Urinary tract infection type: site unspecified Hematuria presence: without hematuria Qualified Code(s): N39.0 - Urinary tract infection, site not specified (2) Anemia Current Visit: Yes Status: Chronic Assessment and plan: Pt had mildly decreased iron level 06/2016. She does not appear to be taking any supplementation. Pt is also receiving radiation therapy. Hbg today is 10.7 which appears to be baseline for her. Continue to monitor. Qualifiers: Anemia type: unspecified type Qualified Code(s): D64.9 - Anemia, unspecified (3) Urinary catheter complication Current Visit: Yes Status: Acute Assessment and plan: Catheter was placed by urology while pt was in surgery. They are on board and have seen her today and will reassess need for replacing cath today. Qualifiers: Encounter type: initial encounter Qualified Code(s): T83.9XXA - Unspecified complication of genitourinary prosthetic device, implant and graft, initial encounter (4) Atrial fibrillation Current Visit: Yes Status: Acute Assessment and plan: Pt remains in a-fib. Continue Metoprolol bid and Coumadin. Continue to monitor pt and rate. Qualifiers: Atrial fibrillation type: chronic Qualified Code(s): I48.2 - Chronic atrial fibrillation (5) Anticoagulated on Coumadin Current Visit: Yes Status: Acute Assessment and plan: INR subtherapeutic today at 1.4. Pharmacy to dose. (6) History of pulmonary embolism Current Visit: Yes Status: Acute Assessment and plan: Plan as above. (7) Surgical wound, non healing Current Visit: Yes Status: Acute Assessment and plan: Pt has wound to L groin from lymph node surgery. Wound care is following. Wound is open and draining. Fluid contains creatinine. Urology is on board and will reassess later today for need for cath placement. Qualifiers: Encounter type: initial encounter Qualified Code(s): T81.89XA - Other complications of procedures, not elsewhere classified, initial encounter (8) Vulvar cancer Current Visit: Yes Status: Chronic Assessment and plan: Diagnosed in February. Pt has decided to not continue chemotherapy. Currently undergoing radiation treatments. REports constant burning pain to vulva and urethra. Medication has been changed and I will continue to assess and adjust medications as needed. (9) DVT prophylaxis Current Visit: Yes Status: Acute - Time Spent With Patient less than 15 minutes - Subjective Interval history: Pt was seen and assessed at 0815. She is A/O x 3. Pt appears to be in pain, has a flat affect, and is at times slow to answer. She states that she has constant burning around her catheter that is relieved by nothing. - Constitutional Vitals: Temp Pulse Resp BP Pulse Ox 98.1 F 110 18 131/85 95 06/17/17 07:32 06/17/17 07:32 06/17/17 07:32 06/17/17 07:32 06/17/17 07:32 General appearance: Present: cooperative, A&O X 3, pleasant, no acute distress, obese, answers questions appropriately - Head Head exam: Present: normal inspection - Eye Eye exam: Present: normal appearance, conjuntiva pink - ENT ENT exam: Present: mucous membranes moist, normal exam, normal external ear exam - Neck Neck exam general surgery: Present: normal inspection. Absent: lymphadenopathy , tenderness - Respiratory Respiratory exam: Present: CTAB. Absent: chest wall tenderness, rales, respiratory distress, rhonchi, stridor, wheezes - Cardiovascular Cardiovascular exam: Present: RRR, +S1, +S2. Absent: bradycardia, clicks, diastolic murmur, systolic murmur, tachycardia - GI/Abdominal GI/Abdominal exam: Present: distended, normal bowel sounds, soft. Absent: hepatomegaly, tenderness - Extremities Exam Extremities exam: Present: normal capillary refill, normal inspection, pedal edema, warm, radial pulses palpable and symetrical. Absent: tenderness - Neurological Exam Neurological exam: Present: alert, oriented X3, no focal deficits. Absent: facial droop, speech deficit - Skin Skin exam: Present: dry, warm. Absent: intact Internal Medicine: Result - Labs CBC & Chem 7: 06/17/17 03:26 06/17/17 03:26 Labs: Short CBC 06/17/17 Range/Units 03:26 WBC 5.0 (4.3-11.1) K/mcL Hgb 10.7 L (11.5-15.4) g/dL Hct 35.1 L (35.3-44.9) % Plt Count 168 (140-400) K/mcL Neutrophils # 3.3 (1.6-8.9) K/mcL BMP 06/17/17 03:26 Sodium 142 Potassium 3.9 Chloride 112 H Carbon Dioxide 23 BUN 24 H Creatinine 1.06 Glucose 110 H Calcium 8.1 L - ABG Interpretation ABG results: PT/INR, D-dimer PT 15.7 Seconds (9.4-12.1) H 06/17/17 03:26 Consult Discharge Plan - Plan Referrals: Ashley Wright CNP [Primary Care Provider] -
--- NOTE | 2017-06-17 09:50 | Oncology Inp Consult Note ---
Date of Encounter: 06/17/17 Time of Encounter: 09:47 Assessment and Plan (1) Vulvar cancer Status: Chronic Assessment and plan: I explained to Ms. Holt that we could consider to resume her chemoradiation treatments ( with curative intent) while inpatient, to avoid prolonged pauses that could affect the clinical outcomes regarding her early stage vulvar cancer. As discussed with Dr. Quintanilla, she still has approximately 3 weeks left. She has decided previously to discontinue chemotherapy and continue only radiation. Today, she expressed her decision against receiving radiation therapy while inpatient, however she would consider to resume it after being discharged from the hospital. She was explained about the role of radiation and chemotherapy in the treatment of vulvar cancer. I discussed the current issues with Dr. Quintanilla. (2) Urinary tract infection Status: Acute Assessment and plan: I appreciate primary team excellent care. Being managed with zosyn. Urine cultures in process. - Urology on board due to issues related to urethra stricture, UTI and urine leaking. Urology is assessing whether her singleton catheter needs to be replaced in the OR. Qualifiers: Urinary tract infection type: site unspecified Hematuria presence: without hematuria Qualified Code(s): N39.0 - Urinary tract infection, site not specified (3) Pulmonary embolism Status: Acute Assessment and plan: There are not clinical findings suggestive of recurrent VTE, but her INR is subtherapeutic. - Consider to bridge with lovenox ( 1 mg/kg SQ BID) until INR is within therapeutic range. Follow up renal function daily. Qualifiers: Pulmonary embolism type: other Chronicity: acute Acute cor pulmonale presence: without acute cor pulmonale Qualified Code(s): I26.99 - Other pulmonary embolism without acute cor pulmonale - Data of Consult Requesting Physician: Jackeline Mcneil Primary Care Provider: Ashley Wright, - Consult Narrative Reason for consult: Management of early stage vulvar cancer History of present illness: Ms. 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 Mirtha was admitted yesterday, after being sent from the radiation oncology department to the ED due to concerns for UTI in view of change of coloration of the urine, bad smell and leaking of the singleton catheter. She was started on IV antibiotics ( rocephin ) and seen by urologist, who recommended to keep the singleton cathether for now. she has a history of narrow urethra, and previously her singleton was placed in the operating room. She reports ongoing leaking, but has full control of her bladder, denying urinary incontinence at this time. Previous to her current hospitalization, she has expressed some reluctance about receiving treatment, and chemotherapy has been discontinued. She still has approximately 3 weeks left of her radiation treatments. During her previous hospitalization she was diagnosed with PE and was started on coumadin. she was bridged with heparin drip ( initially lovenox, but was changed after she developed JOSE). Her INR today was sub therapeutic at 1.4. she denies any recent bleeding event, or clinical events suggestive of recurrent thrombosis. Her PE occurred while she was anticoagulated for Afib with xarelto ( for one month). Past Med Surg Social Fam HX - Past Medical History Medical history: atrial fibrillation, cancer (vulva cancer), hypertension, pulmonary embolus, thyroid disease Psychiatric history: anxiety - Past Surgical History Surgical History: cancer surgery, hysterectomy, knee replacement (Bilateral), orthopedic, other (Right heel surgery) - Social History Smoking Status: Never smoker Smokeless Tobacco Status: No Alcohol use: none Drug use: none - Family History Father Hx Family Cardiac Disorders: Yes ([place]) Hx Family Respiratory Disorders: No Hx Family Cancer: Yes (prostate) Hx Family GI Disorders: No Hx Family Endocrine Disorder: Yes (DM) Hx Family Neuromuscular Disorders: No Hx Family Neurologic Disorders: No Hx Family HEENT Disorders: No Hx Family Autoimmune Disorders: No Medications and Allergies Levothyroxine [Synthroid] 150 mcg PO QAM 04/25/17 [History] Topiramate [Topamax] 25 mg PO HS 04/25/17 [History] Ondansetron [Zofran] 4 mg PO Q8HR PRN #90 tablet 05/02/17 [Rx] Prochlorperazine Maleate [Compazine] 10 mg PO Q8HR PRN #90 tablet 05/02/17 [Rx] Dibucaine [Nupercainal] 56.7 gm RC Q3-4H PRN #1 oint...g. 05/21/17 [Rx] ALPRAZolam [Xanax 0.25 MG Tablet] 0.25 mg PO BID #7 tab 06/14/17 [Rx] Metoprolol [Lopressor] 100 mg PO BID #60 tab 06/14/17 [Rx] Omeprazole [PriLOSEC] 20 mg PO DAILY@0630 #30 06/14/17 [Rx] Warfarin [Coumadin] 2.5 mg PO 1800 #30 tablet 06/14/17 [Rx] metroNIDAZOLE [VANDAZOLE 0.75% Vag Gel] 1 appl VG BID #7 06/14/17 [Rx] OxyCODONE Immed Rel [Roxicodone 5 MG] 10 mg PO Q6HR PRN #8 tab 06/16/17 [Rx] Allergies No Known Allergies Allergy (Verified 04/25/17 13:55) Constitutional: Present: fatigue Nose, mouth and throat: Present: as per HPI Cardiovascular: Present: edema, irregular heart rhythm, leg edema. Absent: leg ulcers Respiratory: Absent: hemoptysis, pain on inspiration, excessive phlegm production Gastrointestinal: Absent: abdominal pain, dysphagia Genitourinary: Present: difficulty urinating, difficulty voiding, other ( vaginal pain). Absent: flank pain, menorrhagia, metrorrhagia Oncology - Exam - Constitutional Vitals: Temp Pulse Resp BP Pulse Ox 98.1 F 110 18 131/85 95 06/17/17 07:32 06/17/17 07:32 06/17/17 07:32 06/17/17 07:32 06/17/17 07:32 General appearance: no acute distress - Head Head exam: Present: normal inspection - Eye Eye exam: Present: EOMI - ENT ENT exam: Present: normal oropharynx - Neck Neck exam: Present: normal inspection - Respiratory Respiratory exam: Present: CTAB - Cardiovascular Cardiovascular exam: Present: irregular rhythm - GI/Abdominal GI/Abdominal exam: Present: normal bowel sounds. Absent: guarding, organomegaly - Extremities Exam Extremities exam: Present: pedal edema - Neurological Exam Neurological exam: Present: oriented X3 - Psychiatric Psychiatric exam: Present: normal affect Oncology - Results - Labs Labs: Short CBC 06/17/17 Range/Units 03:26 WBC 5.0 (4.3-11.1) K/mcL Hgb 10.7 L (11.5-15.4) g/dL Hct 35.1 L (35.3-44.9) % Plt Count 168 (140-400) K/mcL Neutrophils # 3.3 (1.6-8.9) K/mcL [facility] 06/17/17 03:26 Sodium 142 Potassium 3.9 Chloride 112 H Carbon Dioxide 23 BUN 24 H Creatinine 1.06 Glucose 110 H Calcium 8.1 L Consult Discharge Plan - Plan Referrals: Ashley Wright, [facility] [Primary Care Provider] -
[2017-06-17] MEDS ORDERED: Aquaphor/Maalox 50 GM BOTTLE TP PRN (11:15)
--- NOTE | 2017-06-17 12:55 | Palliative - Consult Note ---
Date of Encounter: 06/17/17 Time of Encounter: 11:00 - Assessment and Plan (1) Goals of care, counseling/discussion Current Visit: Yes Status: Acute Assessment and plan: Patient alert, sitting up at bedside. Current code status is DNRCC-A, DNI. Patient currently undergoing chemoradition despite setback with inpatient admissions for PE. Patient reports living at home in the care of her sons. She reports being fully ambulatory. Her desires are to hold off on having radiation while in the hospital but desires to continue treatment. Currently receiving HH from [facility]. She desires to continue with this service and return [place] at [place]. (2) Cancer associated pain Current Visit: Yes Status: Acute Assessment and plan: Patient with vulvar cancer and receiving chemoradition. Patient with severe burning, redness and skin tenderness to bilateral groins and vaginal area. Patient reports localized pain at a constant 8/10. Provided jonathon-care and cleaned vaginal area. Patient tolerated cleaning with discomfort. Singleton catheter intact with strong odor. Culture pending. Discussed pain medication needs. Plan: Add Sitz bath QID and PRN for comfort Add MS Contin 15mg BID scheduled Oxycodone 10 every 6 hrs for BTP moderate pain Dilaudid 0.5 PRN for BTP serve pain AquaPhor and Maalox mixture to vaginal and groin areas for skin barrier protection and comfort Dibucaine QID for localized comfort Patient approved plan and will initiate. Discussed above plan with Pharmacy, Bhupendra, Wound Care and Vladimir Corrales QA TECH Will follow and adjust accordingly. (3) Urinary tract infection Current Visit: Yes Status: Acute Assessment and plan: Culture pending. Antibiotics and Urology following for singleton catheter evaluation Qualifiers: Urinary tract infection type: site unspecified Hematuria presence: without hematuria Qualified Code(s): N39.0 - Urinary tract infection, site not specified (4) Vulvar cancer Current Visit: Yes Status: Chronic Assessment and plan: Oncology following, appreciate input Palliative-CN HPI - Data of Consult Patient: known to practice within the last 3 years Consult date: 06/17/17 Requesting Physician: Lizzie Briggs Primary Care Provider: Ashley Wright, - Consult Narrative Palliative Care/Comfort Measures: Palliative care Reason for consult: Goals of Care History of present illness: Ms. 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 She was admitted yesterday after being sent from the radiation oncology department to the ED. Admitted for UTI. She has an indwelling singleton catheter in place for urethral structure. The patient was recently hospitalized for PE and started on coumadin. This palliative consult is for goals of care discussion. CC: Jackeline Mcneil Past Med Surg Social Fam HX - Past Medical History Source: patient, old records reviewed, obtained from family Medical history: atrial fibrillation, cancer (vulva cancer), hypertension, pulmonary embolus, thyroid disease Psychiatric history: anxiety - Past Surgical History Surgical History: cancer surgery, hysterectomy, knee replacement (Bilateral), orthopedic, other (Right heel surgery) - Social History Smoking Status: Never smoker Smokeless Tobacco Status: No Alcohol use: none Drug use: none - Family History Father Hx Family Cardiac Disorders: Yes (MT) Hx Family Respiratory Disorders: No Hx Family Cancer: Yes (prostate) Hx Family GI Disorders: No Hx Family Endocrine Disorder: Yes (DM) Hx Family Neuromuscular Disorders: No Hx Family Neurologic Disorders: No Hx Family HEENT Disorders: No Hx Family Autoimmune Disorders: No Medications and Allergies Levothyroxine [Synthroid] 150 mcg PO QAM 04/25/17 [History] Topiramate [Topamax] 25 mg PO HS 04/25/17 [History] Ondansetron [Zofran] 4 mg PO Q8HR PRN #90 tablet 05/02/17 [Rx] Prochlorperazine Maleate [Compazine] 10 mg PO Q8HR PRN #90 tablet 05/02/17 [Rx] Dibucaine [Nupercainal] 56.7 gm RC Q3-4H PRN #1 oint...g. 05/21/17 [Rx] ALPRAZolam [Xanax 0.25 MG Tablet] 0.25 mg PO BID #7 tab 06/14/17 [Rx] Metoprolol [Lopressor] 100 mg PO BID #60 tab 06/14/17 [Rx] Omeprazole [PriLOSEC] 20 mg PO DAILY@0630 #30 06/14/17 [Rx] Warfarin [Coumadin] 2.5 mg PO 1800 #30 tablet 06/14/17 [Rx] metroNIDAZOLE [VANDAZOLE 0.75% Vag Gel] 1 appl VG BID #7 06/14/17 [Rx] OxyCODONE Immed Rel [Roxicodone 5 MG] 10 mg PO Q6HR PRN #8 tab 06/16/17 [Rx] Allergies No Known Allergies Allergy (Verified 04/25/17 13:55) All systems: reviewed and no additional remarkable complaints except as stated ( vaginal burning, singleton catheter leaking, foul smelling urine, redness to vaginal area) - Constitutional Constitutional ROS PAL: fatigue - EENT Eyes: requires corrective lenses - Cardiovascular Cardiovascular ROS: irregular heart rhythm - Gastrointestinal Gastrointestinal: nausea - Genitourinary Palliative ROS female: pelvic pain, vaginal discharge (Indwelling urinary catheter with dark brown, thick, smelling urine) - Musculoskeletal Musculoskeletal ROS IM: muscle weakness - Integumentary ROS Integumentary: dry skin, erythema, wounds (Left groin) - Neurological Neurological ROS: weakness Palliative Care-Exam - Constitutional Vitals: Temp Pulse Resp BP Pulse Ox 98.2 F 79 16 118/85 95 06/17/17 11:54 06/17/17 11:54 06/17/17 11:54 06/17/17 11:54 06/17/17 11:54 General appearance: Present: cooperative, no acute distress - Head Head Exam: Present: atraumatic, normal inspection, normocephalic - Eye Eye exam: Present: PERRL Pupils: Present: PERRL - ENT ENT exam: Present: mucous membranes moist - Expanded ENT Exam Mouth Exam: Present: moist - Neck Neck exam: Present: full ROM - Respiratory Respiratory exam: Present: CTAB - Cardiovascular Cardiovascular exam: Present: irregular rhythm, +S1, +S2 - Expanded Cardiovascular Exam Peripheral pulses: 1+: Femoral (L) PM, Femoral (R) PM, Posterior Tibialis (L), Posterior Tibialis (R), 2+: Carotid (L) PM, Carotid (R) PM, Radial (L), Radial ( R), Dorsalis Pedis (L) PM, Dorsalis Pedis (R) PM - GI/Abdominal Exam GI/Abdominal exam: Present: normal bowel sounds, soft - Rectal Rectal exam: Present: deferred - External exam: Present: erythema, swelling Catheter Type: Urethral (Singleton) (Dark brown foul smelling urine with sediment to bag) Additional comments: Vaginal area bright red and warm. Patient reports localized intense vaginal burning and stinging pain. Rates 8/10, constant, stinging pain. Aggravated with movement. Examination of groins and labial folds and vaginal area reveals extreme redness and radiation burn to surrounding skin. Patient reports extreme pain with palpation and burning. Cleaned arer with wet warm washcloth and light soap. Singleton care provided. - Extremities Exam Extremities exam: Present: full ROM - Expanded Upper Extremities Exam Upper Arm exam: Present: full ROM Forearm wrist exam: Present: full ROM - Expanded Lower Extremities Exam Upper Leg exam: Present: full ROM Lower Leg exam: Present: full ROM - Neurological Exam Neurological exam: Present: alert, oriented X3 - Expanded Neurological Exam Coma Scale Eye Opening: Spontaneous Coma Scale Motor Response: Obeys Commands Coma Scale Verbal Response: Oriented Coma Scale Total: 15 Internal Medicine - CN: Reslt - Labs CBC & Chem 7: 06/17/17 03:26 06/17/17 03:26 Labs: Short CBC 06/17/17 Range/Units 03:26 WBC 5.0 (4.3-11.1) K/mcL Hgb 10.7 L (11.5-15.4) g/dL Hct 35.1 L (35.3-44.9) % Plt Count 168 (140-400) K/mcL Neutrophils # 3.3 (1.6-8.9) K/mcL BMP 06/17/17 03:26 Sodium 142 Potassium 3.9 Chloride 112 H Carbon Dioxide 23 BUN 24 H Creatinine 1.06 Glucose 110 H Calcium 8.1 L - ABG Interpretation ABG results: PT/INR, D-dimer PT 15.7 Seconds (9.4-12.1) H 06/17/17 03:26 Consult Discharge Plan - Plan Referrals: Ashley Wright CNP [Primary Care Provider] - Palliative Quality Palliative Quality: Screen for Code Status: Yes, Screen for Goals of Care: Yes, Screen for Pain: Yes, If Pain Regimen Started, Initiate Bowel Regimen: Yes, Screen for Nausea/Vomitting: Yes
[2017-06-17] MEDS: MetroNIDAZOLE Vaginal Gel VG SCH ×3 (14:32→20:22)
[2017-06-17] MEDS ORDERED: *HR* Warfarin 5 MG TABLET PO ONE (18:00)
[2017-06-17] MEDS ORDERED: *HR* Morphine Sulfate SR (12 HR) 15 MG TABLET.ER PO SCH (18:00)
[2017-06-17] MEDS ORDERED: Warfarin perPT PO PRN (18:00)
[2017-06-17] MEDS ORDERED: Topiramate 25 MG TABLET PO SCH (21:00)
[2017-06-17 21:09] VITALS: BP 120/83
--- NOTE | 2017-06-22 17:11 | Discharge Summary ---
Date of Encounter: 06/17/16 Time of Encounter: 18:31 - Discharge Diagnosis (1) Urinary tract infection Priority: Primary Status: Acute Comments: Urine is foul-smelling again today. Urine culture is pending. UA yesterday showed moderate leukocyte esterase, 50-100 WBC, many bacteria, positive nitrites , red in color, and turbid. Continue IV Zosyn and IVF at 75ml/hour\ Urology on board, as well. Culture is pending. Qualifiers: Urinary tract infection type: site unspecified Hematuria presence: without hematuria Qualified Code(s): N39.0 - Urinary tract infection, site not specified (2) Anemia Priority: Secondary Status: Chronic Comments: Pt had mildly decreased iron level 06/2016. She does not appear to be taking any supplementation. Pt is also receiving radiation therapy. Hbg today is 10.7 which appears to be baseline for her. Continue to monitor. Qualifiers: Anemia type: unspecified type Qualified Code(s): D64.9 - Anemia, unspecified (3) Urinary catheter complication Priority: Secondary Status: Acute Comments: Catheter was placed by urology while pt was in surgery. They are on board and have seen her today and will reassess need for replacing cath today. Qualifiers: Encounter type: initial encounter Qualified Code(s): T83.9XXA - Unspecified complication of genitourinary prosthetic device, implant and graft, initial encounter (4) Atrial fibrillation Priority: Secondary Status: Acute Comments: Pt remains in a-fib. Continue Metoprolol bid and Coumadin. Continue to monitor pt and rate. Qualifiers: Atrial fibrillation type: chronic Qualified Code(s): I48.2 - Chronic atrial fibrillation (5) Anticoagulated on Coumadin Priority: Secondary Status: Acute Comments: INR subtherapeutic today at 1.4. Pharmacy to dose. (6) History of pulmonary embolism Priority: Secondary Status: Acute Comments: Plan as above. (7) Surgical wound, non healing Priority: Secondary Status: Acute Comments: Pt has wound to L groin from lymph node surgery. Wound care is following. Wound is open and draining. Fluid contains creatinine. Urology is on board and will reassess later today for need for cath placement. Qualifiers: Encounter type: initial encounter Qualified Code(s): T81.89XA - Other complications of procedures, not elsewhere classified, initial encounter (8) Vulvar cancer Priority: Secondary Status: Chronic Comments: Diagnosed in February. Pt has decided to not continue chemotherapy. Currently undergoing radiation treatments. REports constant burning pain to vulva and urethra. Medication has been changed and I will continue to assess and adjust medications as needed. (9) DVT prophylaxis Priority: Secondary Status: Acute - Discharge Medications Home Medications: Levothyroxine [Synthroid] 150 mcg PO QAM 04/25/17 [History] Topiramate [Topamax] 25 mg PO HS 04/25/17 [History] Ondansetron [Zofran] 4 mg PO Q8HR PRN #90 tablet 05/02/17 [Rx] Prochlorperazine Maleate [Compazine] 10 mg PO Q8HR PRN #90 tablet 05/02/17 [Rx] ALPRAZolam [Xanax 0.25 MG Tablet] 0.25 mg PO BID #7 tab 06/14/17 [Rx] Metoprolol [Lopressor] 100 mg PO BID #60 tab 06/14/17 [Rx] Omeprazole [PriLOSEC] 20 mg PO DAILY@0630 #30 06/14/17 [Rx] Warfarin [Coumadin] 2.5 mg PO 1800 #30 tablet 06/14/17 [Rx] Oxycodone HCl [Oxaydo] 5 - 10 mg PO Q4-6H PRN #120 tablet.orl 06/20/17 [Rx] Allergies/Adverse Reactions: Allergies No Known Allergies Allergy (Verified 06/20/17 10:46) Date of admission: 06/16/17 23:33 Primary care physician: Ashley Wright, Discharging clinician: Barbra Kaye Anticipated date of discharge: 06/22/17 - Patient Status Disposition: Transfer Intermediate Care Fac Functional capacity at discharge: uses cane/walker Overall status at discharge: patient is not back to baseline - Discharge Instructions Follow Up With: Ashley Wright CNP [Primary Care Provider] - Additional Instructions: Pt transferred to [place] to the care of Dr. Nancy Mahan through the [facility] course: Ms. Holt is a 72 year old female with past medical history of A. fib, hypothyroidism, PE, [place] high, vulvar cancer, A. fib anticoagulated on Coumadin. She reported to the emergency department on date of admission with a leaking Bernal catheter. She reports constant pain due to her cancer and worse than her normal baseline, however she reports that she is not at her home doses of pain medication since she has been the emergency department patient also reports that she has an open surgical wound in the left groin from her lymphadenectomy which continuously drains fluid. She denies chest pain, palpitations, shortness of breath, headache, lightheadedness, nausea, vomiting, diarrhea. She reports bilateral lower extremity edema since the time of her surgery. You have a while in the hospital was consistent with UTI. Previous catheter was placed when she was under anesthesia for surgery at [place] for her vulvar cancer. Wound culture returned that fluid has creatinine. On 06/18, catheter was replaced by Dr. Ander Marcial using a 14-Sudanese Silastic. A large volume of cloudy urine was returned and her old 12-Sudanese catheter was encrusted. Patient was also seen by palliative care while she was here. They discussed his plan of care. Due to chronic pain in vulvar area, patient has not been performing adequate. Care and the area was red, painful, and excoriated. Pain medication, coronary edema, and sitz baths were discussed by palliative care. Oncology saw the patient while she was here. It was discussed that her chemoradiation treatments would be continued while she was inpatient to avoid prolonged pauses since her cancer was an early stage. She had approximately 3 weeks left with her chemoradiation treatments. She had decided previously to discontinue chemotherapy and continue only radiation. While oncology was seeing her she expressed her decision against receiving radiation therapy while she was inpatient, who will reexamine after being discharged. 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 Murguia, who performed her initial surgery, as well as the hospitalist service. This note was created on 06/22/2017 due to patient being discharged after my departure on 06/17/17. I had forgotten to complete a discharge summary since I left before the patient did. - Time Spent with Patient Total time spent providing and/or coordinating discharge services: - Constitutional Vitals: Temp Pulse Resp BP Pulse Ox 98.2 F 96 16 120/83 97 06/17/17 19:16 06/17/17 19:16 06/17/17 19:16 06/17/17 21:08 06/17/17 19:16 General appearance: Present: cooperative, A&O X 3, pleasant, no acute distress, obese, answers questions appropriately - Head Head exam: Present: normal inspection - Eye Eye exam: Present: normal appearance, conjuntiva pink - ENT ENT exam: Present: mucous membranes moist, normal exam - Neck Neck exam general surgery: Present: normal inspection. Absent: lymphadenopathy , tenderness - Respiratory Respiratory exam: Present: CTAB. Absent: chest wall tenderness, rales, respiratory distress, rhonchi, stridor, wheezes - Cardiovascular Cardiovascular exam: Present: RRR, +S1, +S2. Absent: bradycardia, clicks, diastolic murmur, systolic murmur, tachycardia - GI/Abdominal GI/Abdominal exam: Present: distended, normal bowel sounds, soft. Absent: hepatomegaly, tenderness - Extremities Exam Extremities exam: Present: normal capillary refill, normal inspection, pedal edema, warm, radial pulses palpable and symetrical. Absent: tenderness - Neurological Exam Neurological exam: Present: oriented X3, no focal deficits. Absent: facial droop, speech deficit - Skin Skin exam: Present: dry, normal color, warm. Absent: intact
== END 2017-06-17 21:45 | disposition short-term general hospital (02) | DRG 699 ==
LOC: EMEROO 16:07 → 3BNU 16:07
PROVIDERS: ADMIT Nurse Practitioner Family; ATTEND Nurse Practitioner Family

== ENCOUNTER 2017-07-08 11:28 | Inpatient (IN) ==
[2017-07-08] MEDS ORDERED: 0.9 % Sodium Chloride 1,000 ML IVC ONE (12:14)
[2017-07-08 12:53] LABS: Hemoglobin 8.8 g/dL (11.5-15.4)
[2017-07-08 12:55] LABS: Basophils % 0.1 %; Eosinophils % 0.1 %; Hematocrit 28.6 % (35.3-44.9); Immature Granulocytes % 1.1 % (0-4); Lymphocytes # 0.4 K/mcL (0.6-4.6); Mean Corpuscular HGB Conc 30.8 g/dL (31.6-35.5); Mean Corpuscular Hemoglobin 28.2 pg (28.0-33.3); Mean Corpuscular Volume 91.7 fL (83.0-100.0); Mean Platelet Volume 10.7 fL (9.4-12.4); Monocytes # 0.4 K/mcL (0.0-1.3); Monocytes % 4.9 %; Red Blood Count 3.12 M/mcL (3.82-4.97); Red Cell Distribution Width 18.3 % (11.5-14.5); Segmented Neutrophils % 88.8 %
[2017-07-08 13:00] LABS: Neutrophils # 6.8 K/mcL (1.6-8.9); Platelet Count 80 K/mcL (140-400)
[2017-07-08 13:08] LABS: Calcium 8.2 mg/dL (8.6-10.8); Potassium 3.3 mEq/L (3.5-4.5)
[2017-07-08 13:22] LABS: Anisocytosis 1+ (Not Present); Platelet Estimate Slight Decrease (Normal)
[2017-07-08] MEDS ORDERED: *HR* Heparin 5,000 UNIT/ML VIAL IVP ONE (15:46)
[2017-07-08] MEDS ORDERED: *HR* Heparin 5,000 UNIT/ML VIAL IVP PRN (15:46)
[2017-07-08] MEDS: 0.9 % Sodium Chloride 1,000 ML IVC SCH (16:12)
[2017-07-08] MEDS ORDERED: *HR* OxyCODONE Immed Rel 5 MG TABLET PO PRN (16:49)
[2017-07-08] MEDS ORDERED: Naloxone 0.4 MG/ML INJ IVP PRN (16:51)
--- NOTE | 2017-07-08 17:14 | Internal Med History&Physical ---
<Malik Mccrary - Last Filed: 07/08/17 18:23> Date of Encounter: 07/08/17 Time of Encounter: 17:04 Assessment and Plan (1) Pulmonary embolism Current visit: Yes Status: Acute Presented to the emergency department today with shortness of breath 1 week that is rapidly progressing beginning this morning. She has vulvar cancer and history of a recent PE. I highly suspect she is a diagnosis of pulmonary embolus. VQ scan per Dr. Jay Hoang radiology reveals pulmonary emboli in the right upper lobe, mid right lung, and left lung base. Heparin drip protocol initiated; platelet count at this time is 80,000; hematology contacted in the ED as per ED physician and indicates heparin drip as appropriate at this time CBC with differential in the a.m. Trending troponins to rule out cardiac cause Bedrest Falls precautions Continuous telemetry Continuous SPO2 Oxygen therapy per nasal cannula when necessary to maintain SPO2 greater than 92 % Qualifiers: Pulmonary embolism type: other Chronicity: acute Acute cor pulmonale presence: without acute cor pulmonale Qualified Code(s): I26.99 - Other pulmonary embolism without acute cor pulmonale (2) Atrial fibrillation with rapid ventricular response Current visit: Yes Status: Acute A. fib RVR upon arrival to the emergency department. Patient does have a history of A. fib and is on Toprol and metoprolol for control. Takes xarelto. However, will stop xarelto and place patient on heparin drip. Continuous telemetry Continuous SPO2 Heparin drip protocol initiated 10 mg Cardizem IV push 1 (3) JOSE (acute kidney injury) Current visit: Yes Status: Acute Metabolic panel revealed acute kidney injury with creatinine of 1.76. Plan is to start IVF 0.9 normal saline at 100 mL per hour. Recheck CMP in the morning. Avoid nephrotoxic agents (4) Anemia Current visit: Yes Status: Chronic History of anemia. It appears that the patient has been chronically anemic. However, this may be contributing to her shortness of breath denies any noticeable bleeding, hematuria, hematemesis, melena. Continue to monitor for bleeding. CBC in the morning, serum iron, serum ferritin, B12, folate ordered. Will treat anemia depending upon results. Qualifiers: Anemia type: unspecified type Qualified Code(s): D64.9 - Anemia, unspecified (5) Thrombocytopenia Current visit: Yes Status: Acute Thrombocytopenia with platelets resulting at 80,000. Patient placed on falls precautions, bed rest with bedside commode assists. She is in A. fib, and has highly suspicious for pulmonary embolism, so she has been placed on heparin at this time. Hematology was consulted in the emergency department per the ED doctor and confirmed that heparin is appropriate in this situation due to history of PE and current diagnosis of vulvar cancer. CBC with differential in the morning. (6) DVT prophylaxis Current visit: Yes Status: Acute High risk for DVT due to immobility, cancer, atrial fib. Patient on heparin drip due to high suspicion of pulmonary embolism Internal Medicine - H&P: HPI Chief complaint: Shortness of breath Admitted From: Home Plans for Post Hospital Care: Home History of present illness: Ms. Holt is a 72 year old female with a PMH of HTN, hypothyroidism, arthritis , atrial fibrillation, vulvar cancer, for which she is receiving chemotherapy and radiation. All information obtained from chart report and patient interview. She presented to [facility] from her oncology/radiology appointment this morning with increased shortness of breath which began late last week, however, she noticed this morning that was rapidly progressing. Patient complains of increasing fatigue, increasing weakness, and dyspnea upon exertion which improves with rest. She does have a recent history of pulmonary embolism and a diagnosis of cancer, as such there is high suspicion for PE. Additionally is noted that she is anemic and thrombocytopenic, H&H 8.8/28.6 and PLT 80. Denies any CP, cough, fevers, Noticeable bleeding in urine or stool. Admits to arrhythmia, new BLE swelling R>L with new LLE redness. Due to high suspicion of PE she was placed on heparin drip in the ED. Chest x-ray revealed pulmonary vascular congestion. Still awaiting VQ scan. Additionally, as noted the patient has an acute kidney injury,cR 1.76. She received a 1 L fluid bolus in the emergency department. She is being admitted to [facility] for further workup and evaluation Past Med Surg Social Fam HX - Past Medical History Medical history: atrial fibrillation, cancer, hypertension, pulmonary embolus, thyroid disease Psychiatric history: anxiety - Past Surgical History Surgical History: cancer surgery, hysterectomy, knee replacement (Bilateral), orthopedic, other (Right heel surgery) - Social History Smoking Status: Never smoker Smokeless Tobacco Status: No Alcohol use: none Drug use: none - Family History Father Hx Family Cardiac Disorders: Yes (OK) Hx Family Respiratory Disorders: No Hx Family Cancer: Yes (prostate) Hx Family GI Disorders: No Hx Family Endocrine Disorder: Yes (DM) Hx Family Neuromuscular Disorders: No Hx Family Neurologic Disorders: No Hx Family HEENT Disorders: No Hx Family Autoimmune Disorders: No Mother Race: Family Member Ethnicity: Non- Hx Family Neuromuscular Disorders: Yes Internal Medicine - H&P: Meds Levothyroxine [Synthroid] 150 mcg PO QAM 04/25/17 [History] Topiramate [Topamax] 25 mg PO HS 04/25/17 [History] Prochlorperazine Maleate [Compazine] 10 mg PO Q8HR PRN #90 tablet 05/02/17 [Rx] Metoprolol [Lopressor] 100 mg PO BID #60 tab 06/14/17 [Rx] Oxycodone HCl [Oxaydo] 5 - 10 mg PO Q4-6H PRN #120 tablet.orl 06/20/17 [Rx] Rivaroxaban [Xarelto] 20 mg PO DAILY #30 tablet 07/01/17 [Rx] Atenolol [Tenormin] 50 mg PO DAILY 07/08/17 [History] Omeprazole [PriLOSEC] 20 mg PO DAILY PRN 07/08/17 [History] 3 Allergy/AdvReac Type Severity Reaction Status Date / Time No Known Allergies Allergy Verified 07/08/17 11:47 All Systems PM: A 10-system review of systems was performed and is negative for pertinent findings except as documented above in the HPI. - Constitutional Constitutional: fatigue, weakness, no chills, no fever(s), no night sweats, no weight loss - EENT Eyes: no change in vision, no discharge, no pain, no photophobia Ears: no ear discharge, no ear pain, no tinnitus Nose, mouth and throat: no dysphagia, no nasal discharge, no neck pain, no sore throat - Cardiovascular Cardiovascular ROS IM: dyspnea on exertion (Reports dyspnea on exertion getting worse over the last week, however, rapidly progressing's morning, improves with rest), irregular heart rhythm (History of A. fib, admits to feeling like her heart rate is faster than normal), no chest pain, no diaphoresis, no dyspnea, no lightheadedness, no palpitations, no syncope - Respiratory Respiratory: dyspnea on exertion, no cough, no dyspnea, no wheezing, no pain on inspiration, no chest congestion, no excessive phlegm production - Gastrointestinal Gastrointestinal: no abdominal pain, no diarrhea, no hematemesis, no hematochezia, no melena, no nausea, no vomiting - Genitourinary Genitourinary: no change in urinary stream, no difficulty urinating, no difficulty voiding, no dysuria, no flank pain, no hematuria, no nocturia - Musculoskeletal Musculoskeletal ROS IM: numbness (Admits to new intermittent numbness and tingling to bilateral hands), tingling, no limited range of motion Additional comments: Admits to new Bilateral lower extremity swelling, right greater than left. Left lower extremity erythematous but nontender. - Integumentary Integumentary IM: no pruritus, no rash, no unusual bruising - Neurological Neurological ROS: no confusion, no convulsions, no focal weakness, no numbness, no tingling, no tremor(s) - Hematologic/Lymphatic Hematologic/Lymphatic: no easy bruising - Constitutional Vitals: Temp Pulse Resp BP Pulse Ox 98.3 F 105 16 111/72 100 07/08/17 12:17 07/08/17 14:57 07/08/17 14:57 07/08/17 14:57 07/08/17 14:57 General appearance: Present: A&O X 3 - Head Head exam: Present: atraumatic, normocephalic - Eye Eye exam: Present: EOMI, PERRL, conjuntiva pink, sclera anicteric Pupils: Present: PERRL - Neck Neck exam general surgery: Present: supple, trachea midline. Absent: lymphadenopathy - Respiratory Respiratory exam: Present: CTAB. Absent: accessory muscle use, rales, rhonchi, wheezes - Cardiovascular Cardiovascular exam: Present: irregular rhythm, +S1, +S2. Absent: diastolic murmur, gallop, rubs, systolic murmur - GI/Abdominal GI/Abdominal exam: Present: normal bowel sounds, soft, no peritoneal signs. Absent: distended, tenderness - Extremities Exam Extremities exam: Present: normal capillary refill, pedal edema, radial pulses palpable and symmetrical. Absent: calf tenderness, cyanotic Additional comments: Upon examination it was found that bilateral lower shoulders are both swollen. Right lower extremity greater than left lower extremity. Right lower extremity was edematous and cool, and without ecchymosis. Left lower extremity was edematous and erythematous, however she denies any tenderness to palpation - Neurological Exam Neurological exam: Present: CN II-XII intact, oriented X3, no focal deficits. Absent: pronater drift, facial droop, speech deficit - Skin Skin exam: Present: dry, intact. Absent: petechiae Internal Med - H&P Results - Labs CBC & Chem 7: 07/08/17 12:39 07/08/17 12:39 - Diagnostic Studies Chest x-ray Status: image reviewed by me Additional comments: Exhibits pulmonary vascular congestion. However, it appears as the patient has chronic pulmonary vascular congestion due to pulmonary hypertension. <Kristin Caldwell - Last Filed: 07/08/17 18:36> Date of Encounter: 07/08/17 Internal Medicine - H&P: HPI History of present illness: Ms. Holt is a 72 year old female All Systems PM: A 10-system review of systems was performed and is negative for pertinent findings except as documented above in the HPI. - Constitutional Vitals: Temp Pulse Resp BP Pulse Ox 98.3 F 105 16 115/69 99 07/08/17 12:17 07/08/17 16:13 07/08/17 17:39 07/08/17 17:39 07/08/17 16:13 Internal Med - H&P Results - Labs CBC & Chem 7: 07/08/17 12:39 07/08/17 12:39 - Attending Attestation Pt independently seen and examined. Admitted for Acute PE despite being on Xarelto. Discontinue Xarelto and start Heparin gtt. Anticogulation and thrombocytopenia discussed with the airport duty manager by ED physician, in agreement with starting heparin gtt given platelet count. Also found to have Afib with rvr. Tele monitoring, BB, IV cardizem IVP x 1 dose. Will closely monitor. Case discussed with the AISLINN Mccrary, I agree with his documented findings, assessment, and plan.
[2017-07-08 17:19] LABS: INR 1.7; Prothrombin Time 18.8 Seconds (9.4-12.1)
[2017-07-08 17:22] LABS: Activated Partial Thrombo Time 28.7 Seconds (26.0-36.0)
--- NOTE | 2017-07-08 17:30 | Emergency Department Note ---
Disposition Clinical Impression: Tachycardia, Hypoxia Disposition: Admitted As Inpatient Condition: Good General Adult HPI - General Chief complaint: ED Shortness of Breath/Dyspnea Stated complaint: shortness of breath Time Seen by Provider: 07/08/17 17:27 Source: patient Limitations: no limitations Nursing Notes Reviewed: Yes Vital Signs Reviewed: Yes - History of Present Illness HPI Narrative: 72-year-old female who presents with concern for dyspnea. She was sent from [facility]. She was found to be tachycardic and hypoxic at [facility] with history of pulmonary embolism currently on anticoagulation with the roll to. She is not experiencing chest pain. Her hypoxia improved with submental oxygen. She does have ongoing tachycardia. There is concern for new acute kidney injury. She was sent for further evaluation of possible pulmonary embolism. Pain Scale: 0 - Related Data Home Medications Medication Instructions Recorded Confirmed Levothyroxine [Synthroid] 150 mcg PO QAM 04/25/17 07/08/17 Topiramate [Topamax] 25 mg PO HS 04/25/17 07/08/17 Atenolol [Tenormin] 50 mg PO DAILY 07/08/17 07/08/17 Omeprazole [PriLOSEC] 20 mg PO DAILY PRN 07/08/17 07/08/17 Previous Rx's Medication Instructions Recorded Prochlorperazine Maleate 10 mg PO Q8HR PRN #90 tablet 05/02/17 [Compazine] Metoprolol [Lopressor] 100 mg PO BID #60 tab 06/14/17 Oxycodone HCl [Oxaydo] 5 - 10 mg PO Q4-6H PRN #120 06/20/17 tablet.orl Rivaroxaban [Xarelto] 20 mg PO DAILY #30 tablet 07/01/17 Allergies Allergy/AdvReac Type Severity Reaction Status Date / Time No Known Allergies Allergy Verified 07/08/17 11:47 All systems ED: reviewed and negative except as stated. Past Medical History - Past Medical History Medical history: Reports: atrial fibrillation, cancer, hypertension, pulmonary embolus, thyroid disease Surgical history: Reports: cancer surgery, hysterectomy, knee replacement ( Bilateral), orthopedic, other (Right heel surgery) Psychiatric history: Reports: anxiety - Social History Smoking Status: Never smoker Smokeless Tobacco Status: No Alcohol use: Reports: none Drug use: Reports: none Physical Exam EKG shows atrial fibrillation with a rate of 128 bpm. Nonspecific abnormal ECG. Atrial fibrillation with history of cancer as well as pulmonary embolism. Currently under alto. We will proceed with admission and anticoagulation empirically with heparin due to creatinine clearance. Additionally I did discuss the case with the on-call field operations farm manager who was okay with underlying thrombocytopenia and concurrently initiating heparin infusion. Discussed case with the hospitalist team. Plan to admit for VQ scan. This was ordered at the request of the hospitalist team. - General Limitations: no limitations General appearance: alert, in no apparent distress Course Vital Signs Temperature 97.5 F L 07/08/17 11:45 Pulse Rate 78 07/08/17 11:45 Respiratory Rate 16 07/08/17 11:45 Blood Pressure 96/56 07/08/17 11:45 O2 Sat by Pulse Oximetry 97 07/08/17 11:45 Temperature 98.3 F 07/08/17 12:17 Pulse Rate 105 07/08/17 16:13 Respiratory Rate 16 07/08/17 16:13 Blood Pressure 115/75 07/08/17 16:13 O2 Sat by Pulse Oximetry 99 07/08/17 16:13 Oxygen Delivery Oxygen Delivery Room Air Medical Decision Making - Medical Records Medical records reviewed: Yes I reviewed the patient's medical records. - Lab Data Lab results reviewed: Yes I reviewed the patient's lab results. Result diagrams: 07/08/17 12:39 07/08/17 12:39 Lab Results 07/08/17 07/08/17 07/08/17 Range/Units 12:39 12:39 12:39 WBC 7.6 (4.3-11.1) K/mcL RBC 3.12 L (3.82-4.97) M/mcL Hgb 8.8 L (11.5-15.4) g/dL Hct 28.6 L (35.3-44.9) % MCV 91.7 (83.0-100.0) fL MCH 28.2 (28.0-33.3) pg MCHC 30.8 L (31.6-35.5) g/dL RDW 18.3 H (11.5-14.5) % Plt Count 80 L (140-400) K/mcL MPV 10.7 (9.4-12.4) fL Immature Gran % 1.1 (0-4) % Seg Neutrophils % 88.8 % Lymphocytes % 5.0 % Monocytes % 4.9 % Eosinophils % 0.1 % Basophils % 0.1 % Neutrophils # 6.8 (1.6-8.9) K/mcL Lymphocytes # 0.4 L (0.6-4.6) K/mcL Monocytes # 0.4 (0.0-1.3) K/mcL Eosinophils # 0.0 (0.0-0.6) K/mcL Basophils # 0.0 (0.0-0.2) K/mcL Platelet Estimate Slight Decrease L (Normal) Immature Plt Fraction 4.0 (1.1-6.1) % Anisocytosis 1+ A (Not Present) Sodium 140 (136-145) mEq/L Potassium 3.3 L (3.5-4.5) mEq/L Chloride 105 (98-109) mEq/L Carbon Dioxide 27 (19-29) mEq/L BUN 32 H (7-20) mg/dL Creatinine 1.76 H (0.57-1.11) mg/dL Est GFR ( Amer) 34 L (> 60) Est GFR (Non-Af Amer) 28 L (> 60) BUN/Creatinine Ratio 18 (6-26) Glucose 122 H (70-99) mg/dL Calculated Osmolality 298 (280-300) Lactic Acid 1.5 (0.5-2.2) mmol/L Calcium 8.2 L (8.6-10.8) mg/dL Troponin I (0-0.03) ng/mL B-Natriuretic Peptide (0-100) pg/mL 07/08/17 07/08/17 Range/Units 12:39 12:39 WBC (4.3-11.1) K/mcL RBC (3.82-4.97) M/mcL Hgb (11.5-15.4) g/dL Hct (35.3-44.9) % MCV (83.0-100.0) fL MCH (28.0-33.3) pg MCHC (31.6-35.5) g/dL RDW (11.5-14.5) % Plt Count (140-400) K/mcL MPV (9.4-12.4) fL Immature Gran % (0-4) % Seg Neutrophils % % Lymphocytes % % Monocytes % % Eosinophils % % Basophils % % Neutrophils # (1.6-8.9) K/mcL Lymphocytes # (0.6-4.6) K/mcL Monocytes # (0.0-1.3) K/mcL Eosinophils # (0.0-0.6) K/mcL Basophils # (0.0-0.2) K/mcL Platelet Estimate (Normal) Immature Plt Fraction (1.1-6.1) % Anisocytosis (Not Present) Sodium (136-145) mEq/L Potassium (3.5-4.5) mEq/L Chloride (98-109) mEq/L Carbon Dioxide (19-29) mEq/L BUN (7-20) mg/dL Creatinine (0.57-1.11) mg/dL Est GFR ( Amer) (> 60) Est GFR (Non-Af Amer) (> 60) BUN/Creatinine Ratio (6-26) Glucose (70-99) mg/dL Calculated Osmolality (280-300) Lactic Acid (0.5-2.2) mmol/L Calcium (8.6-10.8) mg/dL Troponin I 0.02 (0-0.03) ng/mL B-Natriuretic Peptide 108 H (0-100) pg/mL Critical Care Time Total Critical Care Time: 31 Attestation: Greater then 31 minutes of critical care time was spent resuscitating this acutely ill patient suffering from tachycardia and hypoxia excluding billable procedures.
[2017-07-08] MEDS: Heparin 25,000 UNIT/500 ML D5W 25,000 UNIT/500 ML MLS IVC SCH (18:59)
[2017-07-08] MEDS: Metoprolol 100 MG TABLET PO SCH (20:57)
[2017-07-08] MEDS: Topiramate 25 MG TABLET PO SCH (20:57)
[2017-07-09 02:33] LABS: Iron 31 mcg/dL (50-170)
[2017-07-09 02:35] LABS: Basophils % 0.1 %; Eosinophils % 0.3 %; Hematocrit 26.7 % (35.3-44.9); Hemoglobin 8.4 g/dL (11.5-15.4); Immature Granulocytes % 0.9 % (0-4); Lymphocytes # 0.4 K/mcL (0.6-4.6); Lymphocytes % 6.1 %; Mean Corpuscular HGB Conc 31.5 g/dL (31.6-35.5); Mean Corpuscular Hemoglobin 28.8 pg (28.0-33.3); Mean Corpuscular Volume 91.4 fL (83.0-100.0); Mean Platelet Volume 10.9 fL (9.4-12.4); Monocytes # 0.3 K/mcL (0.0-1.3); Red Blood Count 2.92 M/mcL (3.82-4.97); Red Cell Distribution Width 18.6 % (11.5-14.5); Segmented Neutrophils % 87.6 %
[2017-07-09 02:37] LABS: Platelet Count 78 K/mcL (140-400)
[2017-07-09 02:54] LABS: Ferritin 665 ng/ml (5-204)
[2017-07-09] MEDS: *HR* Heparin 5,000 UNIT/ML VIAL IVP PRN ×2 (02:57→17:09)
[2017-07-09 04:27] LABS: Folate 7.2 ng/mL (7.0-31.4)
--- NOTE | 2017-07-09 06:23 | Electrocardiograph Report ---
[place] [facility] Test Date: 2017-07-08 Pat Name: Mirtha Holt Department: 104 Room: 2A36 Gender: F Mechanical Specialist: JESSIE : 1945 Requested By: José Miguel Hernández Order Number: [id number] Reading MD: Nir Barr MD Measurements Intervals [place] Rate: 128 P: [place]: 0 QRS: 12 QRSD: 94 T: 37 QT: 294 QTc: 370 Interpretive Statements ATRIAL FIBRILLATION WITH RAPID VENTRICULAR RESPONSE NONSPECIFIC ST & T-WAVE ABNORMALITY ABNORMAL RHYTHM ECG Electronically Signed On 07-09-2017 6:21:10 EDT by Nir Barr MD
[2017-07-09] MEDS: 0.9 % Sodium Chloride 1,000 ML IVC SCH ×3 (08:38→23:16)
[2017-07-09] MEDS: Metoprolol 100 MG TABLET PO SCH ×2 (08:42→20:44)
[2017-07-09 10:09] LABS: Calcium 8.2 mg/dL (8.6-10.8); Potassium 3.1 mEq/L (3.5-4.5)
--- NOTE | 2017-07-09 10:16 | Internal Med Progress Note ---
<Peter Stevens - Last Filed: 07/09/17 11:25> Date of Encounter: 07/09/17 Time of Encounter: 10:16 - Assessment and plan (1) Pulmonary embolism Current Visit: Yes Status: Acute Assessment and plan: Recent hx of PE, progressing SOB, tachy on admission, new left lower leg venostasis, >48 yo, vulvar cancer history. V/Q scan cannot distinguish if new/ old PE. CXR - pulm artery dilation, pulm vascular congestion. - continue heparin, pharm dose for bridging - ct telemetry - ct SpO2, goal >92% Qualifiers: Pulmonary embolism type: other Chronicity: acute Acute cor pulmonale presence: without acute cor pulmonale Qualified Code(s): I26.99 - Other pulmonary embolism without acute cor pulmonale (2) Atrial fibrillation with rapid ventricular response Current Visit: Yes Status: Acute Assessment and plan: A fib RVR on admission w/ hx of afib. 10 mg Cardizem IV push x 1 in Ed. - continue metoprolol for rate control - home xarelto held due to placement on heparin - consider increasing Rx if HR >100 (3) JOSE (acute kidney injury) Current Visit: Yes Status: Acute Assessment and plan: Cr on admission 1.76. IVF NS. - continue to monitor Cr - continue IVF - hold nephrotoxins. (4) DVT prophylaxis Current Visit: Yes Status: Acute Assessment and plan: continue heparin (5) Anemia Current Visit: Yes Status: Chronic Assessment and plan: Patient has hisotr of chronic anemia. No visible source of bleeding. hgb on admission 8.4 - further workup if hgb drops or becomes symptomatic Qualifiers: Anemia type: unspecified type Qualified Code(s): D64.9 - Anemia, unspecified (6) Thrombocytopenia Current Visit: Yes Status: Acute Assessment and plan: Platelets on admission 80k. - fall precautions - Plt today 78k, will follow closely - due to PE, continue heparin - Subjective Interval history: Ms Holt is 72 yo F on day 1 of admission 2/2 progressing SOB for the last week with suspicion of PE w/ hx recent PE, afib, HTN, hypothyroidism, arthritis , and vulvar cancer on chemotherapy and radiatio. Patient today states that she feels good with no events overnight. Today patient denies SOB, CP, n/v/f/c. - Constitutional Vitals: Temp Pulse Resp BP Pulse Ox 97.8 F 97 17 116/83 99 07/09/17 07:37 07/09/17 07:37 07/09/17 07:37 07/09/17 07:37 07/09/17 07:37 General appearance: Present: A&O X 3 - Head Head exam: Present: atraumatic, normocephalic - Respiratory Respiratory exam: Present: CTAB. Absent: accessory muscle use, rales, rhonchi, wheezes - Cardiovascular Cardiovascular exam: Present: RRR, +S1, +S2. Absent: diastolic murmur, gallop, rubs, systolic murmur - GI/Abdominal GI/Abdominal exam: Present: normal bowel sounds, soft, no peritoneal signs. Absent: distended, tenderness - Expanded Lower Extremities Exam Lower Leg exam: Present: swelling (3+ pitting bilateral. Left pretibial has venostasis that patient says started about the same time as onset of symptoms) Internal Medicine: Result - Labs CBC & Chem 7: 07/09/17 01:41 07/09/17 08:58 Labs: Short CBC 07/09/17 Range/Units 01:41 WBC 6.8 (4.3-11.1) K/mcL Hgb 8.4 L (11.5-15.4) g/dL Hct 26.7 L (35.3-44.9) % Plt Count 78 L (140-400) K/mcL Neutrophils # 6.0 (1.6-8.9) K/mcL BMP 07/09/17 08:58 Sodium 141 Potassium 3.1 L Chloride 105 Carbon Dioxide 26 BUN 32 H Creatinine 1.58 H Glucose 141 H Calcium 8.2 L Cardiac Enzymes 07/08/17 07/09/17 Range/Units 18:13 01:41 Troponin I 0.03 0.02 (0-0.03) ng/mL - ABG Interpretation ABG results: PT/INR, D-dimer PT 18.8 Seconds (9.4-12.1) H 07/08/17 16:47 Consult Discharge Plan - Plan Referrals: Ashley Wright, COUNTERINTELLIGENCE ANALYST [Primary Care Provider] - <Hudson Wheeler - Last Filed: 07/09/17 18:12> Date of Encounter: 07/09/17 - Constitutional Vitals: Temp Pulse Resp BP Pulse Ox 97.8 F 83 16 113/76 98 07/09/17 16:53 07/09/17 16:53 07/09/17 16:53 07/09/17 16:53 07/09/17 16:53 Internal Medicine: Result - Labs CBC & Chem 7: 07/09/17 01:41 07/09/17 08:58 Labs: Short CBC 07/09/17 Range/Units 01:41 WBC 6.8 (4.3-11.1) K/mcL Hgb 8.4 L (11.5-15.4) g/dL Hct 26.7 L (35.3-44.9) % Plt Count 78 L (140-400) K/mcL Neutrophils # 6.0 (1.6-8.9) K/mcL BMP 07/09/17 08:58 Sodium 141 Potassium 3.1 L Chloride 105 Carbon Dioxide 26 BUN 32 H Creatinine 1.58 H Glucose 141 H Calcium 8.2 L Cardiac Enzymes 07/08/17 07/09/17 Range/Units 18:13 01:41 Troponin I 0.03 0.02 (0-0.03) ng/mL - ABG Interpretation ABG results: PT/INR, D-dimer PT 18.8 Seconds (9.4-12.1) H 07/08/17 16:47 - Attending Attestation I examined this patient and my medical decision-making was reviewed with the Resident Physician. I agree with the documented findings, disposition and treatment plan as described except to the extent set forth below.
[2017-07-09] MEDS: Heparin 25,000 UNIT/500 ML D5W 25,000 UNIT/500 ML MLS IVC SCH (17:06)
[2017-07-09] MEDS: Topiramate 25 MG TABLET PO SCH (20:44)
[2017-07-10 07:09] LABS: Hemoglobin 7.8 g/dL (11.5-15.4)
[2017-07-10 07:11] LABS: Immature Platelets 4.2 % (1.1-6.1); Mean Corpuscular HGB Conc 31.2 g/dL (31.6-35.5); Mean Corpuscular Hemoglobin 28.4 pg (28.0-33.3); Mean Corpuscular Volume 90.9 fL (83.0-100.0); Mean Platelet Volume 10.4 fL (9.4-12.4); Red Blood Count 2.75 M/mcL (3.82-4.97); Red Cell Distribution Width 18.5 % (11.5-14.5)
[2017-07-10 07:20] LABS: Calcium 7.4 mg/dL (8.6-10.8)
--- NOTE | 2017-07-10 07:20 | Internal Med Progress Note ---
Date of Encounter: 07/10/17 Time of Encounter: 07:20 - Assessment and plan (1) Pulmonary embolism Current Visit: Yes Status: Acute Assessment and plan: Recent hx of PE, progressing SOB, tachy on admission, new left lower leg venostasis, >50 yo, vulvar cancer history. V/Q scan cannot distinguish if new/ old PE. CXR - pulm artery dilation, pulm vascular congestion. - continue heparin, pharm dose for bridging - ct telemetry - ct SpO2, goal >92% Qualifiers: Pulmonary embolism type: other Chronicity: acute Acute cor pulmonale presence: without acute cor pulmonale Qualified Code(s): I26.99 - Other pulmonary embolism without acute cor pulmonale (2) Atrial fibrillation with rapid ventricular response Current Visit: Yes Status: Acute Assessment and plan: A fib RVR on admission w/ hx of afib. 10 mg Cardizem IV push x 1 in Ed. - continue metoprolol for rate control - home xarelto held due to placement on heparin - consider increasing Rx if HR >100 (3) JOSE (acute kidney injury) Current Visit: Yes Status: Acute Assessment and plan: Cr on admission 1.76. IVF NS. - continue to monitor Cr - continue IVF - hold nephrotoxins. (4) DVT prophylaxis Current Visit: Yes Status: Acute Assessment and plan: continue heparin (5) Anemia Current Visit: Yes Status: Chronic Assessment and plan: Patient has hisotr of chronic anemia. No visible source of bleeding. hgb on admission 8.4 - further workup if hgb drops or becomes symptomatic Qualifiers: Anemia type: unspecified type Qualified Code(s): D64.9 - Anemia, unspecified (6) Thrombocytopenia Current Visit: Yes Status: Acute Assessment and plan: Platelets on admission 80k. - fall precautions - Plt today 78k, will follow closely - due to PE, continue heparin - Subjective Interval history: Ms Holt is 72 yo F on day 2 of admission 2/2 progressing SOB for the last week with suspicion of PE w/ hx recent PE, afib, HTN, hypothyroidism, arthritis , and vulvar cancer on chemotherapy and radiatio. Patient today states that she feels good with no events overnight. Today patient denies SOB, CP, n/v/f/c. - Constitutional Vitals: Temp Pulse Resp BP Pulse Ox 97.3 F L 71 18 108/74 99 07/10/17 05:32 07/10/17 05:32 07/10/17 05:32 07/10/17 05:32 07/10/17 05:32 General appearance: Present: A&O X 3 - Respiratory Respiratory exam: Present: CTAB. Absent: accessory muscle use, rales, rhonchi, wheezes - Cardiovascular Cardiovascular exam: Present: RRR, +S1, +S2. Absent: diastolic murmur, gallop, rubs, systolic murmur - GI/Abdominal GI/Abdominal exam: Present: normal bowel sounds, soft, no peritoneal signs. Absent: distended, tenderness - Neurological Exam Neurological exam: Present: alert, oriented X3 - Psychiatric Psychiatric exam: Present: normal affect, normal mood Internal Medicine: Result - Labs CBC & Chem 7: 07/10/17 05:23 07/10/17 05:23 Labs: Short CBC 07/10/17 Range/Units 05:23 WBC 6.2 (4.3-11.1) K/mcL Hgb 7.8 L (11.5-15.4) g/dL Hct 25.0 L (35.3-44.9) % Plt Count 82 L (140-400) K/mcL BMP 07/09/17 08:58 Sodium 141 Potassium 3.1 L Chloride 105 Carbon Dioxide 26 BUN 32 H Creatinine 1.58 H Glucose 141 H Calcium 8.2 L - ABG Interpretation ABG results: PT/INR, D-dimer PT 18.8 Seconds (9.4-12.1) H 07/08/17 16:47 Consult Discharge Plan - Plan Referrals: Ashley Wright CNP [Primary Care Provider] -
[2017-07-10] MEDS: Metoprolol 100 MG TABLET PO SCH (08:10)
--- NOTE | 2017-07-10 10:47 | Discharge Summary ---
<Peter Stevens - Last Filed: 07/10/17 15:12> Date of Encounter: 07/10/17 Time of Encounter: 10:45 - Discharge Diagnosis (1) Pulmonary embolism Priority: Primary Status: Acute Qualifiers: Pulmonary embolism type: other Chronicity: acute Acute cor pulmonale presence: without acute cor pulmonale Qualified Code(s): I26.99 - Other pulmonary embolism without acute cor pulmonale (2) Atrial fibrillation with rapid ventricular response Priority: Secondary Status: Acute (3) JOSE (acute kidney injury) Priority: Secondary Status: Acute (4) DVT prophylaxis Priority: Secondary Status: Acute (5) Anemia Priority: Secondary Status: Chronic Qualifiers: Anemia type: unspecified type Qualified Code(s): D64.9 - Anemia, unspecified (6) Thrombocytopenia Priority: Secondary Status: Acute - Discharge Medications Prescriptions: Enoxaparin [Lovenox] 80 mg SQ Q12HR #60 syr Home Medications: Levothyroxine [Synthroid] 150 mcg PO QAM 04/25/17 [History] Topiramate [Topamax] 25 mg PO HS 04/25/17 [History] Prochlorperazine Maleate [Compazine] 10 mg PO Q8HR PRN #90 tablet 05/02/17 [Rx] Metoprolol [Lopressor] 100 mg PO BID #60 tab 06/14/17 [Rx] Oxycodone HCl [Oxaydo] 5 - 10 mg PO Q4-6H PRN #120 tablet.orl 06/20/17 [Rx] Rivaroxaban [Xarelto] 20 mg PO DAILY #30 tablet 07/01/17 [Rx] Omeprazole [PriLOSEC] 20 mg PO DAILY PRN 07/08/17 [History] Enoxaparin [Lovenox] 80 mg SQ Q12HR #60 syr 07/10/17 [Rx] Allergies/Adverse Reactions: 3 Allergy/AdvReac Type Severity Reaction Status Date / Time No Known Allergies Allergy Verified 07/08/17 11:47 Date of admission: 07/08/17 16:51 Primary care physician: Ashley Wright, - Patient Status Disposition: Home, Self-Care Condition: Good - Discharge Instructions Instructions: Atrial Fibrillation (DC) Follow Up With: Ashley Wright CNP [Primary Care Provider] - 07/17/17 1:00 pm Isaías Kelly, [employer]PRENTICE [Advanced Practice Nurse] - 07/24/17 2:00 pm Forms: ED Satisfaction Letter - Diet and Activity Activity: increase activity as tolerated Hospital course: Ms Holt is 72 yo F on day 2 of admission 2/2 progressing SOB for the last week with suspicion of PE w/ hx recent PE, afib, HTN, hypothyroidism, arthritis , and vulvar cancer on chemotherapy and radiation. Patient was started on heparin and continued on Lovenox. - Time Spent with Patient Total time spent providing and/or coordinating discharge services: - Constitutional Vitals: Temp Pulse Resp BP Pulse Ox 97.8 F 75 16 122/81 100 07/10/17 07:40 07/10/17 07:40 07/10/17 07:40 07/10/17 07:40 07/10/17 07:40 General appearance: Present: A&O X 3 <Hudson Wheeler P - Last Filed: 07/10/17 18:37> Date of Encounter: 07/10/17 Date of admission: 07/08/17 16:51 Primary care physician: Ashley Wright, Hospital course: Ms. Holt is a 72 year old female - Time Spent with Patient Total time spent providing and/or coordinating discharge services: - Constitutional Vitals: Temp Pulse Resp BP Pulse Ox 97.6 F 98 18 151/99 98 07/10/17 17:08 07/10/17 17:08 07/10/17 17:08 07/10/17 17:08 07/10/17 17:08 - Attending Attestation I examined this patient and my medical decision-making was reviewed with the Resident Physician. I agree with the documented findings, disposition and treatment plan as described except to the extent set forth below.
[2017-07-10] MEDS ORDERED: *HR* Enoxaparin 80 MG/0.8 ML SYRINGE SQ SCH (11:15)
[2017-07-10] MEDS: 0.9 % Sodium Chloride 1,000 ML IVC SCH (14:32)
[2017-07-10 17:09] VITALS: BP 151/99
== END 2017-07-10 15:13 | disposition home or self-care (01) | DRG 176 ==
LOC: EMEROO 11:28 → 2ANU 11:28
PROVIDERS: ADMIT Nurse Practitioner; ATTEND Internal Medicine

== ENCOUNTER 2017-10-07 12:53 | Inpatient (IN) ==
[2017-10-07 13:33] LABS: Basophils # 0.1 K/mcL (0.0-0.2); Basophils % 0.8 %; Eosinophils # 0.1 K/mcL (0.0-0.6); Eosinophils % 0.8 %; Hematocrit 34.5 % (35.3-44.9); Hemoglobin 10.5 g/dL (11.5-15.4); Lymphocytes # 2.4 K/mcL (0.6-4.6); Lymphocytes % 23.3 %; Mean Corpuscular HGB Conc 30.4 g/dL (31.6-35.5); Mean Corpuscular Hemoglobin 30.3 pg (28.0-33.3); Mean Corpuscular Volume 99.4 fL (83.0-100.0); Mean Platelet Volume 9.4 fL (9.4-12.4); Monocytes # 0.9 K/mcL (0.0-1.3); Monocytes % 8.3 %; Neutrophils # 6.9 K/mcL (1.6-8.9); Platelet Count 282 K/mcL (140-400); Red Blood Count 3.47 M/mcL (3.82-4.97); Red Cell Distribution Width 14.3 % (11.5-14.5); Segmented Neutrophils % 65.8 %
[2017-10-07 13:35] LABS: INR 1.8; Prothrombin Time 19.5 Seconds (9.4-12.1)
[2017-10-07 13:42] LABS: Calcium 8.6 mg/dL (8.6-10.8); Potassium 4.3 mEq/L (3.5-4.5)
[2017-10-07 14:04] LABS: Thyroid Stimulating Hormone 17.06 mcIU/mL (0.350-4.840)
--- NOTE | 2017-10-07 14:58 | Emergency Department Note ---
Disposition Clinical Impression: Atrial fibrillation Qualifiers: Atrial fibrillation type: unspecified Qualified Code(s): I48.91 - Unspecified atrial fibrillation Disposition: Admitted As Inpatient Condition: Fair Referrals: Ashley Wright CNP [Primary Care Provider] - Forms: ED Satisfaction Letter Time of Disposition: 15:46 Arrhythmia/Palpitations HPI - General Chief Complaint: ED Arrhythmia/Palpitations Stated Complaint: a fib rvr Time Seen by Provider: 10/07/17 12:57 Source: patient Mode of arrival: ambulatory Limitations: language barrier Nursing Notes Reviewed: Yes Vital Signs Reviewed: Yes - History of Present Illness HPI Narrative: 72-year-old female presents to the ED complaining of atrial fibrillation. Patient does have a history of atrial fibrillation is on Xarelto. Patient was recently seen here for A. fib with RVR but was unable to be admitted here due to the hospital being full and she was transferred to [facility]. She was seen there and then discharged home and told to increase both her metoprolol and Cardizem. She was fussy taking her doses twice daily but states that she has been only taking them once daily. She did not know she was supposed to be doing this. She went to her primary care doctor's office today and was seen really did not EKG and no such she was in A. fib with RVR. He sent her here for further evaluation. Patient states she is short of breath. She told me that she does have a history of COPD and said the shortness of breath is normal for she says she always has swelling in her legs. The swelling right now is not abnormal for her. She states that she does have a history of having pulmonary embolism was diagnosed in May and states that they are still there they did not do anything with them other than start her on anticoagulation. Patient states there is been no changes in her breathing. Patient states she is having no symptoms at this time. Says she feels really well. She is not complaining chest pain, abdominal pain, pain with urination, changes in bowel movements, pain or tingling going down the arms or legs, fevers, nausea vomiting , generalized numbness. Patient has no other complaints at this time. She has not been any long car rides increased time sitting no recent surgeries or on hormones. She has no new malignancies. - Related Data Home Medications Medication Instructions Recorded Confirmed Topiramate [Topamax] 25 mg PO HS 04/25/17 10/07/17 Levothyroxine Sodium [Synthroid] 200 mcg PO QAM 10/07/17 10/07/17 Previous Rx's Medication Instructions Recorded Metoprolol [Lopressor] 100 mg PO BID #60 tab 06/14/17 Rivaroxaban [Xarelto] 20 mg PO DAILY #30 tablet 09/24/17 Allergies Allergy/AdvReac Type Severity Reaction Status Date / Time No Known Allergies Allergy Verified 07/08/17 11:47 Review of Systems: 10 point review of systems done and negative unless otherwise stated in history of present illness. All systems ED: reviewed and negative except as stated. Review of Systems: As Per HPI Past Medical History - Past Medical History Attestation: Yes The following information was validated with the patient. Medical history: Reports: atrial fibrillation, cancer, hypertension, pulmonary embolus, thyroid disease Surgical history: Reports: cancer surgery, hysterectomy, knee replacement, orthopedic, other Psychiatric history: Reports: anxiety - Social History Smoking Status: Never smoker Smokeless Tobacco Status: No Alcohol use: Reports: none Drug use: Reports: none Physical Exam - General Limitations: language barrier General appearance: alert, in no apparent distress - Head Head exam: atraumatic, normocephalic, normal inspection - Eye Eye exam: Present: normal appearance, PERRL, EOMI - ENT ENT exam: normal exam, normal oropharynx, mucous membranes moist - Neck Neck exam: Present: normal inspection, full ROM, trachea midline - Chest Chest inspection: Present: normal inspection, symmetric chest wall rise - Respiratory Respiratory exam: Present: normal lung sounds bilaterally - Cardiovascular Cardiovascular exam: Present: tachycardia, irregular rhythm, normal heart sounds - Abdominal Exam Abdominal exam: Present: soft, Non-Tender. Absent: tenderness, distention, guarding, rebound, rigidity - Extremities Exam Extremities exam: Present: normal inspection, full ROM. Absent: tenderness, pedal edema - Neurological Exam Neurological exam: Present: alert, oriented X3 - Skin Skin exam: Present: warm, dry, intact, normal color Course Course Narrative: 72-year-old female present to the ED with A. fib with RVR. She has a history of this and has not been taking her medications. Patient is also short of breath but has history of pulmonary embolism but states that nothing has changed recently as she is not increased shortness of breath she is tachycardic due to her A. fib with RVR because she is not taking her medications correctly. I do not think there is a recently to work her up for pulmonary embolism at this time. Patient does agree with this plan. We will do normal chest pain workup including CBC, BMP, troponin as well as EKG and chest x-ray. We will also give her a 15 mg bolus of Cardizem. If this does not convert her completely we will start her on a Cardizem drip. Patient is okay with this plan was likely disposition is admission to wean her off IV Cardizem back onto oral. Patient's okay with this. Vital Signs Temperature 97.8 F 10/07/17 12:54 Pulse Rate 106 10/07/17 12:54 Respiratory Rate 18 10/07/17 12:54 Blood Pressure 128/74 10/07/17 12:54 O2 Sat by Pulse Oximetry 98 10/07/17 12:54 Temperature 97.8 F 10/07/17 12:54 Pulse Rate 117 10/07/17 15:04 Respiratory Rate 16 10/07/17 15:04 Blood Pressure 137/101 10/07/17 15:04 O2 Sat by Pulse Oximetry 100 10/07/17 15:04 Oxygen Delivery Oxygen Delivery Nasal Cannula Arrhythmia/Palpitations - MDM Narrative Medical decision making narrative: 72 old female presents to the ED for A. fib with RVR. She was sent here from her primary care physician to be evaluated. Patient was recently discharged from [facility] for A. fib with RVR she was supposed to increase her metoprolol and Cardizem doses to twice daily rather than once daily patient states that she has not been doing this and she did not realize that was what she was told to do. She also was increased on her thyroid medication from 175 mg to 200 mg. Patient states she is not having any chest pain or shortness of breath. All patient's labs came back normal as well as her chest x-ray. She has not have an elevated TSH but this is most likely due to her not being controlled and is being treated with her recent increase in dosage of her thyroid medication. She has a history of pulmonary embolisms says that nothing is changed with her breathing she is not having any chest pain she has not had any increase in leg swelling or leg pain. Patient is currently on xarelto. Patient most likely is in A. fib do not taking her medications appropriately. We did give her a 15 mg bolus of Cardizem which did help her feel better and did try and convert her she did lower her heart rate but immediately when she stood up she merely went back and atrial fibrillation. At this time we decided to start a Cardizem drip. Her pressures have been stable at 130/70 being the most recent. Patient needs to be admitted to titrate off her IV Cardizem and get back onto her prescribed dose that she is mostly having to control her atrial fib. Patient is okay with this plan. Patient is admitted to the hospitalist service by Dr. Wheeler. Patient is admitted in stable condition. Chest X-Ray 10/07/17 13:17 IMPRESSION: 1. Airspace opacities in the right lung as described. Findings are concerning for infection in the appropriate clinical setting. Asymmetric edema remains a differential consideration. D/ / 10/07/2017 14:12:43 Kay[facility] Guo [facility] Interpreting Provider: Kayleigh Guo MD - Medical Records Medical records reviewed: Yes I reviewed the patient's medical records. - Lab Data Lab results reviewed: Yes I reviewed the patient's lab results. Result diagrams: 10/07/17 13:09 10/07/17 13:09 Lab Results 10/07/17 10/07/17 10/07/17 Range/Units 13:09 13:09 13:09 WBC 10.5 (4.3-11.1) K/mcL RBC 3.47 L (3.82-4.97) M/mcL Hgb 10.5 L (11.5-15.4) g/dL Hct 34.5 L (35.3-44.9) % MCV 99.4 (83.0-100.0) fL MCH 30.3 (28.0-33.3) pg MCHC 30.4 L (31.6-35.5) g/dL RDW 14.3 (11.5-14.5) % Plt Count 282 (140-400) K/mcL MPV 9.4 (9.4-12.4) fL Immature Gran % 1.0 (0-4) % Seg Neutrophils % 65.8 % Lymphocytes % 23.3 % Monocytes % 8.3 % Eosinophils % 0.8 % Basophils % 0.8 % Neutrophils # 6.9 (1.6-8.9) K/mcL Lymphocytes # 2.4 (0.6-4.6) K/mcL Monocytes # 0.9 (0.0-1.3) K/mcL Eosinophils # 0.1 (0.0-0.6) K/mcL Basophils # 0.1 (0.0-0.2) K/mcL PT 19.5 H (9.4-12.1) Seconds INR 1.8 APTT 36.0 (26.0-36.0) Seconds Sodium 142 (136-145) mEq/L Potassium 4.3 (3.5-4.5) mEq/L Chloride 109 (98-109) mEq/L Carbon Dioxide 25 (19-29) mEq/L BUN 11 (7-20) mg/dL Creatinine 1.20 H (0.57-1.11) mg/dL Est GFR ( Amer) 53 L (> 60) Est GFR (Non-Af Amer) 44 L (> 60) BUN/Creatinine Ratio 9 (6-26) Glucose 104 H (70-99) mg/dL Calculated Osmolality 294 (280-300) Calcium 8.6 (8.6-10.8) mg/dL Troponin I (0-0.03) ng/mL TSH 17.060 H (0.350-4.840) mcIU/mL 10/07/17 Range/Units 13:09 WBC (4.3-11.1) K/mcL RBC (3.82-4.97) M/mcL Hgb (11.5-15.4) g/dL Hct (35.3-44.9) % MCV (83.0-100.0) fL MCH (28.0-33.3) pg MCHC (31.6-35.5) g/dL RDW (11.5-14.5) % Plt Count (140-400) K/mcL MPV (9.4-12.4) fL Immature Gran % (0-4) % Seg Neutrophils % % Lymphocytes % % Monocytes % % Eosinophils % % Basophils % % Neutrophils # (1.6-8.9) K/mcL Lymphocytes # (0.6-4.6) K/mcL Monocytes # (0.0-1.3) K/mcL Eosinophils # (0.0-0.6) K/mcL Basophils # (0.0-0.2) K/mcL PT (9.4-12.1) Seconds INR APTT (26.0-36.0) Seconds Sodium (136-145) mEq/L Potassium (3.5-4.5) mEq/L Chloride (98-109) mEq/L Carbon Dioxide (19-29) mEq/L BUN (7-20) mg/dL Creatinine (0.57-1.11) mg/dL Est GFR ( Amer) (> 60) Est GFR (Non-Af Amer) (> 60) BUN/Creatinine Ratio (6-26) Glucose (70-99) mg/dL Calculated Osmolality (280-300) Calcium (8.6-10.8) mg/dL Troponin I 0.01 (0-0.03) ng/mL TSH (0.350-4.840) mcIU/mL - Radiology Data Radiology results reviewed: Yes I reviewed the patient's radiology results. - EKG Data EKG attestation: Yes I reviewed and interpreted this EKG. EKG results narrative: EKG done at 1303 myself and attending shows atrial fibrillation with RVR at a rate of 124, QRS 74, QTC 367 with a normal axis. There is no acute ST changes, no acute T-wave changes, no signs of any heart strain or hypertrophy, no sign of any heart blocks, no WPW/Brugada syndrome. This is compared with an old EKG done on 07/08/17 which also shows atrial fibrillation and is unchanged. Attestation Statement - Attestation Attestation: I examined this patient and my medical decision-making was reviewed with the Resident Physician. I agree with the documented findings, disposition and treatment plan as described except to the extent set forth below. Patient to ED with A. fib with RVR. Sent in by PCP. Patient was recent admission for the same. She is anticoagulated on Xarelto. She supposedly taken her Cardizem and metoprolol twice a day, but she is only taking it at night. On examination she is in no acute distress. Sitting up in bed. Lungs clear. Heart tachycardic and irregularly irregular. Plan. Cardizem, cardiac workup, and admission.
[2017-10-07] MEDS: dilTIAZem HCl 100 MG in D5% in Water 50 ML IVC SCH (15:55)
[2017-10-07] MEDS ORDERED: *HR* HYDROcodone/Acet 5/325 mg TABLET PO PRN (17:47)
[2017-10-07] MEDS ORDERED: Ondansetron 4 MG/2 ML VIAL IVP PRN (17:47)
[2017-10-07] MEDS ORDERED: Naloxone 0.4 MG/ML INJ IVP PRN (17:47)
[2017-10-07] MEDS ORDERED: Acetaminophen 325 MG TABLET PO PRN (17:47)
--- NOTE | 2017-10-07 18:02 | Internal Med History&Physical ---
<Manpreet Hood - Last Filed: 10/07/17 18:40> Date of Encounter: 10/07/17 Time of Encounter: 16:30 Assessment and Plan (1) Atrial fibrillation Current visit: Yes Status: Acute Acute on chronic paroxysmal atrial fibrillation with RVR. Patient placed on Cardizem drip and ED. Will continue patient Xarelto. Continuous cardiac telemetry. Patient reports mild SOB, so will administer O2 when necessary and SPO2 monitoring when necessary. EKG today shows atrial flutter/tachycardia with RVR, low QRS voltage, and anteroseptal myocardial infarction of indeterminate age. Pt. is at high risk for further morbidity d/t current sx, hx of PE and chronic paroxysmal Afib w/RVR, and risk factors. Inpatient d/t cardizem drip requirement. Qualifiers: Atrial fibrillation type: paroxysmal Qualified Code(s): I48.0 - Paroxysmal atrial fibrillation (2) JOSE (acute kidney injury) Current visit: Yes Status: Acute Acute JOSE. Pt. states that she is monitored by her PCP for renal function. Will use IV fluids judiciously and avoid nephrotoxins. Monitor f/u labs. (3) Anemia Current visit: Yes Status: Acute Acute anemia w/Hgb of 10.5 and Hct of 34.5. Pt. denies hx of anemia or unusual bleeding. Monitor H/H in f/u labs. Qualifiers: Anemia type: unspecified type Qualified Code(s): D64.9 - Anemia, unspecified (4) Pedal edema Current visit: Yes Status: Acute Acute bilateral 2+ pitting pedal edema. Pt. denies dx of CHF or use of diuretics. IVP lasix 20 mg BID for diuresis. 1.5L daily fluid restriction. (5) HTN (hypertension) Current visit: Yes Status: Chronic Hx of chronic HTN. Monitor pt. and VS. Continue pts. Lopressor. Qualifiers: Hypertension type: essential hypertension Qualified Code(s): I10 - Essential (primary) hypertension (6) Pulmonary embolism Current visit: Yes Status: Chronic Hx of PE that pt. states was diagnosed three months ago. Pt. placed on Xarelto for anticoagulation at the time. Will continue Xarelto and monitor pt. for signs of SOB/dyspnea. Qualifiers: Pulmonary embolism type: other Chronicity: acute Acute cor pulmonale presence: without acute cor pulmonale Qualified Code(s): I26.99 - Other pulmonary embolism without acute cor pulmonale (7) Hypothyroidism Current visit: Yes Status: Chronic Hx chronic hypothyroidism. Will hold pts. Synthroid for now d/t TSH level of 17.060. Monitor f/u labs. Qualifiers: Hypothyroidism type: unspecified Qualified Code(s): E03.9 - Hypothyroidism , unspecified (8) DVT prophylaxis Current visit: Yes Status: Acute Continue pts. Xarelto for DVT prophylaxis. Monitor pt. for signs of bleeding. Internal Medicine - H&P: HPI Chief complaint: Heart palpitations/Arrhythmia Admitted From: Emergency Dept Plans for Post Hospital Care: Home History of present illness: Ms. Holt is a 72 year old female with medical hx of paroxysmal atrial fibrillation, cancer, hypertension, pulmonary embolus diagnosed 3 months ago, and thyroid disease presents from ED with chief complaint heart palpitations and arrhythmia that began this morning. Patient was at PCPs today and found to be in atrial fibrillation with RVR and sent to ED. Patient also reports shortness of breath and bilateral pedal edema that is chronic. Patient denies history of CHF. Patient placed on Xarelto after diagnosis of PE 3 months ago. Patient denies recent illness, fever, chills, nausea, vomiting, abdominal pain, chest pain, changes in vision, unusual bleeding, diarrhea, constipation, headache, dizziness, lightheadedness, pre-syncope, or syncope. Past Med Surg Social Fam HX - Past Medical History Source: patient, old records reviewed Medical history: atrial fibrillation, cancer, hypertension, pulmonary embolus, thyroid disease Psychiatric history: anxiety - Past Surgical History Surgical History: cancer surgery, hysterectomy (Total), knee replacement ( Bilateral), orthopedic, other (Carpal tunnel bilaterally) - Social History Smoking Status: Never smoker Smokeless Tobacco Status: No Alcohol use: none Drug use: none Current living situation: Home Activity Level: Independent ambulation Recent Out of Country Travel Within the Last 8 Weeks: No Exposure or Possible Exposure to Illness During Travel: No - Family History Father Race: Family Member Ethnicity: Non- Living Status: Age at : 72 Cause of : Prostate cancer Hx Family Cardiac Disorders: Yes (CAD, HTN) Hx Family Cancer: Yes (Prostate) Hx Family Endocrine Disorder: Yes (DM) Mother Race: Family Member Ethnicity: Non- Living Status: Age at : 74 Cause of : Old age Hx Family Cardiac Disorders: Yes (CAD) Hx Family Endocrine Disorder: Yes (DM) Hx Family Neuromuscular Disorders: Yes Brother Race: Family Member Ethnicity: Non- Living Status: Still Living Hx Family Endocrine Disorder: Yes (DM) Sister Race: Family Member Ethnicity: Non- Living Status: Age at : 45 Cause of : Lung disease Hx Family Respiratory Disorders: Yes (Lung disease) Internal Medicine - H&P: Meds Topiramate [Topamax] 25 mg PO HS 04/25/17 [History] Metoprolol [Lopressor] 100 mg PO BID #60 tab 06/14/17 [Rx] Rivaroxaban [Xarelto] 20 mg PO DAILY #30 tablet 09/24/17 [Rx] Levothyroxine Sodium [Synthroid] 200 mcg PO QAM 10/07/17 [History] 3 Allergy/AdvReac Type Severity Reaction Status Date / Time No Known Allergies Allergy Verified 07/08/17 11:47 All Systems PM: A 10-system review of systems was performed and is negative for pertinent findings except as documented above in the HPI. - Constitutional Constitutional: no chills, no fever(s), no night sweats - EENT Eyes: no change in vision, no discharge, no pain, no photophobia Ears: no ear discharge, no ear pain, no tinnitus Nose, mouth and throat: no dysphagia, no nasal discharge, no neck pain, no sore throat - Breasts Breasts: as per HPI - Cardiovascular Cardiovascular ROS IM: as per HPI, dyspnea, dyspnea on exertion, irregular heart rhythm, palpitations - Respiratory Respiratory: as per HPI, dyspnea, dyspnea on exertion - Gastrointestinal Gastrointestinal: no abdominal pain, no diarrhea, no hematemesis, no hematochezia, no melena, no nausea, no vomiting - Genitourinary Genitourinary: no change in urinary stream, no dysuria, no flank pain, no hematuria Menstruation: as per HPI, post hysterectomy (Total) - Musculoskeletal Musculoskeletal ROS IM: no numbness, no tingling - Integumentary Integumentary IM: no rash, no unusual bruising - Neurological Neurological ROS: no confusion, no convulsions, no focal weakness, no numbness, no tingling, no tremor(s) - Psychiatric Psychiatric: as per HPI - Endocrine Endocrine IM: as per HPI - Hematologic/Lymphatic Hematologic/Lymphatic: no easy bruising - Allergic/Immunologic Allergic/Immunologic: as per HPI - Constitutional Vitals: Temp Pulse Resp BP Pulse Ox 97.6 F 98 14 134/92 95 10/07/17 16:42 10/07/17 16:42 10/07/17 16:42 10/07/17 16:42 10/07/17 17:01 General appearance: Present: cooperative, A&O X 3, pleasant, no acute distress, obese, answers questions appropriately - Head Head exam: Present: atraumatic, normal inspection, normocephalic - Eye Eye exam: Present: PERRL, conjuntiva pink, sclera anicteric Pupils: Present: PERRL - ENT ENT exam: Present: normal exam, normal external ear exam - Neck Neck exam general surgery: Present: normal inspection, supple, trachea midline. Absent: lymphadenopathy - Respiratory Respiratory exam: Present: CTAB. Absent: accessory muscle use, rales, rhonchi, wheezes - Cardiovascular Cardiovascular exam: Present: irregular rhythm - GI/Abdominal GI/Abdominal exam: Present: normal bowel sounds, soft, no peritoneal signs. Absent: distended, tenderness - Rectal Rectal exam: Present: deferred - Additional comments: exam deferred. - Extremities Exam Extremities exam: Present: pedal edema (2+ pitting bilaterally), warm, radial pulses palpable and symmetrical. Absent: calf tenderness, cyanotic - Back Exam Back exam: Present: normal inspection - Neurological Exam Neurological exam: Present: CN II-XII intact, oriented X3, no focal deficits. Absent: pronater drift, facial droop, speech deficit - Psychiatric Psychiatric exam: Present: normal affect, normal mood - Skin Skin exam: Present: dry, intact Internal Med - H&P Results - Labs CBC & Chem 7: 10/07/17 13:09 10/07/17 13:09 - EKG Data Prior EKG available for review: yes Interpretation IM: suggestive of ischemia EKG comments: 10/07/17 18:10 EKG dated 07/08/17 shows atrial fibrillation with rapid ventricular response, nonspecific ST and T-wave abnormality, abnormal rhythm ECG. EKG dated 10/07/17 shows atrial flutter/tachycardia with rapid ventricular response, low QRS voltage, anteroseptal myocardial infarction of indeterminate age. Abnormal ECG. - Diagnostic Studies Chest x-ray Additional comments: Impressions Chest X-Ray 10/07/17 13:17 IMPRESSION: 1. Airspace opacities in the right lung as described. Findings are concerning for infection in the appropriate clinical setting. Asymmetric edema remains a differential consideration. D/ / 10/07/2017 14:12:43 Kayleigh Guo MD / lola Interpreting Provider: Kayleigh Guo MD <Hudson Wheeler P - Last Filed: 10/07/17 18:49> Date of Encounter: 10/07/17 Internal Medicine - H&P: HPI History of present illness: Ms. Holt is a 72 year old female All Systems PM: A 10-system review of systems was performed and is negative for pertinent findings except as documented above in the HPI. - Constitutional Vitals: Temp Pulse Resp BP Pulse Ox 97.6 F 98 14 134/92 95 10/07/17 16:42 10/07/17 16:42 10/07/17 16:42 10/07/17 16:42 10/07/17 17:01 Internal Med - H&P Results - Labs CBC & Chem 7: 10/07/17 13:09 10/07/17 13:09 - Attending Attestation I examined this patient and my medical decision-making was reviewed with the Resident Physician/PUBLIC [employer] SOCIAL WORKER. I agree with the documented findings, disposition and treatment plan as described except to the extent set forth below. Case seen and examined. Chart reviewed. 72 year old lady admitted with atrial fibrillation with rapid ventricular rate. Presently on Cardizem drip. We will resume home medication. If she does not get converted back to sinus than we will involve cardiology for further evaluation. Likely reason for acute rehabilitation with rapid ventricular rate is she did not take her oral my gavi medications after she was discharged home.
[2017-10-07] MEDS: Furosemide 20 MG/2 ML VIAL IVP SCH (18:48)
[2017-10-07] MEDS: Topiramate 25 MG TABLET PO SCH (20:27)
[2017-10-07] MEDS: Metoprolol 100 MG TABLET PO SCH (20:27)
--- NOTE | 2017-10-07 20:42 | Electrocardiograph Report ---
[place] [id number] Test Date: 2017-10-07 Pat Name: Mirtha Holt Department: 102 Room: [id number] Gender: F Station Installer: Oumar : 1945 Requested By: Chuy Junior Order Number: [id number] Reading MD: Dimas Verdugo MD Measurements Intervals [place] Rate: 124 P: DC: 0 QRS: 57 QRSD: 74 T: 25 QT: 293 QTc: 367 Interpretive Statements ATRIAL FIBRILLATION WITH RVR LOW VOLTAGE Electronically Signed On 10-07-2017 20:40:52 EST by Dimas Verdugo MD
[2017-10-08 05:25] LABS: Basophils # 0.1 K/mcL (0.0-0.2); Basophils % 0.8 %; Eosinophils # 0.2 K/mcL (0.0-0.6); Eosinophils % 3.1 %; Hematocrit 29.2 % (35.3-44.9); Immature Granulocytes % 0.8 % (0-4); Lymphocytes # 1.5 K/mcL (0.6-4.6); Lymphocytes % 24.5 %; Mean Corpuscular HGB Conc 29.8 g/dL (31.6-35.5); Mean Corpuscular Hemoglobin 29.6 pg (28.0-33.3); Mean Corpuscular Volume 99.3 fL (83.0-100.0); Mean Platelet Volume 9.4 fL (9.4-12.4); Monocytes # 0.8 K/mcL (0.0-1.3); Monocytes % 12.6 %; Neutrophils # 3.6 K/mcL (1.6-8.9); Platelet Count 212 K/mcL (140-400); Red Blood Count 2.94 M/mcL (3.82-4.97); Red Cell Distribution Width 14.4 % (11.5-14.5); Segmented Neutrophils % 58.2 %
[2017-10-08 05:28] LABS: Hemoglobin 8.7 g/dL (11.5-15.4)
[2017-10-08 05:29] LABS: INR 1.4
[2017-10-08 05:32] LABS: Activated Partial Thrombo Time 32.7 Seconds (26.0-36.0)
[2017-10-08 05:37] LABS: Hemoglobin A1C 4.5 %
[2017-10-08 05:42] LABS: BUN/Creatinine Ratio 10 (6-26); Blood Urea Nitrogen 12 mg/dL (7-20); Carbon Dioxide 28 mEq/L (19-29); Chloride 110 mEq/L (98-109); Sodium 143 mEq/L (136-145)
[2017-10-08 05:43] LABS: Albumin/Globulin Ratio 0.5 (1.1-2.2); Alkaline Phosphatase 87 Units/L (38-126); Aspartate Amino Transferase 8 Units/L (5-34); Bilirubin,Total 0.4 mg/dL (0.2-1.2); Calcium 8.1 mg/dL (8.6-10.8); Chol/HDL Ratio 3.1 (0-4.9); Cholesterol 138 mg/dL (< 200); Globulin 3.5 g/dL (2.4-3.5); Glucose 89 mg/dL (70-99); HDL Cholesterol 44 mg/dL (40-59); LDL Cholesterol,Calculated 80 mg/dL (0-99); Magnesium 1.6 mg/dL (1.6-2.6); Osmolality,Calculated 295 (280-300); Total Protein 5.3 g/dL (6.0-8.3); Triglycerides 72 mg/dL (< 150); eGFR For African Americans 56 (> 60); eGFR For Non-African Americans 46 (> 60)
[2017-10-08 05:46] LABS: Alanine Aminotransferase < 6 Units/L (0-55); Albumin 1.8 g/dL (3.5-5.0)
[2017-10-08] MEDS: dilTIAZem HCl 100 MG in D5% in Water 50 ML IVC SCH (08:28)
[2017-10-08] MEDS: Furosemide 20 MG/2 ML VIAL IVP SCH ×2 (08:39→17:30)
[2017-10-08] MEDS: *HR* Rivaroxaban 10 MG TABLET PO SCH (08:40)
[2017-10-08] MEDS: Metoprolol 100 MG TABLET PO SCH ×2 (08:40→20:53)
[2017-10-08 09:57] LABS: Thyroid Stimulating Hormone 11.532 mcIU/mL (0.350-4.840)
--- NOTE | 2017-10-08 11:03 | Cardiology Consult Note ---
<KirbyBerna - Last Filed: 10/08/17 11:03> Date of Encounter: 10/08/17 Time of Encounter: 10:45 Assessment and Plan (1) Atrial fibrillation Current Visit: Yes Status: Acute Per cardiology: -Known atrial fibrillation. -Asymptomatic when in atrial fibrillation. -Admitted with a.fib RVR in the setting of anemia. -On metoprolol 100mg BID and cardizem drip at 5mg/hour. -HR controlled now with average HR 75 previous 12 hours. -Last TTE 05/2017 with LVEf 50-55%, indeterminate diastolic function, moderate eccentric TR, mild PH, low normal to mild reduction in LV systolic function, wall motion abnormalities could not be well visualized. Patient was a.fib RVR at time of echo. -On xarelto for anticoagulation. Denies bleeding or blood loss. -[facility] 2009 with 10% proximal RCA, otherwise all other arteries angiographically free of disease. -Will switch cardizem drip to cardizem CD 120mg daily. -Continue metoprolol and xarelto. -Can consider outpatient referral to Dr.John Hernandez. Qualifiers: Atrial fibrillation type: unspecified Qualified Code(s): I48.91 - Unspecified atrial fibrillation (2) Anemia Current Visit: Yes Status: Acute Per cardiology: -Hemoglobin today 8.7, yesterday 10.5. -Of note, has vulvular cancer and finished chemo 06/2017. -Management per primary service. Qualifiers: Anemia type: unspecified type Qualified Code(s): D64.9 - Anemia, unspecified (3) Pedal edema Current Visit: Yes Status: Chronic Per cardiology: -States has chronic pedal edema. -2+ pitting pedal edema noted. -States edema today is about baseline. -ON IV lasix per primary service. -Weight today 191.4 pounds, baseline weight 192 pounds. -Will continue to monitor. Discussion w patient/family: The assessment and plan as outlined above was discussed with the patient who expressed understanding and agreement. All questions were answered. Thank you for involving us in the care of your patient. Please call with any questions. Discussed and reviewed with . History of Present Illness Consult date: 10/08/17 Consult reason: atrial fibrillation with RVR Chief complaint: "abnormal ECG from PCP" History of present illness: Ms. Holt is a 72 year old female with a relevant past medical history of HTN, depression, hypothyroidism, chronic lower extremity edema, atrial fibrillation, PE, vulvular cancer s/p chemo and radiation. Patient states she was at her PCPs office and her PCP stated her heart rate was fast. Patient states they did ECG and she was noted to be in atrial fibrillation with RVR. Patient was sent to ER. Patient denies palpitations or fluttering. Patient denies chest pain or shortness of breath. Past Med Surg Social Fam HX - Past Medical History Attestation: Yes The following information was validated with the patient. Source: patient, old records reviewed Medical history: atrial fibrillation, cancer, hypertension, pulmonary embolus, thyroid disease Psychiatric history: anxiety - Past Surgical History Surgical History: cancer surgery, hysterectomy (Total), knee replacement ( Bilateral), orthopedic, other (Carpal tunnel bilaterally) - Social History Smoking Status: Never smoker Smokeless Tobacco Status: No Alcohol use: none Drug use: none - Family History Father Race: Family Member Ethnicity: Non- Living Status: Age at : 72 Cause of : Prostate cancer Hx Family Cardiac Disorders: Yes (CAD, HTN) Hx Family Respiratory Disorders: No Hx Family Cancer: Yes (Prostate) Hx Family GI Disorders: No Hx Family Endocrine Disorder: Yes (DM) Hx Family Neuromuscular Disorders: No Hx Family Neurologic Disorders: No Hx Family HEENT Disorders: No Hx Family Autoimmune Disorders: No Mother Race: Family Member Ethnicity: Non- Living Status: Age at : 74 Cause of : Old age Hx Family Cardiac Disorders: Yes (CAD) Hx Family Endocrine Disorder: Yes (DM) Hx Family Neuromuscular Disorders: Yes Brother Race: Family Member Ethnicity: Non- Living Status: Still Living Hx Family Endocrine Disorder: Yes (DM) Sister Race: Family Member Ethnicity: Non- Living Status: Age at : 45 Cause of : Lung disease Hx Family Respiratory Disorders: Yes (Lung disease) Medications and Allergies Topiramate [Topamax] 25 mg PO HS 04/25/17 [History] Metoprolol [Lopressor] 100 mg PO BID #60 tab 06/14/17 [Rx] Rivaroxaban [Xarelto] 20 mg PO DAILY #30 tablet 09/24/17 [Rx] Levothyroxine Sodium [Synthroid] 200 mcg PO QAM 10/07/17 [History] 3 Allergy/AdvReac Type Severity Reaction Status Date / Time No Known Allergies Allergy Verified 07/08/17 11:47 All Systems Review: A 10-system review of systems was performed and is negative for pertinent findings except as documented above in the HPI. - Cardiovascular Cardiovascular: as per HPI, rapid heart rate Physical Examination Vital Signs, Last 4 Hours Temp Pulse Resp BP Pulse Ox 10/08/17 08:50 99 10/08/17 07:06 97.8 F 74 12 124/85 99 General: Conversant, No Apparent Distress HEENT: Atraumatic, Normocephaly, Mucus Membranes Moist Neck: No JVD, Normal carotid pulses Cardiac: Normal S1 and S2, No Murmur, Other (Irregularly, irregular) Lungs: Normal Breath Sounds, No Wheeze, Rales, Rhonchi Neuro: Alert and responsive, No focal deficits noted Abdomen: Soft, Non-Tender Skin: No rashes noted on visualized skin Musculoskeletal: No Chest Wall Tenderness Extremities: No Clubbing, No Cyanosis, Normal Pulses, Other (2+ bilateral lower extremity pitting edema. ) Results 10/08/17 04:55 10/08/17 04:55 Lab Results Impressions Chest X-Ray 10/07/17 13:17 IMPRESSION: 1. Airspace opacities in the right lung as described. Findings are concerning for infection in the appropriate clinical setting. Asymmetric edema remains a differential consideration. D/ / 10/07/2017 14:12:43 Kayleigh Guo MD / [facility] Inter[facility]ting Provider: Kayleigh Guo MD Active Medications Acetaminophen (Tylenol) 650 mg PO Q6HR PRN PRN Reason: Mild Pain (1-3) Stop: 04/08/18 17:48 Hydrocodone Bitart/Acetaminophen (Alpha 5-325 Mg) 1 tab PO Q4HR PRN PRN Reason: Moderate Pain (4-6) Stop: 04/08/18 17:48 Diltiazem HCl (Cardizem Cd) 120 mg PO DAILY KAM Stop: 04/09/18 11:16 Furosemide (Lasix) 20 mg IVP BIDDIURETIC KAM Stop: 04/08/18 18:46 Last Admin: 10/08/17 08:39 Dose: 20 mg Levothyroxine Sodium (Synthroid) 200 mcg PO QAM [facility] Stop: 04/09/18 09:01 Last Admin: 10/08/17 08:40 Dose: 200 mcg Metoprolol Tartrate (Lopressor) 100 mg PO BID KAM Stop: 04/08/18 21:01 Last Admin: 10/08/17 08:40 Dose: 100 mg Naloxone HCl (Narcan) 0.4 mg IVP Q2MIN PRN PRN Reason: Opioid Reversal Stop: 04/08/18 17:48 Ondansetron HCl (Zofran) 4 mg IVP Q8HR PRN PRN Reason: Nausea And Vomiting Stop: 04/08/18 17:48 Rivaroxaban (Xarelto) 20 mg PO DAILY [facility] Stop: 04/09/18 09:01 Last Admin: 10/08/17 08:40 Dose: 20 mg Topiramate (Topamax) 25 mg PO HS [facility] Stop: 04/08/18 21:01 Last Admin: 10/07/17 20:27 Dose: 25 mg Laboratory Tests 10/07/17 10/07/17 10/07/17 13:09 13:09 13:09 Hgb 10.5 L Potassium Creatinine 1.20 H Magnesium Troponin I 0.01 TSH 17.060 H 10/08/17 10/08/17 04:55 04:55 Hgb 8.7 L D Potassium 4.0 Creatinine 1.15 H Magnesium 1.6 Troponin I TSH - Imaging and Cardiology Chest Xray: report reviewed Echo: report reviewed Cardiac cath: report reviewed - EKG Interpretation EKG results cardiology: personally reviewed (ECG with atrial fibrillation with RVR, HR 124.), other (Telemetry reviewed with average HR previous 12 hours noted to be 75, atrial fibrillation. PVCs noted.) Consult Discharge Plan - Plan Referrals: Ashley Wright, YACHT CAPTAIN [Primary Care Provider] - <Nicolás Mednes - Last Filed: 10/08/17 18:21> Date of Encounter: 10/08/17 - Attending Attestation I have personally performed a face to face evaluation on this patient. I have reviewed and agree with the care plan. History and Exam by me shows: 1. Atrial fib, paroxysmal, was in A fib with RVR on evaluation in primary care office, referred to ER, started on IV diltiazem with control of rapid ventricular response, now ventricular rate response adequately controlled with switch to po diltiazem, continue po metoprolol. Pt is on systemic anticoagulation with Xaralto for primary stroke risk reduction. 2. Anemia - multifactorial, completing chemo tx for vulvar cancer, hb 8.7, cotninue to monitor 3. Pedal edema - chronic, slighlty improved with IV lasix, recommend nocturnal pulse oximetry to eval for undiagnosed CYRUS Assessment and Plan Discussion w patient/family: The assessment and plan as outlined above was discussed with the patient and/or family members who expressed understanding and agreement. All questions were answered. Thank you for involving us in the care of your patient. Please call with any questions. History of Present Illness History of present illness: Ms. Holt is a 72 year old female All Systems Review: A 10-system review of systems was performed and is negative for pertinent findings except as documented above in the HPI. Physical Examination Vital Signs, Last 4 Hours Temp Pulse Resp BP Pulse Ox 10/08/17 15:51 98.1 F 77 12 107/72 99 Results 10/08/17 04:55 10/08/17 04:55 Lab Results 10/08/17 10/08/17 10/08/17 04:55 04:55 04:55 WBC 6.2 Hgb 8.7 L D Hct 29.2 L Plt Count 212 INR 1.4 APTT 32.7 Sodium 143 Potassium 4.0 Chloride 110 H Carbon Dioxide 28 BUN 12 Creatinine 1.15 H Glucose 89 Calcium 8.1 L Magnesium 1.6 Total Bilirubin 0.4 AST 8 ALT < 6 Alkaline Phosphatase 87 TSH 11.532 H
[2017-10-08] MEDS: Diltiazem CD (24hr) 120 MG CAPSULE PO SCH (12:16)
--- NOTE | 2017-10-08 18:55 | Internal Med Progress Note ---
Date of Encounter: 10/08/17 Time of Encounter: 11:00 - Assessment and plan (1) Atrial fibrillation with rapid ventricular response Current Visit: No Status: Acute Assessment and plan: -Heart rate now controlled on Cardizem drip -Discontinue earlier by cardiology and started on oral Cardizem. (2) JOSE (acute kidney injury) Current Visit: Yes Status: Acute Assessment and plan: -Suspect secondary to dehydration versus acute on chronic anemia. -Continue to monitor. (3) Anemia Current Visit: Yes Status: Acute Assessment and plan: -Acute on chronic anemia with hemoglobin of 8.7 today. -Hemoccult stool ordered. -Continue to monitor. Qualifiers: Anemia type: unspecified type Qualified Code(s): D64.9 - Anemia, unspecified (4) HTN (hypertension) Current Visit: Yes Status: Chronic Assessment and plan: -Continue home medications. Qualifiers: Hypertension type: essential hypertension Qualified Code(s): I10 - Essential (primary) hypertension (5) Pedal edema Current Visit: Yes Status: Chronic Assessment and plan: -Concerns for CHF. -IV Lasix was given on admission. -Cardiology following and appreciate recommendations. (6) History of pulmonary embolism Current Visit: No Status: Acute Assessment and plan: -Continue Xarelto (7) DVT prophylaxis Current Visit: Yes Status: Acute Assessment and plan: -On Xarelto as above - Subjective Interval history: No acute events overnight - Constitutional Vitals: Temp Pulse Resp BP Pulse Ox 98.1 F 77 12 107/72 99 10/08/17 15:51 10/08/17 15:51 10/08/17 15:51 10/08/17 15:51 10/08/17 15:51 General appearance: Present: cooperative, A&O X 3, pleasant, no acute distress, obese, answers questions appropriately - Respiratory Respiratory exam: Present: CTAB. Absent: accessory muscle use, rales, rhonchi, wheezes - Cardiovascular Cardiovascular exam: Present: RRR, +S1, +S2. Absent: diastolic murmur, gallop, rubs, systolic murmur Internal Medicine: Result - Labs CBC & Chem 7: 10/08/17 04:55 10/08/17 04:55 Labs: Short CBC 10/08/17 Range/Units 04:55 WBC 6.2 (4.3-11.1) K/mcL Hgb 8.7 L D (11.5-15.4) g/dL Hct 29.2 L (35.3-44.9) % Plt Count 212 (140-400) K/mcL Neutrophils # 3.6 (1.6-8.9) K/mcL BMP 10/08/17 04:55 Sodium 143 Potassium 4.0 Chloride 110 H Carbon Dioxide 28 BUN 12 Creatinine 1.15 H Glucose 89 Calcium 8.1 L Liver Function 10/08/17 Range/Units 04:55 Total Bilirubin 0.4 (0.2-1.2) mg/dL AST 8 (5-34) Units/L ALT < 6 (0-55) Units/L Alkaline Phosphatase 87 (38-126) Units/L Albumin 1.8 L (3.5-5.0) g/dL - ABG Interpretation ABG results: PT/INR, D-dimer PT 15.0 Seconds (9.4-12.1) H 10/08/17 04:55 Consult Discharge Plan - Plan Referrals: Ashley Wright, AISLINN [Primary Care Provider] -
[2017-10-08] MEDS: Topiramate 25 MG TABLET PO SCH (20:54)
[2017-10-09 01:20] LABS: Basophils # 0.1 K/mcL (0.0-0.2); Basophils % 0.7 %; Eosinophils # 0.2 K/mcL (0.0-0.6); Eosinophils % 2.8 %; Hematocrit 29.1 % (35.3-44.9); Hemoglobin 8.7 g/dL (11.5-15.4); Immature Granulocytes % 0.7 % (0-4); Lymphocytes # 1.8 K/mcL (0.6-4.6); Lymphocytes % 25.1 %; Mean Corpuscular HGB Conc 29.9 g/dL (31.6-35.5); Mean Corpuscular Hemoglobin 29.6 pg (28.0-33.3); Mean Platelet Volume 9.7 fL (9.4-12.4); Monocytes # 0.9 K/mcL (0.0-1.3); Monocytes % 12.3 %; Neutrophils # 4.1 K/mcL (1.6-8.9); Platelet Count 192 K/mcL (140-400); Red Blood Count 2.94 M/mcL (3.82-4.97); Red Cell Distribution Width 14.3 % (11.5-14.5); Segmented Neutrophils % 58.4 %
[2017-10-09 01:38] LABS: Alanine Aminotransferase < 6 Units/L (0-55); Albumin 1.7 g/dL (3.5-5.0); Albumin/Globulin Ratio 0.5 (1.1-2.2); Alkaline Phosphatase 84 Units/L (38-126); Aspartate Amino Transferase 8 Units/L (5-34); BUN/Creatinine Ratio 10 (6-26); Bilirubin,Total 0.3 mg/dL (0.2-1.2); Blood Urea Nitrogen 12 mg/dL (7-20); Carbon Dioxide 29 mEq/L (19-29); Chloride 110 mEq/L (98-109); Globulin 3.7 g/dL (2.4-3.5); Glucose 103 mg/dL (70-99); Osmolality,Calculated 298 (280-300); Sodium 144 mEq/L (136-145); Total Protein 5.4 g/dL (6.0-8.3); eGFR For African Americans 51 (> 60); eGFR For Non-African Americans 42 (> 60)
--- NOTE | 2017-10-09 09:06 | Cardiology Progress Note ---
Date of Encounter: 10/09/17 Time of Encounter: 08:30 Assessment and Plan (1) Atrial fibrillation Current Visit: Yes Status: Acute Per cardiology: -Known atrial fibrillation. -Asymptomatic when in atrial fibrillation. -Admitted with a.fib RVR in the setting of anemia. -On metoprolol 100mg BID and cardizem CD 120mg. -HR controlled now with average HR 73 previous 12 hours. -Last TTE 05/2017 with LVEf 50-55%, indeterminate diastolic function, moderate eccentric TR, mild PH, low normal to mild reduction in LV systolic function, wall motion abnormalities could not be well visualized. Patient was a.fib RVR at time of echo. -Limited TTE pedning. -On xarelto for anticoagulation. Denies bleeding or blood loss. -LHC 2009 with 10% proximal RCA, otherwise all other arteries angiographically free of disease. -Anticipate sign off if limited TTE with no significant findings. Qualifiers: Atrial fibrillation type: unspecified Qualified Code(s): I48.91 - Unspecified atrial fibrillation (2) Anemia Current Visit: Yes Status: Acute Per cardiology: -Hemoglobin today 8.7. -Of note, has vulvular cancer and finished chemo 06/2017. -Management per primary service. Qualifiers: Anemia type: unspecified type Qualified Code(s): D64.9 - Anemia, unspecified (3) Pedal edema Current Visit: Yes Status: Chronic Per cardiology: -States has chronic pedal edema. -2+ pitting pedal edema noted. -States edema today is about baseline. -ON IV lasix per primary service. -Weight today 189 pounds, baseline weight 192 pounds. -Will continue to monitor in outpatient setting. Discussion w patient/family: The assessment and plan as outlined above was discussed with the patient who expressed understanding and agreement. All questions were answered. Thank you for involving us in the care of your patient. Please call with any questions. Discussed and reviewed with . Subjective Principal diagnosis: atrial fibrillation Interval history: Patient states she feels wells this morning. Denies complaints Objective Vital Signs, Last 4 Hours Temp Pulse Resp BP Pulse Ox 10/09/17 08:00 98 F 71 20 126/82 96 General: Conversant, No Apparent Distress HEENT: Atraumatic, Normocephaly, Mucus Membranes Moist Neck: No JVD, Normal carotid pulses Cardiac: Other (Irregularly irregular) Lungs: Normal Breath Sounds, No Wheeze, Rales, Rhonchi Neuro: Alert and responsive, No focal deficits noted Abdomen: Soft, Non-Tender Skin: No rashes noted on visualized skin Musculoskeletal: No Chest Wall Tenderness Extremities: No Clubbing, No Cyanosis, Normal Pulses, Other (2+ bilateral lower extremity pitting edema. ) Results 10/09/17 00:19 10/09/17 00:19 Lab Results Active Medications Acetaminophen (Tylenol) 650 mg PO Q6HR PRN PRN Reason: Mild Pain (1-3) Stop: 04/08/18 17:48 Hydrocodone Bitart/Acetaminophen ([place] 5-325 Mg) 1 tab PO Q4HR PRN PRN Reason: Moderate Pain (4-6) Stop: 04/08/18 17:48 Diltiazem HCl (Cardizem Cd) 120 mg PO DAILY [facility] Stop: 04/09/18 11:16 Last Admin: 10/08/17 12:16 Dose: 120 mg Furosemide (Lasix) 20 mg IVP BIDDIURETIC [facility] Stop: 04/08/18 18:46 Last Admin: 10/08/17 17:30 Dose: 20 mg Levothyroxine Sodium (Synthroid) 200 mcg PO DAILY@0630 [facility] Stop: 04/10/18 06:31 Last Admin: 10/09/17 05:29 Dose: 200 mcg Metoprolol Tartrate (Lopressor) 100 mg PO BID [facility] Stop: 04/08/18 21:01 Last Admin: 10/08/17 20:53 Dose: 100 mg Naloxone HCl (Narcan) 0.4 mg IVP Q2MIN PRN PRN Reason: Opioid Reversal Stop: 04/08/18 17:48 Ondansetron HCl (Zofran) 4 mg IVP Q8HR PRN PRN Reason: Nausea And Vomiting Stop: 04/08/18 17:48 Rivaroxaban (Xarelto) 20 mg PO DAILY [facility] Stop: 04/09/18 09:01 Last Admin: 10/08/17 08:40 Dose: 20 mg Topiramate (Topamax) 25 mg PO HS [facility] Stop: 04/08/18 21:01 Last Admin: 10/08/17 20:54 Dose: 25 mg Laboratory Tests 10/09/17 10/09/17 00:19 00:19 Hgb 8.7 L Potassium 4.0 Creatinine 1.25 H - Imaging and Cardiology Chest Xray: report reviewed Echo: pending - EKG Interpretation EKG results cardiology: other (Telemetry reviewed with average HR previous 12 hours noted to be 73, atrial fibrillation. Longest pause 1.9 seconds. PVCs noted.) Consult Discharge Plan - Plan Referrals: Ashley Wright, AISLINN [Primary Care Provider] -
[2017-10-09] MEDS: Furosemide 20 MG/2 ML VIAL IVP SCH (09:36)
[2017-10-09] MEDS: Metoprolol 100 MG TABLET PO SCH (09:36)
[2017-10-09] MEDS: Diltiazem CD (24hr) 120 MG CAPSULE PO SCH (09:36)
[2017-10-09] MEDS: *HR* Rivaroxaban 10 MG TABLET PO SCH (09:36)
[2017-10-09 17:22] VITALS: BP 134/86
--- NOTE | 2017-10-09 17:23 | Discharge Summary ---
Date of Encounter: 10/09/17 Time of Encounter: 11:00 - Discharge Diagnosis (1) Atrial fibrillation with rapid ventricular response Priority: Primary Status: Acute (2) JOSE (acute kidney injury) Priority: Secondary Status: Acute (3) Anemia Priority: Secondary Status: Acute Qualifiers: Anemia type: unspecified type Qualified Code(s): D64.9 - Anemia, unspecified (4) HTN (hypertension) Priority: Secondary Status: Chronic Qualifiers: Hypertension type: essential hypertension Qualified Code(s): I10 - Essential (primary) hypertension (5) Pedal edema Priority: Secondary Status: Chronic (6) History of pulmonary embolism Priority: Secondary Status: Acute - Discharge Medications Prescriptions: Diltiazem CD (24hr) [Cardizem CD] 120 mg PO DAILY #30 cap.er.24h Home Medications: Topiramate [Topamax] 25 mg PO HS 04/25/17 [History] Metoprolol [Lopressor] 100 mg PO BID #60 tab 06/14/17 [Rx] Rivaroxaban [Xarelto] 20 mg PO DAILY #30 tablet 09/24/17 [Rx] Levothyroxine Sodium [Synthroid] 200 mcg PO QAM 10/07/17 [History] Diltiazem CD (24hr) [Cardizem CD] 120 mg PO DAILY #30 cap.er.24h 10/09/17 [Rx] Allergies/Adverse Reactions: 3 Allergy/AdvReac Type Severity Reaction Status Date / Time No Known Allergies Allergy Verified 07/08/17 11:47 Procedures/tests Complete & Pending: Procedures Performed prior 72 hours Category Date Time Status EV limited echocardiogram Routine Y 10/08/17 11:36 Completed Date of admission: 10/07/17 17:47 Primary care physician: Ashley Wright, - Patient Status Disposition: Home, Self-Care Condition: Fair - Discharge Instructions Instructions: Atrial Fibrillation (DC), Hypothyroidism (DC), Chronic Hypertension (DC), Anemia (GEN) Follow Up With: Ashley Wright CNP [Primary Care Provider] - Sukhjinder Douglass DO [Partnered Physician] - () Hospital course: MPatieana rosa is a 72-year-old female with past medical history significant for paroxysmal atrial fibrillation, cancer, hypertension, pulmonary embolus diagnosed 3 months ago, and thyroid disease presents from ED with chief complaint heart palpitations and arrhythmia that began the morning of admission. Patient was at PCPs office and found to be in atrial fibrillation with RVR and sent to ED. During patients hospital stay patients heart rate was controlled on metoprolol 100mg BID and cardizem CD 120mg; on xarelto for anticoagulation. Cardiology was consulted with recommendations to continue current medical management and patient will follow-up with cardiology and primary care of either as an outpatient. - Time Spent with Patient Total time spent providing and/or coordinating discharge services: - Constitutional Vitals: Temp Pulse Resp BP Pulse Ox 98.4 F 77 20 120/93 95 10/09/17 12:00 10/09/17 12:00 10/09/17 12:00 10/09/17 12:00 10/09/17 12:00 General appearance: Present: cooperative, A&O X 3, pleasant, no acute distress, obese, answers questions appropriately - Cardiovascular Cardiovascular exam: Present: RRR, +S1, +S2. Absent: diastolic murmur, gallop, rubs, systolic murmur
== END 2017-10-09 19:27 | disposition home or self-care (01) | DRG 309 ==
LOC: EMEROO 12:53 → 2NENU 12:53 → SUATTDRO 17:47
PROVIDERS: ADMIT Internal Medicine; ATTEND Hospitalist

== ENCOUNTER 2017-10-31 15:05 | Observation (INO) ==
[2017-10-31] MEDS ORDERED: 0.9 % Sodium Chloride 1,000 ML IVC ONE (15:26)
--- NOTE | 2017-10-31 15:37 | Emergency Department Note ---
Disposition Clinical Impression: Atrial fibrillation with RVR, Hypomagnesemia UTI (urinary tract infection) Qualifiers: Urinary tract infection type: site unspecified Hematuria presence: with hematuria Qualified Code(s): N39.0 - Urinary tract infection, site not specified ; R31.9 - Hematuria, unspecified; R31.9 - Hematuria, unspecified Disposition: Admitted As Inpatient Condition: Fair Referrals: Ashley Wright CNP [Primary Care Provider] - Forms: ED Satisfaction Letter Time of Disposition: 17:28 Arrhythmia/Palpitations HPI - General Chief Complaint: ED Arrhythmia/Palpitations Stated Complaint: A-Fib Time Seen by Provider: 10/31/17 15:25 Source: EMS Limitations: no limitations Nursing Notes Reviewed: Yes Vital Signs Reviewed: Yes - History of Present Illness HPI Narrative: Patient 72-year-old female presents with A. fib RVR identified at cardiology appointment prior to coming to the ED. Patient states she was asymptomatic at the time. When she was evaluated they found she was in A. fib RVR at a rate of 169. She was directed to come to the emergency department. Patient denies any recent sick contacts any chest pain chest pressure and lightheadedness or dizziness. Patient has a history of PE and is currently on Xarelto. Patient also has history of hypertension, renal disease and vulvular cancer. she denies pain anywhere else in her body and no shortness of breath. - Related Data Home Medications Medication Instructions Recorded Confirmed Topiramate [Topamax] 25 mg PO HS 04/25/17 10/07/17 Levothyroxine Sodium [Synthroid] 200 mcg PO QAM 10/07/17 10/07/17 Previous Rx's Medication Instructions Recorded Metoprolol [Lopressor] 100 mg PO BID #60 tab 06/14/17 Rivaroxaban [Xarelto] 20 mg PO DAILY #30 tablet 09/24/17 Diltiazem CD (24hr) [Cardizem CD] 120 mg PO DAILY #30 cap.er.24h 10/09/17 Allergies Allergy/AdvReac Type Severity Reaction Status Date / Time No Known Allergies Allergy Verified 07/08/17 11:47 All systems ED: reviewed and negative except as stated. Review of Systems: As Per HPI Constitutional: Denies: fever, weakness Eyes: Denies: vision change ENT ED: Denies: congestion Cardiovascular: Denies: chest pain, palpitations Respiratory: Denies: cough, dyspnea, wheezes, hemoptysis Gastrointestinal: Denies: abdominal pain, nausea, vomiting, diarrhea Genitourinary: Denies: urgency, dysuria, frequency Musculoskeletal: Denies: back pain, neck pain Integumentary: Denies: rash Neurological: Denies: headache, weakness, numbness, paresthesias Psychiatric: Denies: anxiety Endocrine: Denies: fatigue Past Medical History - Past Medical History Attestation: Yes The following information was validated with the patient. Source: patient, nursing notes reviewed Medical history: Reports: atrial fibrillation, cancer, GERD, hypertension, migraine, pulmonary embolus, renal disease, thyroid disease Surgical history: Reports: cancer surgery, hysterectomy (Total), knee replacement (Bilateral), orthopedic, other (Carpal tunnel bilaterally) Psychiatric history: Reports: anxiety, depression - Social History Smoking Status: Never smoker Smokeless Tobacco Status: No Alcohol use: Reports: none Drug use: Reports: none Physical Exam Vital Signs Temperature 98.1 F 10/31/17 15:08 Pulse Rate 110 10/31/17 15:08 Respiratory Rate 16 10/31/17 15:08 Blood Pressure 125/88 10/31/17 15:08 O2 Sat by Pulse Oximetry 96 10/31/17 15:08 Temperature 98.1 F 10/31/17 15:08 Pulse Rate 110 10/31/17 15:08 Respiratory Rate 16 10/31/17 15:08 Blood Pressure 125/88 10/31/17 15:08 O2 Sat by Pulse Oximetry 96 10/31/17 15:08 Oxygen Delivery Oxygen Delivery Room Air 72-year-old female who is alert and oriented 3 and in no acute distress. Patient is nontoxic-appearing. Patient has otherwise normal vital signs the exception of her heart rate which is 110 bpm. - General Limitations: no limitations General appearance: alert, in no apparent distress - Head Head exam: atraumatic, normocephalic, normal inspection - Eye Eye exam: Present: normal appearance, PERRL, EOMI - ENT ENT exam: normal exam, normal oropharynx, mucous membranes moist - Neck Neck exam: Present: normal inspection, full ROM, trachea midline - Chest Chest inspection: Present: normal inspection, symmetric chest wall rise - Respiratory Respiratory exam: Present: normal lung sounds bilaterally - Cardiovascular Cardiovascular exam: Present: tachycardia, irregular rhythm - Abdominal Exam Abdominal exam: Present: soft, Non-Tender. Absent: tenderness, distention, guarding, rebound, rigidity - Extremities Exam Extremities exam: Present: normal inspection, full ROM, normal capillary refill. Absent: tenderness, pedal edema - Back Exam Back exam: Present: normal inspection, full ROM. Absent: tenderness, CVA tenderness (R), CVA tenderness (L) - Skin Skin exam: Present: warm, dry, intact, normal color Course Vital Signs Temperature 98.1 F 10/31/17 15:08 Pulse Rate 110 10/31/17 15:08 Respiratory Rate 16 10/31/17 15:08 Blood Pressure 125/88 10/31/17 15:08 O2 Sat by Pulse Oximetry 96 10/31/17 15:08 Temperature 98.1 F 10/31/17 15:08 Pulse Rate 110 10/31/17 15:08 Respiratory Rate 16 10/31/17 15:08 Blood Pressure 125/88 10/31/17 15:08 O2 Sat by Pulse Oximetry 96 10/31/17 15:08 Oxygen Delivery Oxygen Delivery Room Air Arrhythmia/Palpitations - [facility] Narrative Medical decision making narrative: A. fib RVR Patient denies asymptomatic and working to find any lab abdomen positive which may explain her current condition. Patient will be rate controlled started and Cardizem 10 mg bolus oh by 2.5 mg hour drip. If unsuccessful patient will be given another bolus of 10 mg. Patient will receive bolus after 500 mL bolus of IV normal saline. 1610 hrs. reevaluation after initial 10 mg bolus of Cardizem patient's currently between 106 and 116 on heart rate. Blood pressures tolerating the dosage. We will await the patient gets more IV fluid and will rebolus. 1626 hrs. second bolus of 10 mg of Cardizem IV ordered Patient's rate currently sounds to between high 70s and low 100s around 106. Patient's. Still a symptomatic. Troponin negative. Magnesium 1.5 added 2 g bolus of mag IV. Chest x-ray clear of any abnormalities. Patient understands and agrees his decision for admission. Urinalysis show signs for UTI which may be causing patient's A. fib. Plan start patient [address] Mullins the hospitalist has accepted patient for admission at 1653 hrs. - Lab Data Lab results reviewed: Yes I reviewed the patient's lab results. Lab results narrative: Short CBC 10/31/17 Range/Units 15:57 WBC 9.2 (4.3-11.1) K/mcL Hgb 9.6 L (11.5-15.4) g/dL Hct 31.4 L (35.3-44.9) % Plt Count 173 (140-400) K/mcL Neutrophils # 6.8 (1.6-8.9) K/mcL BMP 10/31/17 Range/Units 15:57 Sodium 143 (136-145) mEq/L Potassium 3.8 (3.5-4.5) mEq/L Chloride 112 H (98-109) mEq/L Carbon Dioxide 24 (19-29) mEq/L BUN 13 (7-20) mg/dL Creatinine 0.99 (0.57-1.11) mg/dL Glucose 103 H (70-99) mg/dL Calcium 8.7 (8.6-10.8) mg/dL Cardiac Enzymes 10/31/17 Range/Units 15:57 Troponin I 0.01 (0-0.03) ng/mL Urine 10/31/17 Range/Units 16:23 Urine Color Yellow (Yellow) Urine Clarity Cloudy A (Clear) Urine pH 6.5 (5.0-8.0) pH Units Ur Specific [place] 1.020 (1.010-1.025) Urine Protein 30 H (Neg-Trace) mg/dL Urine Glucose (UA) Normal (Normal) mg/dL Result diagrams: 10/31/17 15:57 Lab Results 10/31/17 10/31/17 Range/Units 15:57 15:57 WBC 9.2 (4.3-11.1) K/mcL RBC 3.28 L (3.82-4.97) M/mcL Hgb 9.6 L (11.5-15.4) g/dL Hct 31.4 L (35.3-44.9) % MCV 95.7 (83.0-100.0) fL MCH 29.3 (28.0-33.3) pg MCHC 30.6 L (31.6-35.5) g/dL RDW 14.0 (11.5-14.5) % Plt Count 173 (140-400) K/mcL MPV 9.6 (9.4-12.4) fL Immature Gran % 0.5 (0-4) % Seg Neutrophils % 73.5 % Lymphocytes % 14.8 % Monocytes % 9.9 % Eosinophils % 0.9 % Basophils % 0.4 % Neutrophils # 6.8 (1.6-8.9) K/mcL Lymphocytes # 1.4 (0.6-4.6) K/mcL Monocytes # 0.9 (0.0-1.3) K/mcL Eosinophils # 0.1 (0.0-0.6) K/mcL Basophils # 0.0 (0.0-0.2) K/mcL PT 14.1 H (9.4-12.1) Seconds INR 1.3 - Radiology Data Radiology results reviewed: Yes I reviewed the patient's radiology results. Chest X-Ray 10/31/17 15:26 IMPRESSION: 1. No acute cardiopulmonary abnormality. 2. Near complete resolution of previously present pulmonary opacity in keeping with resolving pneumonia or edema. 3. Mild cardiomegaly. D/ / Dequan Yeager / Dequan Yeager Interpreting Provider: Dequan Yeager - EKG Data EKG attestation: Yes I reviewed and interpreted this EKG. EKG results narrative: EKG taken 10/31/2017 at 1520 hrs. shows A. fib RVR at a rate of 131 beats a minute. No acute ST elevations or depressions name leads, QRS complexes are narrow. Rhythm was comparatively the same as previous EKG taken in 1120 2016.
--- NOTE | 2017-10-31 15:46 | Emergency Department Note ---
START Narrative - START START: I examined this patient and my medical decision-making was reviewed with the CHEMICAL INSPECTOR/PA/Advanced Practice Nurse/Resident Physician. I agree with the documented findings, disposition and treatment plan as described except to the extent set forth below. ED attending note: Patient seen with emergency medicine resident Dr. Dany Sherman. We independently evaluated the patient. We independently had face-to- face contact with the patient. Please see a copy of his note for details of the history and physical, evaluation, management and disposition of this emergency Department patient. Briefly: A 72-year-old female history of A. fib was seen a director of market research office was in determine on EKG noted A. fib with RVR in the 160s here for further evaluation repeat EKG shows A. fib with RVR in the 130s. Patient getting chemical cardioversion with IV Cardizem will then be admitted to the hospitalist for A. fib with RVR. Providing 30 minutes critical care services this patient. Admission disposition pending
[2017-10-31] MEDS: dilTIAZem HCl 100 MG in D5% in Water 50 ML IVC SCH (15:50)
[2017-10-31 16:14] LABS: Basophils % 0.4 %; Eosinophils # 0.1 K/mcL (0.0-0.6); Eosinophils % 0.9 %; Hematocrit 31.4 % (35.3-44.9); Hemoglobin 9.6 g/dL (11.5-15.4); Immature Granulocytes % 0.5 % (0-4); Lymphocytes # 1.4 K/mcL (0.6-4.6); Lymphocytes % 14.8 %; Mean Corpuscular HGB Conc 30.6 g/dL (31.6-35.5); Mean Corpuscular Hemoglobin 29.3 pg (28.0-33.3); Mean Corpuscular Volume 95.7 fL (83.0-100.0); Mean Platelet Volume 9.6 fL (9.4-12.4); Monocytes # 0.9 K/mcL (0.0-1.3); Monocytes % 9.9 %; Neutrophils # 6.8 K/mcL (1.6-8.9); Platelet Count 173 K/mcL (140-400); Red Blood Count 3.28 M/mcL (3.82-4.97); Segmented Neutrophils % 73.5 %
[2017-10-31 16:18] LABS: INR 1.3; Prothrombin Time 14.1 Seconds (9.4-12.1)
[2017-10-31 16:27] LABS: BUN/Creatinine Ratio 13 (6-26); Blood Urea Nitrogen 13 mg/dL (7-20); Calcium 8.7 mg/dL (8.6-10.8); Carbon Dioxide 24 mEq/L (19-29); Chloride 112 mEq/L (98-109); Glucose 103 mg/dL (70-99); Magnesium 1.5 mg/dL (1.6-2.6); Osmolality,Calculated 296 (280-300); Potassium 3.8 mEq/L (3.5-4.5); Sodium 143 mEq/L (136-145); eGFR For African Americans > 60 (> 60); eGFR For Non-African Americans 55 (> 60)
[2017-10-31 16:38] LABS: Bilirubin,Urine Negative (Negative); Blood,Urine Small (Negative); Clarity,Urine Cloudy (Clear); Color,Urine Yellow (Yellow); Glucose,Urine (UA) Normal (Normal); Ketones,Urine Negative (Negative); Leukocyte Esterase,Urine Large (Negative); Nitrite,Urine Negative (Negative); PH,Urine 6.5 pH Units (5.0-8.0); Protein,Urine 30 mg/dL (Neg-Trace); Urobilinogen,Urine Normal (Normal)
[2017-10-31 16:50] LABS: Thyroid Stimulating Hormone 3.143 mcIU/mL (0.350-4.840)
[2017-10-31 16:53] LABS: Squamous Epithelial Cell,Urine Few per lpf (None-Few); WBC,Urine TNTC per hpf (0-3)
[2017-10-31 16:54] LABS: Renal Epithelial Cells,Urine Moderate per hpf (None-Few)
[2017-10-31 16:55] LABS: Bacteria,Urine Many per hpf (None-Few); Yeast,Urine Few per hpf (None Seen)
[2017-10-31] MEDS ORDERED: Ondansetron 4 MG/2 ML VIAL IVP PRN (17:53)
[2017-10-31] MEDS ORDERED: MOM Conc 10 ML UD.LIQ PO PRN (17:53)
[2017-10-31] MEDS ORDERED: Mag Hydrox/Al Hydrox/Simeth 30 ML UDC PO PRN (17:53)
[2017-10-31] MEDS ORDERED: Acetaminophen 325 MG TABLET PO PRN (17:53)
[2017-10-31] MEDS ORDERED: Naloxone 0.4 MG/ML INJ IVP PRN (17:53)
[2017-10-31] MEDS ORDERED: cefTRIAXone 1,000 MG in Water for inj. (sterile) 10 ML IVP ONE (18:12)
--- NOTE | 2017-10-31 18:20 | Internal Med History&Physical ---
Date of Encounter: 10/31/17 Time of Encounter: 17:30 Assessment and Plan (1) Atrial fibrillation Current visit: Yes Status: Acute Pt with hx of paroxysmal atrial fibrillation. Was following up post hospitalization and noted to be in rapid a fib and sent in Currently on card drip. Continue metoprolol and hold PO Cardizem Continue anticoagulation with Xarelto Cardiology eval in AM (sent from card office). Replace magnesium TSH normal Qualifiers: Atrial fibrillation type: paroxysmal Qualified Code(s): I48.0 - Paroxysmal atrial fibrillation (2) Hypomagnesemia Current visit: Yes Status: Acute Replaced in ED. Recheck tomorrow. (3) Urinary tract infection Current visit: Yes Status: Acute Pt is asymptomatic. Culture pending. Started on Ceftriaxone in ED. Qualifiers: Urinary tract infection type: acute cystitis Hematuria presence: with hematuria Qualified Code(s): N30.01 - Acute cystitis with hematuria (4) Hypothyroidism Current visit: No Status: Chronic Continue home Synthyroid Qualifiers: Hypothyroidism type: acquired Qualified Code(s): E03.9 - Hypothyroidism, unspecified (5) Anemia Current visit: No Status: Chronic Monitor hemoglobin. Anticoagulated Qualifiers: Anemia type: other cause Other causes of anemia: chronic disease, other Qualified Code(s): D63.8 - Anemia in other chronic diseases classified elsewhere (6) HTN (hypertension) Current visit: No Status: Chronic Chronic issue Continue metoprolol and card drip for now. Qualifiers: Hypertension type: essential hypertension Qualified Code(s): I10 - Essential (primary) hypertension (7) History of pulmonary embolism Current visit: No Status: Chronic On Xarelto Internal Medicine - H&P: HPI Chief complaint: Atrial fibrillation Admitted From: Emergency Dept Plans for Post Hospital Care: Home History of present illness: Ms. Holt is a 72 year old female with prior hx of paroxysmal atrial fibrillation sent to ED from cardiology office due to tachycardia. She was most recently hospitalized here at the end of September for similar symptoms. She was following up post hospital today when her heart rate was noted to be 159. She denies CP, SOB or palpitations. No recent illness. In ED she was evaluated and subsequently placed in observation for rapid a fib. Currently she feels OK except for being hungry. She has no CP or SOB. No abd pain. No fever or chills. She takes her medicine regularly and does not miss it. She did not feel the tachycardia so does not know when it recurs. Due to her recurrent hx of rapid a fib and risk of further cardiac issues she is high risk at this time. She is currently on a titratable cardizem drip. Past Med Surg Social Fam HX - Past Medical History Source: patient, old records reviewed Medical history: atrial fibrillation, cancer, GERD, hypertension, migraine, pulmonary embolus, renal disease, thyroid disease Psychiatric history: anxiety, depression - Past Surgical History Surgical History: cancer surgery, hysterectomy (Total), knee replacement ( Bilateral), orthopedic, other (Carpal tunnel bilaterally) - Social History Smoking Status: Never smoker Smokeless Tobacco Status: No Alcohol use: none Drug use: none - Family History Father Family Member Ethnicity: Non- Living Status: Hx Family Cardiac Disorders: Yes (CAD, HTN) Hx Family Respiratory Disorders: No Hx Family Cancer: Yes (Prostate) Hx Family GI Disorders: No Hx Family Endocrine Disorder: Yes (DM) Hx Family Neuromuscular Disorders: No Hx Family Neurologic Disorders: No Hx Family HEENT Disorders: No Hx Family Autoimmune Disorders: No Mother Family Member Ethnicity: Non- Living Status: Hx Family Cardiac Disorders: Yes (CAD) Hx Family Endocrine Disorder: Yes (DM) Hx Family Neuromuscular Disorders: Yes Brother Family Member Ethnicity: Non- Living Status: Still Living Hx Family Endocrine Disorder: Yes (DM) Sister Family Member Ethnicity: Non- Living Status: Hx Family Respiratory Disorders: Yes (Lung disease) Internal Medicine - H&P: Meds Topiramate [Topamax] 25 mg PO HS 04/25/17 [History] Metoprolol [Lopressor] 100 mg PO BID #60 tab 06/14/17 [Rx] Rivaroxaban [Xarelto] 20 mg PO DAILY #30 tablet 09/24/17 [Rx] Levothyroxine Sodium [Synthroid] 200 mcg PO QAM 10/07/17 [History] Diltiazem CD (24hr) [Cardizem CD] 120 mg PO DAILY #30 cap.er.24h 10/09/17 [Rx] 3 Allergy/AdvReac Type Severity Reaction Status Date / Time No Known Allergies Allergy Verified 07/08/17 11:47 All Systems PM: A 10-system review of systems was performed and is negative for pertinent findings except as documented above in the HPI. - Constitutional Constitutional: no fatigue, no fever(s), no falls, no malaise - EENT Eyes: no diplopia, no discharge, no pain Ears: no decreased hearing Nose, mouth and throat: no dry mouth, no mouth pain, no nasal congestion, no sinus pain - Cardiovascular Cardiovascular ROS IM: edema, irregular heart rhythm, other, no chest pain, no dyspnea, no dyspnea on exertion, no orthopnea, no palpitations Additional comments: Near syncopal feeling at times. - Respiratory Respiratory: no cough, no dyspnea on exertion, no wheezing, no chest congestion - Gastrointestinal Gastrointestinal: no abdominal pain, no constipation, no diarrhea, no melena, no vomiting - Genitourinary Genitourinary: no dysuria, no urinary frequency, no urinary hesitancy, no urinary urgency - Musculoskeletal Musculoskeletal ROS IM: no arthralgias, no muscle weakness - Integumentary Integumentary IM: no erythema, no rash - Neurological Neurological ROS: dizziness, no numbness, no weakness - Endocrine Endocrine IM: no cold intolerance, no heat intolerance - Hematologic/Lymphatic Hematologic/Lymphatic: no easy bleeding - Allergic/Immunologic Allergic/Immunologic: no throat swelling, no wheezing - Constitutional Vitals: Temp Pulse Resp BP Pulse Ox 98.1 F 100 16 125/81 100 10/31/17 15:08 10/31/17 16:47 10/31/17 16:47 10/31/17 16:47 10/31/17 16:47 General appearance: Present: A&O X 3, pleasant, answers questions appropriately - Head Head exam: Present: atraumatic, normocephalic - Eye Eye exam: Present: EOMI, PERRL, conjuntiva pink - ENT ENT exam: Present: mucous membranes dry, normal exam - Neck Neck exam general surgery: Present: normal inspection. Absent: lymphadenopathy , thyromegaly - Respiratory Respiratory exam: Present: decreased breath sounds, CTAB. Absent: rales, rhonchi, wheezes - Cardiovascular Cardiovascular exam: Present: irregular rhythm, tachycardia - GI/Abdominal GI/Abdominal exam: Present: normal bowel sounds, soft. Absent: mass, tenderness - Extremities Exam Extremities exam: Present: pedal edema, warm. Absent: tenderness - Neurological Exam Neurological exam: Present: alert, oriented X3, no focal deficits - Psychiatric Psychiatric exam: Present: normal affect, normal mood - Skin Skin exam: Present: dry, warm. Absent: rash Internal Med - H&P Results - Labs CBC & Chem 7: 10/31/17 15:57 10/31/17 15:57 Labs: Short CBC 10/31/17 Range/Units 15:57 WBC 9.2 (4.3-11.1) K/mcL Hgb 9.6 L (11.5-15.4) g/dL Hct 31.4 L (35.3-44.9) % Plt Count 173 (140-400) K/mcL Neutrophils # 6.8 (1.6-8.9) K/mcL BMP 10/31/17 15:57 Sodium 143 Potassium 3.8 Chloride 112 H Carbon Dioxide 24 BUN 13 Creatinine 0.99 Glucose 103 H Calcium 8.7 Cardiac Enzymes 10/31/17 Range/Units 15:57 Troponin I 0.01 (0-0.03) ng/mL Urine 10/31/17 Range/Units 16:23 Urine Color Yellow (Yellow) Urine Clarity Cloudy A (Clear) Urine pH 6.5 (5.0-8.0) pH Units Ur Specific [place] 1.020 (1.010-1.025) Urine Protein 30 H (Neg-Trace) mg/dL Urine Glucose (UA) Normal (Normal) mg/dL - Impressions ITS Impressions Chest X-Ray 10/31/17 15:26 IMPRESSION: 1. No acute cardiopulmonary abnormality. 2. Near complete resolution of previously present pulmonary opacity in keeping with resolving pneumonia or edema. 3. Mild cardiomegaly. D/ / Dequan Yeager / Dequan Yeager Interpreting Provider: Dequan Yeager - VTE Reasons for not Prescribing Prophylaxis: Not indicated-Anticoagulated or INR therapeutic
[2017-10-31] MEDS: Topiramate 25 MG TABLET PO SCH (20:45)
[2017-10-31] MEDS: Metoprolol 100 MG TABLET PO SCH (20:45)
[2017-11-01] MEDS: dilTIAZem HCl 100 MG in D5% in Water 50 ML IVC SCH (03:33)
[2017-11-01 08:00] LABS: BUN/Creatinine Ratio 14 (6-26); Blood Urea Nitrogen 14 mg/dL (7-20); Calcium 8.6 mg/dL (8.6-10.8); Carbon Dioxide 21 mEq/L (19-29); Chloride 113 mEq/L (98-109); Glucose 117 mg/dL (70-99); Magnesium 1.7 mg/dL (1.6-2.6); Osmolality,Calculated 294 (280-300); Potassium 3.5 mEq/L (3.5-4.5); Sodium 141 mEq/L (136-145); eGFR For African Americans > 60 (> 60); eGFR For Non-African Americans 55 (> 60)
[2017-11-01 08:02] LABS: Basophils % 0.5 %; Eosinophils # 0.1 K/mcL (0.0-0.6); Eosinophils % 1.6 %; Hematocrit 30.9 % (35.3-44.9); Hemoglobin 9.2 g/dL (11.5-15.4); Immature Granulocytes % 0.7 % (0-4); Lymphocytes # 1.4 K/mcL (0.6-4.6); Lymphocytes % 17.1 %; Mean Corpuscular HGB Conc 29.8 g/dL (31.6-35.5); Mean Corpuscular Hemoglobin 28.3 pg (28.0-33.3); Mean Corpuscular Volume 95.1 fL (83.0-100.0); Mean Platelet Volume 9.8 fL (9.4-12.4); Monocytes # 0.8 K/mcL (0.0-1.3); Monocytes % 9.5 %; Neutrophils # 5.9 K/mcL (1.6-8.9); Platelet Count 192 K/mcL (140-400); Red Blood Count 3.25 M/mcL (3.82-4.97); Red Cell Distribution Width 14.1 % (11.5-14.5); Segmented Neutrophils % 70.6 %
--- NOTE | 2017-11-01 09:02 | Internal Med Progress Note ---
<Manpreet Grossman - Last Filed: 11/01/17 08:56> Date of Encounter: 11/01/17 Time of Encounter: 08:57 - Assessment and plan (1) Atrial fibrillation with rapid ventricular response Current Visit: Yes Status: Acute Assessment and plan: Pt with hx of paroxysmal atrial fibrillation, admitted with A-fib RVR. Currently rate controlled. Currently on card drip. Continue metoprolol and hold PO Cardizem - Cardiology following appreciate their recommendations. Continue anticoagulation with Xarelto (2) Hypothyroidism Current Visit: No Status: Chronic Assessment and plan: TSH appropriate. Continue Synthroid. Qualifiers: Hypothyroidism type: acquired Qualified Code(s): E03.9 - Hypothyroidism, unspecified (3) Urinary tract infection Current Visit: Yes Status: Acute Assessment and plan: Urinalysis concerning for UTI with Large amount Leukocyte Esterase and WBC, many bacteria and few yeast. - Factor to consider; patient is post chemotherapy for Vulvar cancer by several months, still has vulvar mass, follows with Danika Ly MD. -Vitals stable, No Leukocyte elevation. Plan: Continue IV Rocephin Qualifiers: Urinary tract infection type: acute cystitis Hematuria presence: with hematuria Qualified Code(s): N30.01 - Acute cystitis with hematuria (4) History of pulmonary embolism Current Visit: No Status: Chronic Assessment and plan: hospitalized with A. carolyn and pulmonary embolism in June 2017 was placed on Xarelto (5) Anemia Current Visit: No Status: Chronic Assessment and plan: Chronic Normocytic anemia, stable - Continue to monitor. 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 Follows with Hematology/oncology: Danika Ly MD (7) DVT prophylaxis Current Visit: No Status: Acute Assessment and plan: Xarelo therapy. - Subjective Interval history: Ms. Holt has been seen and evaluated this morning. She is doing well without complaint. Denies any fevers, chills, diaphoresis, abdominal pain, N/V/D/C. She has chronic burning with urination secondary to a vulvar mass which she is awaiting resection. No further complaints or concerns this am. She would like to be discharged if she can today. - Constitutional Vitals: Temp Pulse Resp BP Pulse Ox 97.8 F 85 18 116/86 98 11/01/17 07:11 11/01/17 07:11 11/01/17 07:11 11/01/17 07:11 11/01/17 07:11 General appearance: Present: A&O X 3, pleasant, answers questions appropriately - Head Head exam: Present: atraumatic, normocephalic - Eye Eye exam: Present: PERRL, conjuntiva pink, sclera anicteric Pupils: Present: PERRL - Neck Neck exam general surgery: Present: supple, trachea midline. Absent: lymphadenopathy - Respiratory Respiratory exam: Present: CTAB. Absent: accessory muscle use, rales, rhonchi, wheezes - Cardiovascular Cardiovascular exam: Present: irregular rhythm. Absent: diastolic murmur, gallop, rubs, systolic murmur Additional comments: rate appropriate - GI/Abdominal GI/Abdominal exam: Present: normal bowel sounds, soft, no peritoneal signs. Absent: distended, tenderness - Extremities Exam Extremities exam: Present: warm, radial pulses palpable and symmetrical. Absent : calf tenderness, cyanotic, pedal edema - Neurological Exam Neurological exam: Present: alert, oriented X3, no focal deficits. Absent: pronater drift, facial droop, speech deficit - Skin Skin exam: Present: dry, intact Internal Medicine: Result - Labs CBC & Chem 7: 11/01/17 07:40 11/01/17 07:40 Labs: Short CBC 11/01/17 Range/Units 07:40 WBC 8.3 (4.3-11.1) K/mcL Hgb 9.2 L (11.5-15.4) g/dL Hct 30.9 L (35.3-44.9) % Plt Count 192 (140-400) K/mcL Neutrophils # 5.9 (1.6-8.9) K/mcL BMP 11/01/17 07:40 Sodium 141 Potassium 3.5 Chloride 113 H Carbon Dioxide 21 BUN 14 Creatinine 0.99 Glucose 117 H Calcium 8.6 - ABG Interpretation ABG results: PT/INR, D-dimer PT 14.1 Seconds (9.4-12.1) H 10/31/17 15:57 - VTE Reasons for not Prescribing Prophylaxis: Not indicated-Anticoagulated or INR therapeutic Consult Discharge Plan - Plan Referrals: Ashley Wright, AISLINN [Primary Care Provider] - <Sebastián Pompa - Last Filed: 11/01/17 17:27> Date of Encounter: 11/01/17 - Assessment and plan (1) Atrial fibrillation Current Visit: Yes Status: Acute Qualifiers: Atrial fibrillation type: paroxysmal Qualified Code(s): I48.0 - Paroxysmal atrial fibrillation (2) Hypomagnesemia Current Visit: Yes Status: Resolved (3) Urinary tract infection Current Visit: Yes Status: Acute Qualifiers: Urinary tract infection type: acute cystitis Hematuria presence: with hematuria Qualified Code(s): N30.01 - Acute cystitis with hematuria (4) Hypothyroidism Current Visit: No Status: Chronic Qualifiers: Hypothyroidism type: acquired Qualified Code(s): E03.9 - Hypothyroidism, unspecified (5) Anemia Current Visit: No Status: Chronic Qualifiers: Anemia type: other cause Other causes of anemia: chronic disease, other Qualified Code(s): D63.8 - Anemia in other chronic diseases classified elsewhere (6) HTN (hypertension) Current Visit: No Status: Chronic Qualifiers: Hypertension type: essential hypertension Qualified Code(s): I10 - Essential (primary) hypertension (7) History of pulmonary embolism Current Visit: No Status: Chronic (8) Vulvar cancer Current Visit: No Status: Chronic - Constitutional Vitals: Temp Pulse Resp BP Pulse Ox 98.0 F 89 16 136/91 80 11/01/17 17:00 11/01/17 17:00 11/01/17 17:00 11/01/17 17:00 11/01/17 17:00 Internal Medicine: Result - Labs CBC & Chem 7: 11/01/17 07:40 11/01/17 07:40 Labs: Short CBC 11/01/17 Range/Units 07:40 WBC 8.3 (4.3-11.1) K/mcL Hgb 9.2 L (11.5-15.4) g/dL Hct 30.9 L (35.3-44.9) % Plt Count 192 (140-400) K/mcL Neutrophils # 5.9 (1.6-8.9) K/mcL BMP 11/01/17 07:40 Sodium 141 Potassium 3.5 Chloride 113 H Carbon Dioxide 21 BUN 14 Creatinine 0.99 Glucose 117 H Calcium 8.6 - ABG Interpretation ABG results: PT/INR, D-dimer PT 14.1 Seconds (9.4-12.1) H 10/31/17 15:57 - Attending Attestation I examined this patient and my medical decision-making was reviewed with the Resident Physician on 11/01/17. I agree with the documented findings, disposition and treatment plan as described except to the extent set forth below. Ms Holt is currently in observation for rapid atrial fibrillation. She remains moderate to high risk due to potential for worsening cardiac status. Ms Holt is resting in bed. She is off the drip. She denies pain. No fever or chills. Exam Alert. Comfortable Mucus membranes dry Heart irreg Lungs clear I/P 1. Rapid afib- on PO Cardizem higher dose. Controlled heartrate at rest but increased to 120 with walking. Will watch overnight and give dose of Cardizem in AM. Anticipate d/c in AM 2. UTI - UA postive but culture negative. Will give dose of Rocephin in AM and not discharge on abx. Further diagnoses and plan as above.
[2017-11-01] MEDS: Metoprolol 100 MG TABLET PO SCH ×2 (10:17→20:17)
[2017-11-01] MEDS: cefTRIAXone 1,000 MG in Water for inj. (sterile) 10 ML IVP SCH (10:17)
--- NOTE | 2017-11-01 11:21 | Cardiology Consult Note ---
Date of Encounter: 11/01/17 Time of Encounter: 10:00 Assessment and Plan (1) Atrial fibrillation with rapid ventricular response Current Visit: Yes Status: Acute Recurrent afib with RVR. Now rate controlled on cardizem gtt 10mg/HR. Convert to cardizem 240 mg daily--previously on 120 mg daily. She is asymptomatic. TTE during recent admission 10/08/17 showed LVEF 55%, severe bi-atrial enlargement, no wall motion abnormality. TSH is normal. On xarelto for AC and tolerating well. Rhythm control verses rate control discussed. This is the third admission with atrial fibrillation with RVR. Continue rate control for now. Discussion w patient/family: The assessment and plan as outlined above was discussed with the patient and/or family members who expressed understanding and agreement. All questions were answered. Thank you for involving us in the care of your patient. Please call with any questions. History of Present Illness Consult date: 11/01/17 Requesting physician: Sebastián Pompa Consult reason: atrial fibrillation with RVR Chief complaint: fatigue History of present illness: Ms. Holt is a 72 year old female with a past medical history of PAF on xarelto , vulvular cancer s/p chemotherapy and radiation, chronic anemia, PE, HTN, depression, hypothyroidism, and chronic lower extremity edema, who presents as directed from the cardiology office for atrial fibrillation with RVR. She denies palpitations or chest pain. Admits to fatigue and weakness that she attributes to multiple hospital admissions and anemia. She is also found to have possible UTI. Cardiology consulted for management of her atrial fibrillation. Past Med Surg Social Fam HX - Past Medical History Medical history: atrial fibrillation, cancer, GERD, hypertension, migraine, pulmonary embolus, renal disease, thyroid disease Psychiatric history: anxiety, depression - Past Surgical History Surgical History: cancer surgery, hysterectomy, knee replacement, orthopedic, other - Social History Smoking Status: Never smoker Smokeless Tobacco Status: No Alcohol use: none Drug use: none - Family History Father Family Member Ethnicity: Non- Living Status: Age at : 70 Cause of : MS Hx Family Cardiac Disorders: Yes (CAD, HTN) Hx Family Respiratory Disorders: No Hx Family Cancer: Yes (Prostate) Hx Family GI Disorders: No Hx Family Endocrine Disorder: Yes (DM) Hx Family Neuromuscular Disorders: No Hx Family Neurologic Disorders: No Hx Family HEENT Disorders: No Hx Family Autoimmune Disorders: No Mother Family Member Ethnicity: Non- Living Status: Age at : 70 Cause of : MS Hx Family Cardiac Disorders: Yes (CAD) Hx Family Endocrine Disorder: Yes (DM) Hx Family Neuromuscular Disorders: Yes Brother Age: 71 Family Member Ethnicity: Non- Living Status: Still Living Hx Family Endocrine Disorder: Yes (DM) Sister Family Member Ethnicity: Non- Living Status: Age at : 45 Cause of : Lung disease Hx Family Respiratory Disorders: Yes (Lung disease) Medications and Allergies Topiramate [Topamax] 25 mg PO HS 04/25/17 [History] Metoprolol [Lopressor] 100 mg PO BID #60 tab 06/14/17 [Rx] Rivaroxaban [Xarelto] 20 mg PO DAILY #30 tablet 09/24/17 [Rx] Levothyroxine Sodium [Synthroid] 200 mcg PO QAM 10/07/17 [History] Diltiazem CD (24hr) [Cardizem CD] 120 mg PO DAILY #30 cap.er.24h 10/09/17 [Rx] 3 Allergy/AdvReac Type Severity Reaction Status Date / Time No Known Allergies Allergy Verified 07/08/17 11:47 All Systems Review: A 10-system review of systems was performed and is negative for pertinent findings except as documented above in the HPI. Physical Examination Vital Signs, Last 4 Hours Pulse BP 11/01/17 10:30 78 124/87 General: Conversant, No Apparent Distress HEENT: Atraumatic, Normocephaly, Mucus Membranes Moist Neck: No JVD, Normal carotid pulses Cardiac: Other (Irregularly irregular) Lungs: Normal Breath Sounds, No Wheeze, Rales, Rhonchi Neuro: Alert and responsive, No focal deficits noted Abdomen: Soft, Non-Tender Skin: No rashes noted on visualized skin Musculoskeletal: No Chest Wall Tenderness Extremities: No Clubbing, No Cyanosis, Normal Pulses, Other (1+ BLE edema.) Results 11/01/17 07:40 11/01/17 07:40 Lab Results 11/01/17 11/01/17 07:40 07:40 WBC 8.3 Hgb 9.2 L Hct 30.9 L Plt Count 192 Sodium 141 Potassium 3.5 Chloride 113 H Carbon Dioxide 21 BUN 14 Creatinine 0.99 Glucose 117 H Calcium 8.6 Magnesium 1.7 - Imaging and Cardiology Echo: report reviewed - EKG Interpretation EKG results cardiology: personally reviewed Consult Discharge Plan - Plan Referrals: Ashley Wright CNP [Primary Care Provider] -
[2017-11-01] MEDS ORDERED: *HR* Rivaroxaban 10 MG TABLET PO SCH (17:00)
[2017-11-01] MEDS: Topiramate 25 MG TABLET PO SCH (20:17)
[2017-11-02 04:56] LABS: Basophils % 0.4 %; Eosinophils # 0.2 K/mcL (0.0-0.6); Hemoglobin 8.8 g/dL (11.5-15.4); Immature Granulocytes % 0.4 % (0-4); Lymphocytes # 1.7 K/mcL (0.6-4.6); Lymphocytes % 18.3 %; Mean Corpuscular HGB Conc 30.3 g/dL (31.6-35.5); Mean Corpuscular Hemoglobin 28.9 pg (28.0-33.3); Mean Corpuscular Volume 95.1 fL (83.0-100.0); Mean Platelet Volume 10.1 fL (9.4-12.4); Monocytes # 1.1 K/mcL (0.0-1.3); Monocytes % 11.9 %; Neutrophils # 6.1 K/mcL (1.6-8.9); Platelet Count 164 K/mcL (140-400); Red Blood Count 3.05 M/mcL (3.82-4.97); Red Cell Distribution Width 14.1 % (11.5-14.5)
[2017-11-02 05:06] LABS: Albumin 2.1 g/dL (3.5-5.0); Albumin/Globulin Ratio 0.6 (1.1-2.2); Alkaline Phosphatase 77 Units/L (38-126); Aspartate Amino Transferase 9 Units/L (5-34); BUN/Creatinine Ratio 16 (6-26); Bilirubin,Total 0.3 mg/dL (0.2-1.2); Blood Urea Nitrogen 15 mg/dL (7-20); Calcium 8.4 mg/dL (8.6-10.8); Carbon Dioxide 20 mEq/L (19-29); Chloride 113 mEq/L (98-109); Globulin 3.8 g/dL (2.4-3.5); Glucose 98 mg/dL (70-99); Osmolality,Calculated 297 (280-300); Potassium 3.5 mEq/L (3.5-4.5); Sodium 143 mEq/L (136-145); Total Protein 5.9 g/dL (6.0-8.3); eGFR For African Americans > 60 (> 60); eGFR For Non-African Americans 58 (> 60)
[2017-11-02 05:08] LABS: Alanine Aminotransferase < 6 Units/L (0-55)
[2017-11-02] MEDS ORDERED: Diltiazem CD (24hr) 240 MG CAPSULE PO SCH (09:00)
[2017-11-02] MEDS: Metoprolol 100 MG TABLET PO SCH (10:15)
[2017-11-02] MEDS: cefTRIAXone 1,000 MG in Water for inj. (sterile) 10 ML IVP SCH (10:15)
[2017-11-02 11:07] VITALS: BP 135/93
--- NOTE | 2017-11-02 12:12 | Internal Med Progress Note ---
Date of Encounter: 11/02/17 Time of Encounter: 12:10 - Assessment and plan (1) Atrial fibrillation with rapid ventricular response Current Visit: Yes Status: Acute Assessment and plan: Pt with hx of paroxysmal atrial fibrillation, admitted with A-fib RVR. Currently rate controlled. - Patient does have HR upto 130's with ambulation, will add an extra dose of Cardizem 60 PO and re-evaluate this afternoon - Continue Metoprolol 100mg PO BID - Continue anticoagulation with Xarelto (2) Hypothyroidism Current Visit: No Status: Chronic Assessment and plan: TSH appropriate. Continue Synthroid. Qualifiers: Hypothyroidism type: acquired Qualified Code(s): E03.9 - Hypothyroidism, unspecified (3) Urinary tract infection Current Visit: Yes Status: Acute Assessment and plan: Urinalysis concerning for UTI with Large amount Leukocyte Esterase and WBC, many bacteria and few yeast. - Factor to consider; patient is post chemotherapy for Vulvar cancer by several months, still has vulvar mass, follows with Danika Ly MD. -Vitals stable, No Leukocyte elevation. - Urine Culture: No significant bacterial growth. Plan: Continue IV Rocephin - Will need PO script when discharged Qualifiers: Urinary tract infection type: acute cystitis Hematuria presence: with hematuria Qualified Code(s): N30.01 - Acute cystitis with hematuria (4) History of pulmonary embolism Current Visit: No Status: Chronic Assessment and plan: hospitalized with Vladimir leon and pulmonary embolism in June 2017 was placed on Xarelto (5) Anemia Current Visit: No Status: Chronic Assessment and plan: Chronic Normocytic anemia, stable - Continue to monitor. 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 Follows with Hematology/oncology: Danika Ly MD (7) DVT prophylaxis Current Visit: No Status: Acute Assessment and plan: Xarelo therapy. - Subjective Interval history: Ms. Holt has been seen and evaluated this morning. She is doing well without complaint. Denies any fevers, chills, diaphoresis, abdominal pain, N/V/D/C. She has chronic burning with urination secondary to a vulvar mass which she is awaiting resection. No further complaints or concerns this am. She would like to be discharged if she can today. - Constitutional Vitals: Temp Pulse Resp BP Pulse Ox 98.2 F 98 18 135/93 98 11/02/17 04:33 11/02/17 10:20 11/02/17 10:20 11/02/17 10:20 11/02/17 10:20 General appearance: Present: A&O X 3, pleasant, answers questions appropriately Internal Medicine: Result - Labs CBC & Chem 7: 11/02/17 03:29 11/02/17 03:29 Labs: Short CBC 11/02/17 Range/Units 03:29 WBC 9.2 (4.3-11.1) K/mcL Hgb 8.8 L (11.5-15.4) g/dL Hct 29.0 L (35.3-44.9) % Plt Count 164 (140-400) K/mcL Neutrophils # 6.1 (1.6-8.9) K/mcL BMP 11/02/17 03:29 Sodium 143 Potassium 3.5 Chloride 113 H Carbon Dioxide 20 BUN 15 Creatinine 0.95 Glucose 98 Calcium 8.4 L Liver Function 11/02/17 Range/Units 03:29 Total Bilirubin 0.3 (0.2-1.2) mg/dL AST 9 (5-34) Units/L ALT < 6 (0-55) Units/L Alkaline Phosphatase 77 (38-126) Units/L Albumin 2.1 L (3.5-5.0) g/dL - ABG Interpretation ABG results: PT/INR, D-dimer PT 14.1 Seconds (9.4-12.1) H 10/31/17 15:57 - VTE Reasons for not Prescribing Prophylaxis: Not indicated-Anticoagulated or INR therapeutic Consult Discharge Plan - Plan Referrals: Ashley Wright, AISLINN [Primary Care Provider] -
--- NOTE | 2017-11-02 14:06 | Discharge Summary ---
Addendum entered and electronically signed by Sebastián Pompa DO 11/02/17 14:52 : I examined this patient and my medical decision-making was reviewed with the Resident Physician on 11/02/17. I agree with the documented findings, disposition and treatment plan as described except to the extent set forth below. Ms Holt has been admitted for rapid atrial fibrillation. She had her med dose adjusted and her heartrate has improved even with ambulation. She is afebrile with stable vitals. She is ready for discharge home. Exam Alert. Comfortable Mucus membranes dry Heart irreg - not tachy Lungs no wheeze Plan D/C home today Cardizem 300mg daily Follow up with PCP and cardiology Original Note: Date of Encounter: 11/02/17 Time of Encounter: 14:02 - Discharge Diagnosis (1) Atrial fibrillation with rapid ventricular response Priority: Primary Status: Acute (2) Hypothyroidism Priority: Secondary Status: Chronic Qualifiers: Hypothyroidism type: acquired Qualified Code(s): E03.9 - Hypothyroidism, unspecified (3) Urinary tract infection Priority: Primary Status: Acute Qualifiers: Urinary tract infection type: acute cystitis Hematuria presence: with hematuria Qualified Code(s): N30.01 - Acute cystitis with hematuria (4) History of pulmonary embolism Priority: Secondary Status: Chronic (5) Anemia Priority: Secondary Status: Chronic Qualifiers: Anemia type: other cause Other causes of anemia: chronic disease, other Qualified Code(s): D63.8 - Anemia in other chronic diseases classified elsewhere (6) Vulvar cancer Priority: Secondary Status: Chronic (7) DVT prophylaxis Priority: Secondary Status: Acute - Discharge Medications Prescriptions: Cefdinir [Omnicef] 300 mg PO BID #8 capsule Diltiazem CD (24hr) [Cardizem CD] 300 mg PO DAILY 30 Days #30 cap.er.24h Home Medications: Topiramate [Topamax] 25 mg PO HS 04/25/17 [History] Rivaroxaban [Xarelto] 20 mg PO DAILY #30 tablet 09/24/17 [Rx] Levothyroxine Sodium [Synthroid] 200 mcg PO QAM 10/07/17 [History] Metoprolol [Lopressor] 50 mg PO BID 11/01/17 [History] Cefdinir [Omnicef] 300 mg PO BID #8 capsule 11/02/17 [Rx] Diltiazem CD (24hr) [Cardizem CD] 300 mg PO DAILY 30 Days #30 cap.er.24h [Rx] Allergies/Adverse Reactions: 3 Allergy/AdvReac Type Severity Reaction Status Date / Time No Known Allergies Allergy Verified 07/08/17 11:47 Date of admission: 10/31/17 18:58 Primary care physician: Ashley Wright, Consults: 11/01/17 06:44 Consult to Nutrition [CONS] Routine Comment: Consulting Provider: NUTRITION Reason for Dietary Consult: MST Score Discharging clinician: Manpreet Grossman Anticipated date of discharge: 11/02/17 - Patient Status Disposition: Home, Self-Care Condition: Fair Functional capacity at discharge: independent ambulation Overall status at discharge: patient is progressing back to baseline - Discharge Instructions Instructions: Atrial Fibrillation (DC) Follow Up With: Ashley Wright, AISLINN [Primary Care Provider] - J Carlos Baldwin CNP [Advanced Practice Nurse] - Additional Instructions: Follow up with PCP in the next 3-5 days Follow up with [facility] for evaluation of A-fib control Take medications as prescribed. - Diet and Activity Activity: increase activity as tolerated Diet: advance to your usual diet Hospital course: Ms. Holt is a 72 year old female - Time Spent with Patient Total time spent providing and/or coordinating discharge services: - Constitutional Vitals: Temp Pulse Resp BP Pulse Ox 98.2 F 98 18 135/93 98 11/02/17 04:33 11/02/17 10:20 11/02/17 10:20 11/02/17 10:20 11/02/17 10:20 General appearance: Present: A&O X 3, pleasant, answers questions appropriately - Head Head exam: Present: atraumatic, normocephalic - Eye Eye exam: Present: PERRL, conjuntiva pink, sclera anicteric Pupils: Present: PERRL - Neck Neck exam general surgery: Present: supple, trachea midline. Absent: lymphadenopathy - Respiratory Respiratory exam: Present: CTAB. Absent: accessory muscle use, rales, rhonchi, wheezes - Cardiovascular Cardiovascular exam: Present: irregular rhythm. Absent: diastolic murmur, gallop, rubs, systolic murmur - GI/Abdominal GI/Abdominal exam: Present: normal bowel sounds, soft, no peritoneal signs. Absent: distended, tenderness - Extremities Exam Extremities exam: Present: warm, radial pulses palpable and symmetrical. Absent : calf tenderness, cyanotic, pedal edema - Neurological Exam Neurological exam: Present: CN II-XII intact, oriented X3, no focal deficits. Absent: pronater drift, facial droop, speech deficit - Skin Skin exam: Present: dry, intact - VTE Reasons for not Prescribing Prophylaxis: Not indicated-Anticoagulated or INR therapeutic
--- NOTE | 2017-11-03 16:54 | Electrocardiograph Report ---
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
== END 2017-11-02 17:30 | disposition home or self-care (01) ==
LOC: EMEROO 15:05 → 2NENU 15:05 → SUATTDRO 18:58 → 2NENU 19:33
PROVIDERS: ADMIT Internal Medicine; ATTEND Internal Medicine